=== PATIENT | female | born 1975 | race Caucasian/White ===

== ENCOUNTER → 2017-02-24 | Outpatient (CLI) | payer BC ==
[~2017-02-24] MED LIST: ACET-1311 PO; ALBU0.08 INH; CALC500C3 PO; CLR10 PO; FLUT0.0529 NAE; GADAVIST IV PRN; IBUP-1050 PO; LORA-741 PO; MULT-506 PO; SERT50TA PO; TAMO20TA9 PO
--- NOTE | 2017-02-24 17:14 | MAMMOGRAPHY REPORT ---
BREAST MRI OF BOTH BREASTS : 02/24/2017 CLINICAL HISTORY: History of breast cancer status post bilateral mastectomies with saline implant rec onstruction. COMPARISON: Comparison is made to exams dated: 02/20/2015 mammogram, 02/20/2015 MRI biopsy, 01/23/2015 ricardo mogram, 01/23/2015 MRI biopsy, and 12/28/2014 breast MRI - [facility]. Technique: The patient was placed prone in a dedicated breast imaging coil. Precontrast axial T1-gigi ghted, axial T2-weighted fat saturation, axial T1-weighted fat saturation, and sagittal and axial T2 STIR sequences were obtained. After the administration of 6 mL of Gadavist IV contrast, sequential T1 -weighted fat saturation images were obtained. Subtraction images were obtained of the dynamic contr ast enhanced sequences, and 3-D reformations were performed. The [employer] software was used for kinetic analysis. Findings: Again noted are postsurgical changes status post bilateral mastectomy with saline implant reconstruct ion. The bilateral saline implants are intact without evidence of rupture. There are no suspicious masses or areas of abnormal non-mass enhancement within either reconstructed breast. There is no evid ence of axillary adenopathy. The chest wall structures are negative. Visualized extramammary soft t issues are grossly unremarkable. IMPRESSION: ACR BI-RADS CATEGORY 2: BENIGN Status post bilateral mastectomy with saline implant reconstruction. No MRI evidence of malignancy i n either reconstructed breast. Vidya Lozano M.D. 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 letter sent: Normal 1/2 BI-RADS Code: ACR BI-RADS Category 2: Benign
== END | disposition home or self-care (01) ==
LOC: C.MRI 07:58
PROVIDERS: ATTEND Internal Medicine Hematology
DX: C50.412 Malignant neoplasm of upper-outer quadrant of left female breast (principal); Z90.13 Acquired absence of bilateral breasts and nipples

== ENCOUNTER → 2017-04-22 | Outpatient (CLI) | payer BC ==
[~2017-04-22] MED LIST changes: -GADAVIST IV PRN; +TAMO20TA47 PO; -TAMO20TA9 PO
[2017-04-22 14:18] VITALS: BP 94/56; PULSE 56; TEMP 36.7; O2SAT 98
--- NOTE | 2017-04-22 16:46 | Radiation Oncology Follow-Up ---
Radiation Oncology Follow-Up Date of Visit Apr 22, 2017. 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 Mendieta is a 41-year-old female without a family history of breast cancer. This patient was noted to have a palpable left breast lesion on a routine gynecologic visit. She therefore underwent her first ever bilateral mammogram performed on 11/30/2014. A palpable lesion was confirmed. The mammogram showed grouped indistinct calcifications present in the left breast at the 2 o' clock position. Targeted ultrasound demonstrated a corresponding irregular hypoechoic mass with internal vascularity and internal calcifications measuring 2.2 x 1.2 x 1.8 cm. An additional hypoechoic masses noted at the 3 o'clock position 2 cm from the nipple measuring 0.7 x 0.6 x 0.7 cm. A third palpable hypoechoic solid mass was noted at the 2 to 3 o'clock position 3 cm from the nipple measuring 1.0 x 0.6 x 1.1 cm. Targeted ultrasound of the left axilla demonstrates physiological-appearing lymph nodes. The left breast was extremely dense. The right breast was also extremely dense with scattered calcifications likely Velcade of calcium. These findings are likely benign with a recommended short interval follow-up in 6 months. Biopsy of these lesions were recommended. On 12/06/2014 core biopsies of Site A and Site B were performed. The first was at the 2 o'clock position revealing invasive carcinoma grade 2 with ductal carcinoma in situ, intermediate grade nuclei and solid type. Lymphovascular invasion was present. The biopsy of the second site was 4 cm from the nipple at the 3 o'clock position also revealed invasive carcinoma grade 2 with lymphovascular invasion. Accession #: [id number]. Site A was ER strongly positive and CT weakly positive with HER-2/alexy negative. Site B was ER strongly positive, CT weakly positive and HER-2/alexy negative. The patient ultimately went on to have an Oncotype DX with a recurrence score of 32 placing her in the high risk category. Patient underwent additional staging procedures including an MRI of the bilateral breast tissue. This was ordered by Dr. Leonides Hein. This revealed several masses and non-mass enhancement within the left breast consistent with the biopsy-proven left breast cancer and compatible with multicentric disease. There was suspicion for pectoralis muscle invasion by the mass in the far posterior 3:00 axis. However no left axillary or right axillary lymphadenopathy was identified. Scattered foci of enhancement was noted within the right breast probably benign. However given the extent of the contralateral disease they suggested consideration of sampling the most suspicious focus of enhancement measuring 3.9 mm in the posterior 7 to 8 o' clock position of the right breast. Therefore on 01/23/2015 the patient underwent an MRI biopsy of the right breast the enhancing focus in the medial right breast revealed benign breast tissue with fibrocystic change and adenosis Case: [id number] the biopsy from the enhancing focus of the right upper inner quadrant revealed fibrocystic change with scattered microcalcifications but no malignancy. Case: [id number]. Unilateral right digital diagnostic mammogram performed on 02/20/2015 identified a new biopsy marker clip in the right breast following the MRI guided biopsy. The patient met with Dr. Leonides Hein to discuss treatment options. She also met with Dr. Placido Cantu the plastic surgeon. The patient did undergo genetic testing and reportedly was negative for BRCA1 and 2. However after discussions with her surgeons the patient decided to proceed with bilateral mastectomies and immediate breast reconstruction with tissue expanders. This procedure was performed on 02/25/2015 consisting of a left mastectomy with sentinel lymph node biopsy and completion left axillary lymph node dissection, right mastectomy and right axillary sentinel lymph node biopsy followed by reconstruction. The right breast tissue revealed fibrocystic change with biopsy cavity identified but no intraductal or invasive carcinoma identified. The right axillary sentinel node biopsy revealed no metastatic carcinoma. 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 Grossly 2 separate tumor nodules were noted one measuring 3.0 cm and the second 1.5 cm. These were approximately 0.7 cm apart. A section taken from the tissue between the 2 nodules showed no similar appearing carcinoma. 2 nodules were somewhat similar in appearance both with micropapillary carcinoma features. The smaller nodule also had some mucinous features. The left sentinel node revealed metastatic carcinoma containing a 1.0 x 0.2 mm subcutaneous capsular metastasis. The additional axillary dissection identified an additional 12 axillary lymph nodes one of which contained a 0.2 mm sub-capsular deposit of micrometastatic carcinoma. No macro metastatic isolated tumor cells are identified and no extranodal extension is noted. Therefore a total of 2 out of 13 lymph nodes were positive. The margin status was carefully evaluated. The invasive carcinoma approached within 0.2 cm of the deep margin. DCIS approached within 0.1 cm of the deep margin. Away from the skin is a superficial soft tissue/ breast parenchymal margin and invasive carcinoma shows focal involvement of the superficial margin (at this margin is cauterized carcinoma). The final AJCC stage is pT2 pN1mi. Case: [id number]. Patient was suddenly seen by Dr. Denny Peterson for consideration of adjuvant systemic chemotherapy. His recommendation was based on the NCCN guidelines. He recommended 4 cycles of TC chemotherapy followed by tamoxifen. The patient was able to complete all 4 cycles without interruption, dose reduction or delays. She completed her systemic chemotherapy on May 30. The question of adjuvant radiation was discussed with the patient both by Dr. Hein and by Dr. Peterson. We are seeing the patient in referral for evaluation and discussion of the pros and cons of adjuvant radiation in this setting. She underwent radiation therapy to the left chest wall, supraclavicular area, and axilla. This was completed on 09/25/2015. She received 6120 cGy. Interim History She's been doing well over this past year. She denies any changes to the implanted breasts. She is noted no masses or tenderness no change of the axilla. She has a small area of dry skin in the axilla. She had recheck imaging with an MRI of the breasts 02/24/2017. This showed post bilateral mastectomies with saline implant reconstruction. No MRI evidence of malignancy in either reconstructed breast. On her last visit to Dr. Peterson she had mentioned a feeling of lightheadedness with standing quickly. She also has a tingling sensation on the right side of her head. Dr. Peterson ordered an MRI. This is going to be performed at this Wednesday. Allergies Coded Allergies: Cephalosporins (Verified Allergy, Unknown, KEFLEX, 02/25/15) Home Medications Scheduled Calcium Carbonate (Tums), 2 TAB PO DAILY Fluticasone Propionate (Nasal) (Flonase), 2 SPRAYS PATO DAILY Loratadine (Claritin), 10 MG PO QAM Multivitamin (Multivitamin), 1 TAB PO AM Sertraline (Zoloft), 75 MG PO DAILY Tamoxifen (Nolvadex), 20 MG PO DAILY Scheduled PRN Acetaminophen (Tylenol), 650 MG PO Q6 PRN for Pain or Fever Albuterol Soln (Proventil 0.083% 2.5MG/3ML), 2.5 MG INH Q6 PRN for SOB/Wheezing Ibuprofen (Advil), 200-600 MG PO Q4H PRN for Pain Review of Systems Gastrointestinal: Symptoms: WNL Oral: Symptoms: No Problems Respiratory: Symptoms: WNL Respiratory Comments: Dry cough from dry weather - got over cold 1-2 weeks ago Urinary: Symptoms: WNL Skin: Symptoms: No Problems Breast: Right Upper Arm Measurement: 26.0 Right Mid Arm Measurement: 23.5 Right Wrist Measurement: 15.5 Left Upper Arm Measurement: 26.0 Left Mid Arm Measurement: 22.5 Left Wrist Measurement: 14.8 Arm Dominence: Right Patient Cosmetic Evaluation: Excellent Staff Cosmetic Evalaluation: Excellent Physical Exam Vital Signs Date Time Temp Pulse Resp B/P (MAP) Pulse Ox O2 Delivery O2 Flow Rate FiO2 04/22/17 14:18 36.7 56 16 94/56 98 Pain: Side: Bilateral Pain Location: Breast Patient Pain Scale: 0 - 10 Initial Pain Intensity: 0.0 Pain Description: Dull, Aching, Soreness Additional Comments: Under left axilla - where lymph nodes were removed Fatigue: None General Appearance: no apparent distress Eyes: normal inspection, EOMI ENT: normal ENT inspection, hearing grossly normal Neck: no adenopathy, thyroid normal Respiratory/Chest: lungs clear, no respiratory distress, no accessory muscle use Breast: Breast examination reveals bilateral implants. There are no masses or tenderness no axillary adenopathy. There is some tightness of the pectoralis minor area on the left. There is also a small 1 cm patch of skin dryness in the axilla. There is no telangiectasia. Cardiovascular: regular rate, rhythm, no gallop, no murmur Abdomen: non tender Extremities: no pedal edema Neurologic/Psychiatric: no motor/sensory deficits, alert, normal mood/affect Skin: warm/dry Additional Studies Patient: DEE DEE MENDIETA [facility] Rec: [id number] Address1: [address] Address2: [facility] ID: [id number] Date: 1975 Sex: F Ref Phy: Denny Peterson M.D. Att Phy: Denny Peterson M.D. Darlene Phy: Cuba Borrero M.D. Inter Phy: Vidya Lozano MD [facility] Zip: [place] [address] SC: C.MRI Report #: [id number] Ground Host/Hostess: FAUZIA Diagnosis: HX OF BC, BILATERAL MASTECTOMIES, IMPLANTS Service Date: 02/24/17 MNE: [id number] Ordering Dr: Denny Peterson M.D. CC: Denny Peterson M.D. CONF: DICTATED BY: Vidya Lozano MD MAMMOGRAPHY REPORT BREAST MRI OF BOTH BREASTS : 02/24/2017 CLINICAL HISTORY: History of breast cancer status post bilateral mastectomies with saline implant reconstruction. COMPARISON: Comparison is made to exams dated: 02/20/2015 mammogram, 02/20/2015 MRI biopsy, 01/23/2015 mammogram, 01/23/2015 MRI biopsy, and 12/28/2014 breast MRI - [facility]. Technique: The patient was placed prone in a dedicated breast imaging coil. Precontrast axial T1-weighted, axial T2-weighted fat saturation, axial T1- weighted fat saturation, and sagittal and axial T2 STIR sequences were obtained. After the administration of 6 mL of Gadavist IV contrast, sequential T1-weighted fat saturation images were obtained. Subtraction images were obtained of the dynamic contrast enhanced sequences, and 3-D reformations were performed. The [employer] software was used for kinetic analysis. Findings: Again noted are postsurgical changes status post bilateral mastectomy with saline implant reconstruction. The bilateral saline implants are intact without evidence of rupture. There are no suspicious masses or areas of abnormal non-mass enhancement within either reconstructed breast. There is no evidence of axillary adenopathy. The chest wall structures are negative. Visualized extramammary soft tissues are grossly unremarkable. IMPRESSION: ACR BI-RADS CATEGORY 2: BENIGN Status post bilateral mastectomy with saline implant reconstruction. No MRI evidence of malignancy in either reconstructed breast. Vidya Lozano M.D. 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 Peterson. She'll undergo the MRI on Wednesday for the lightheadedness and "tingling" sensation of the right scalp. She continues on tamoxifen. We asked her to return to our office in 1 year. She may call if she has any questions or concerns in the interim. Total Time In Follow-Up I spent 20 minutes speaking to the patient performing examination. I spent 15 minutes reviewing information in completing this note. Copy To Cuba Borrero M.D.; Denny Peterson M.D. Problem Qualifiers (1) Breast cancer: Breast location: upper outer quadrant of breast Estrogen receptor status: positive Patient sex: female Laterality: left Qualified Codes: C50.412 - Malignant neoplasm of upper-outer quadrant of left female breast; Z17.0 - Estrogen receptor positive status [ER+]
== END | disposition home or self-care (01) ==
LOC: C.ONC 14:00
PROVIDERS: ATTEND Physician Assistant Medical
DX: Z08 Encounter for follow-up examination after completed treatment for malignant neoplasm (principal); Z92.3 Personal history of irradiation; Z85.3 Personal history of malignant neoplasm of breast

== ENCOUNTER → 2018-04-21 | Outpatient (CLI) | payer BC ==
[2017-04-22 14:18] VITALS: BP 94/56; PULSE 56
[~2018-04-21] MED LIST changes: +ALBINS/ INH; +CETI10TA84 PO; +FLUT0.15 NAE; -LORA-741 PO; -TAMO20TA47 PO; +TAMO20TA9 PO
[2018-04-21 13:52] VITALS: BP 94/58; PULSE 56; TEMP 36.8; O2SAT 98
--- NOTE | 2018-04-21 16:07 | Radiation Oncology Follow-Up ---
Radiation Oncology Follow-Up Date of Visit Apr 21, 2018. 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 Davis is without a family history of breast cancer. This patient was noted to have a palpable left breast lesion on a routine gynecologic visit. She therefore underwent her first ever bilateral mammogram performed on 11/30/2014. A palpable lesion was confirmed. The mammogram showed grouped indistinct calcifications present in the left breast at the 2 o'clock position. Targeted ultrasound demonstrated a corresponding irregular hypoechoic mass with internal vascularity and internal calcifications measuring 2.2 x 1.2 x 1.8 cm. An additional hypoechoic masses noted at the 3 o'clock position 2 cm from the nipple measuring 0.7 x 0.6 x 0.7 cm. A third palpable hypoechoic solid mass was noted at the 2 to 3 o'clock position 3 cm from the nipple measuring 1.0 x 0.6 x 1.1 cm. Targeted ultrasound of the left axilla demonstrates physiological -appearing lymph nodes. The left breast was extremely dense. The right breast was also extremely dense with scattered calcifications likely Velcade of calcium. These findings are likely benign with a recommended short interval follow-up in 6 months. Biopsy of these lesions were recommended. On 12/06/2014 core biopsies of Site A and Site B were performed. The first was at the 2 o'clock position revealing invasive carcinoma grade 2 with ductal carcinoma in situ, intermediate grade nuclei and solid type. Lymphovascular invasion was present. The biopsy of the second site was 4 cm from the nipple at the 3 o'clock position also revealed invasive carcinoma grade 2 with lymphovascular invasion. Accession #: [id number]. Site A was ER strongly positive and DC weakly positive with HER-2/alexy negative. Site B was ER strongly positive, DC weakly positive and HER-2/alexy negative. The patient ultimately went on to have an Oncotype DX with a recurrence score of 32 placing her in the high risk category. Patient underwent additional staging procedures including an MRI of the bilateral breast tissue. This was ordered by Dr. Leonides Hein. This revealed several masses and non-mass enhancement within the left breast consistent with the biopsy-proven left breast cancer and compatible with multicentric disease. There was suspicion for pectoralis muscle invasion by the mass in the far posterior 3:00 axis. However no left axillary or right axillary lymphadenopathy was identified. Scattered foci of enhancement was noted within the right breast probably benign. However given the extent of the contralateral disease they suggested consideration of sampling the most suspicious focus of enhancement measuring 3.9 mm in the posterior 7 to 8 o' clock position of the right breast. Therefore on 01/23/2015 the patient underwent an MRI biopsy of the right breast the enhancing focus in the medial right breast revealed benign breast tissue with fibrocystic change and adenosis Case: [id number] the biopsy from the enhancing focus of the right upper inner quadrant revealed fibrocystic change with scattered microcalcifications but no malignancy. Case: [id number]. Unilateral right digital diagnostic mammogram performed on 02/20/2015 identified a new biopsy marker clip in the right breast following the MRI guided biopsy. The patient met with Dr. Leonides Hein to discuss treatment options. She also met with Dr. Placido Cantu the plastic surgeon. The patient did undergo genetic testing and reportedly was negative for BRCA1 and 2. However after discussions with her surgeons the patient decided to proceed with bilateral mastectomies and immediate breast reconstruction with tissue expanders. This procedure was performed on 02/25/2015 consisting of a left mastectomy with sentinel lymph node biopsy and completion left axillary lymph node dissection, right mastectomy and right axillary sentinel lymph node biopsy followed by reconstruction. The right breast tissue revealed fibrocystic change with biopsy cavity identified but no intraductal or invasive carcinoma identified. The right axillary sentinel node biopsy revealed no metastatic carcinoma. 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 Grossly 2 separate tumor nodules were noted one measuring 3.0 cm and the second 1.5 cm. These were approximately 0.7 cm apart. A section taken from the tissue between the 2 nodules showed no similar appearing carcinoma. 2 nodules were somewhat similar in appearance both with micropapillary carcinoma features. The smaller nodule also had some mucinous features. The left sentinel node revealed metastatic carcinoma containing a 1.0 x 0.2 mm subcutaneous capsular metastasis. The additional axillary dissection identified an additional 12 axillary lymph nodes one of which contained a 0.2 mm sub-capsular deposit of micrometastatic carcinoma. No macro metastatic isolated tumor cells are identified and no extranodal extension is noted. Therefore a total of 2 out of 13 lymph nodes were positive. The margin status was carefully evaluated. The invasive carcinoma approached within 0.2 cm of the deep margin. DCIS approached within 0.1 cm of the deep margin. Away from the skin is a superficial soft tissue/ breast parenchymal margin and invasive carcinoma shows focal involvement of the superficial margin (at this margin is cauterized carcinoma). The final AJCC stage is pT2 pN1mi. Case: [id number]. Patient was suddenly seen by Dr. Denny Peterson for consideration of adjuvant systemic chemotherapy. His recommendation was based on the NCCN guidelines. He recommended 4 cycles of TC chemotherapy followed by tamoxifen. The patient was able to complete all 4 cycles without interruption, dose reduction or delays. She completed her systemic chemotherapy on May 30. The question of adjuvant radiation was discussed with the patient both by Dr. Hein and by Dr. Peterson. We are seeing the patient in referral for evaluation and discussion of the pros and cons of adjuvant radiation in this setting. She underwent radiation therapy to the left chest wall, supraclavicular area, and axilla. This was completed on 09/25/2015. She received 6120 cGy. Interim History She has been doing well over the past year. She is noticed no change to the chest wall or implant and breast area. There are no masses or tenderness and no axillary adenopathy. She has had no swelling of her arm. She is on tamoxifen and denies side effects. She is followed with MRIs of the breast. She had an MRI March 31, 2018. This showed postsurgical changes with bilateral mastectomies. The saline implants are intact. There is no evidence of rupture. There were no suspicious enhancing masses or areas of abnormal non- mass enhancement within either reconstructed breast. Visualized portion of the extramammary soft tissue are grossly unremarkable. This was given a BI-RADS Category 2. No MRI evidence of malignancy. Allergies Coded Allergies: Cephalosporins (Verified Allergy, Unknown, KEFLEX, 02/25/15) Home Medications Scheduled Calcium Carbonate (Tums), 2 TAB PO DAILY Cetirizine (Zyrtec), 10 MG PO DAILY Fluticasone Propionate (Nasal) (Flonase), 2 SPRAYS PATO DAILY Multivitamin (Multivitamin), 1 TAB PO AM Sertraline (Zoloft), 50 MG PO DAILY Tamoxifen (Nolvadex), 20 MG PO DAILY Scheduled PRN Acetaminophen (Tylenol), 650 MG PO Q6 PRN for Pain or Fever Albuterol Soln (Proventil 0.083% 2.5MG/3ML), 2.5 MG INH Q6 PRN for SOB/Wheezing Ibuprofen (Advil), 200-600 MG PO Q4H PRN for Pain Review of Systems Gastrointestinal: Symptoms: WNL Oral: Symptoms: No Problems Respiratory: Symptoms: WNL Respiratory Comments: Dry cough from dry weather - got over cold 1-2 weeks ago Urinary: Symptoms: WNL Skin: Symptoms: No Problems Breast: Right Upper Arm Measurement: 27.0 Right Mid Arm Measurement: 24.3 Right Wrist Measurement: 15.5 Left Upper Arm Measurement: 27.0 Left Mid Arm Measurement: 23.0 Left Wrist Measurement: 15.0 Arm Dominence: Right Patient Cosmetic Evaluation: Excellent Staff Cosmetic Evalaluation: Excellent Physical Exam Vital Signs Date Time Temp Pulse Resp B/P (MAP) Pulse Ox O2 Delivery O2 Flow Rate FiO2 04/21/18 13:52 36.8 56 20 94/58 98 Fatigue: None General Appearance: no apparent distress Eyes: normal inspection, EOMI ENT: normal ENT inspection, hearing grossly normal Neck: no adenopathy, thyroid normal Respiratory/Chest: lungs clear, no respiratory distress, no accessory muscle use Breast: Breast examination reveals bilateral breast implants. There are no masses or tenderness and no axillary adenopathy. There is tightness of the musculature in the pectoralis minor area. Using the Solway score cosmesis she has a good outcome. There are no areas of telangiectasia. Cardiovascular: regular rate, rhythm, no gallop, no murmur Extremities: no pedal edema Neurologic/Psychiatric: no motor/sensory deficits, alert, normal mood/affect Skin: warm/dry Pain Management Patient Reports Pain: No Side: Bilateral Patient Preferred Pain Scale: 0 - 10 Initial Pain Intensity: 0.0 Pain Management Plan She denies pain therefore requires no pain management. Laboratory Laboratory Results: not applicable Pathology Pathology Results: were reviewed, and pertinent findings noted in HPI Imaging Imaging Studies: were reviewed Imaging Comments Reviewed in the interim history. Assessment & Plan Plan: Continue regular follow-up with medical oncology. She is having yearly MRIs of the implanted breasts. Continue regular follow-up with her primary care provider. She continues on tamoxifen. We asked her to return to our office in 1 year. She may call if she has any questions or concerns in the interim. Total Time In Follow-Up I spent 20 minutes speaking to the patient in performing examination. I spent 15 minutes reviewing information and completing this note. Copy To Reji Pillai MD; [place] Borrero M.D. Problem Qualifiers (1) Breast cancer: Breast location: upper outer quadrant of breast Estrogen receptor status: positive Patient sex: female Laterality: left Qualified Codes: C50.412 - Malignant neoplasm of upper-outer quadrant of left female breast; Z17.0 - Estrogen receptor positive status [ER+]
== END | disposition home or self-care (01) ==
LOC: C.ONC 13:44
PROVIDERS: ATTEND Physician Assistant Medical
DX: Z08 Encounter for follow-up examination after completed treatment for malignant neoplasm (principal); Z92.3 Personal history of irradiation; Z85.3 Personal history of malignant neoplasm of breast

== ENCOUNTER 2018-04-26 21:19 | Emergency (ER) | payer BC ==
[~2018-04-26] VITALS: Ht 172.7 cm; Wt 64.1 kg
[~2018-04-26 21:19] MED LIST changes: -ALBINS/ INH; -CLR10 PO; -FLUT0.15 NAE
[2018-04-26 21:22] VITALS: TEMP 36.9; Ht 172.7 cm; Wt 64.1 kg
[2018-04-26] MEDS ORDERED: IBUPROFEN 600 MG TAB PO STA (21:29)
[2018-04-26] MEDS ORDERED: FLUT0.15 NAE (22:37)
[2018-04-26] MEDS ORDERED: ALBINS/ INH (22:37)
[2018-04-26 23:29] VITALS: BP 98/56; PULSE 61; O2SAT 98
--- NOTE | 2018-04-26 23:30 | DIAGNOSTIC IMAGING REPORT ---
RIGHT THUMB 3 VIEWS HISTORY: right thumb injury COMPARISON: None. FINDINGS: There is no fracture or dislocation. Soft tissues are unremarkable. No radiopaque foreign bodies. IMPRESSION: No fracture or dislocation within the right thumb. Electronically signed by: Jeremías William M.D. 04/26/2018 11:29 PM Dictated Date/Time: 04/26/2018 11:28 PM
--- NOTE | 2018-04-26 23:37 | EMERGENCY ROOM VISIT NOTE ---
ED Visit Note First contact with patient: 21:25 CHIEF COMPLAINT: Thumb injury HISTORY OF PRESENT ILLNESS: This 42 yo patient presents to the emergency department with after injuring the right thumb in a door just [employer]. The patient rates the pain as throbbing and 5/10. The range of motion of the thumb is limited secondary to pain. No numbness or tingling. No lacerations. No other injuries. The patient has not had previous injury to this thumb. The patient has taken nothing for the pain. REVIEW OF SYSTEMS: A 6 system review of systems was completed with positives and pertinent negatives in the HPI. ALLERGIES: Keflex MEDICATIONS: Tamoxifen, reviewed PMH: Breast CA, anxiety and depression, seasonal allergies SOCIAL HISTORY: No drug use PHYSICAL EXAM: Vital Signs: Reviewed Nurse's notes, vital signs stable. GENERAL : Pleasant female, in no acute distress, but appears to be in pain, well- developed, well-nourished. MUSCULOSKELETAL: There is no deformity of the right thumb. Range of motion of the thumb is limited secondary to pain. The PP joint is maximally tender to palpation. There is no ligamentous instability. There is no laceration. Capillary refill less than 2 seconds. No tenderness of the remaining fingers or hand. Full range of motion of the wrist. no snuffbox tenderness. Radial pulse 2+. NEURO: Alert and oriented to person, place, and time. Normal sensation to light and sharp touch. EMERGENCY DEPARTMENT COURSE: I examined the patient. An x-ray of the right thumb was reviewed by myself and radiology and showed no fracture. The thumb was immobiziled by thumb spica under my direction and the position was satisfactory. Neurovascular status rechecked and intact. Patient was informed to follow-up with orthopedics for possible tendon injury as she had some decreased strength with extension and flexion. No other injuries are noted. Patient was well-appearing. Patient was informed to return to the ER immediately for severe pain numbness, tingling, worsening signs or symptoms or as needed. Patient was discharged home in good condition. DIAGNOSIS: Right thumb injury DISCHARGE INSTRUCTIONS: Ibuprofen(Motrin, Advil) may be used for fever or pain. Use 600mg every six hours as needed. Take with food. Avoid using more than 2400mg in a 24 hour period. Do not use 2400mg per day for more than three consecutive days without physician direction. Prolonged inappropriate use can lead to stomach upset or ulcers. This medication can be taken if you need to drive, work, or perform activities which may be dangerous when taking narcotic pain medication. (AND/OR) Acetaminophen(Tylenol) may be used for fever or pain. Use 1000mg every six hours as needed. Avoid using more than 3000mg in a 24 hour period. This medication can be taken if you need to drive, work, or perform activities which may be dangerous when taking narcotic pain medication. Ice compresses for 20 minutes at a time four times daily for 2-3 days. Rest and elevate your injury. Wear thumb spica until pain resolves. Do not have it so tight that you cannot feel your finger. Continue current medications. Return to the ER immediately for any numbness, tingling, severe pain, extreme swelling in the extremity or as needed. Call Orthopedics in 3-5 days if symptoms persist to arrange follow up for your injury. 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 Two separate primaries 3.0 and 1.5 cm Pathologic stage [id number] stage IIB Oncotype DX score of 32 Status post systemic chemotherapy Taxotere and Cytoxan for 4 cycles Status post completion of radiation therapy 09/25/2015 received 6120 cGy Plan treatment with tamoxifen Status post genetic testing of BRCA1 and BRCA2 negative Status: Resolved Current/Historical Medications Scheduled Calcium Carbonate (Tums), 2 TAB PO DAILY Cetirizine (Zyrtec), 10 MG PO DAILY Fluticasone Propionate (Nasal) (Flonase Allergy Relief), 2 SPRAYS PATO DAILY Multivitamin (Multivitamin), 1 TAB PO AM Sertraline (Zoloft), 50 MG PO DAILY Tamoxifen (Nolvadex), 20 MG PO DAILY Scheduled PRN Albuterol Sulf (Proventil 0.083% 2.5MG/3ML), 2.5 MG INH Q6H PRN for SOB/Wheezing Allergies Coded Allergies: Cephalosporins (Verified Allergy, Unknown, KEFLEX, 04/26/18) Vital Signs Date Time Temp Pulse Resp B/P (MAP) Pulse Ox O2 Delivery O2 Flow Rate FiO2 04/26/18 23:29 61 18 98/56 98 04/26/18 21:22 36.9 79 18 110/73 96 Room Air Medications Administered Medications (Trade) Dose Ordered Sig/Milena Route Start Time Stop Time Status Last Admin Dose Admin Ibuprofen (Motrin Tab) 600 mg NOW STAT PO 04/26/18 21:29 04/26/18 21:33 DC 04/26/18 21:42 600 MG Departure Information Referrals Cuba Borrero M.D. (PCP) Patient Instructions [facility]
== END 2018-04-26 23:30 | disposition home or self-care (01) ==
LOC: C.EDB 21:20 → C.EDD 23:30
DX: S69.91XA Unspecified injury of right wrist, hand and finger(s), initial encounter (principal); W23.0XXA Caught, crushed, jammed, or pinched between moving objects, initial encounter; Z88.1 Allergy status to other antibiotic agents; Z79.899 Other long term (current) drug therapy; Z92.3 Personal history of irradiation; Z85.3 Personal history of malignant neoplasm of breast; Z90.13 Acquired absence of bilateral breasts and nipples; F41.9 Anxiety disorder, unspecified; F32.9 Major depressive disorder, single episode, unspecified

== ENCOUNTER 2021-12-26 13:14 | Inpatient (IN) ==
--- NOTE | 2021-12-26 14:07 | Emergency Department Note ---
Impression & Plan Suicidal ideations, Mood disorder ED Provider Note NAME: DEE DEE MENDIETA AGE: 46 SEX: F : 1975 ARRIVES VIA: Walk-In INFORMANT: Patient ED PROVIDER(S): Yeyo Mascorro DO CHIEF COMPLAINT: mood disorder HPI: Patient is a 46-year-old female who presents ER for suicidal ideations with a plan to kill herself by crashing the car. She notes these thoughts of killing herself have been present for about 2 to 3 weeks. She has been much more depressed over the past several weeks as well. She has been having trouble leaving her room and only went to work a total of 4 days in the past 2 weeks. She denies any auditory visual hallucinations. No chest pain or shortness of breath. No nausea vomiting or diarrhea. She spoke with national suicide hotline as well as crisis and they referred her in for admission and further evaluation. ROS: See above HPI for pertinent positives & negatives. A total of 10 systems reviewed and were otherwise negative. PAST MEDICAL HISTORY:See Below PAST SURGICAL HISTORY:See Below FAMILY HISTORY:See Below SOCIAL HISTORY:See Below HOME MEDICATIONS:See Below ALLERGIES:See Below VITALS:See Below PHYSICAL EXAMINATION: GENERAL: Sitting up in bed, alert, well appearing, well nourished, no distress, non-toxic EYE EXAM: normal conjunctiva. PERRL and EOM's grossly intact. OROPHARYNX: no exudate, no erythema, lips, buccal mucosa, and tongue normal and mucous membranes are moist NECK: supple, no nuchal rigidity, no adenopathy, non-tender LUNGS: Clear to auscultation. Normal chest wall mechanics HEART: no murmurs, S1 normal and S2 normal ABDOMEN: abdomen soft, non-tender, normo-active bowel sounds, no masses, no rebound or guarding. UPPER EXTREMITIES: upper extremities are grossly normal. LOWER EXTREMITIES: No pitting edema. NEURO EXAM: Normal sensorium, cranial nerves II-XII grossly intact, normal speech, no gross weakness of arms, no gross weakness of legs. PSYCH: Admits to suicidal ideations with a plan to kill her self MEDICAL DECISION MAKING: Patient is a 46-year-old female who presents ER with suicidal ideations with a clear plan to kill herself. Blood work was obtained and showed no significant leukocytosis or anemia. BMP along with LFTs bilirubin and TSH was unremarkable. UA was contaminated. Tox was negative. Alcohol was negative. Covid was negative. Patient rested under my care without complaints. Patient was signed out Dr. Perez at change of shift awaiting placement on 201 for suicidal ideations. Observation Status: Indication: Mood disorder Patient with no pertinent family history, was seen first at 1320 hrs and was necessary in order to determine medical stability and avoid unnecessary admission. Upon reevaluation, 3.5 hours of observation revealed that the patient should be admitted to a psychiatric facility. Disposition date and time patient was signed out Dr. Perez change shift on 12/26/2021 at 1700 Triage Nursing notes reviewed. Limited review of prior medical records performed Vital Signs: reviewed and remarkable for no significant abnormalities Differential diagnosis: Mood disorder, infection, hypoglycemia, electrolyte abnormalities, cardiac sources, intracerebral event, toxicologic, trauma, neurologic, as well as other pathologies. ER treatment provided: See below Diagnostics interpreted by me: ECG: none Laboratory studies: As stated above and show below. Imaging studies: See below Consultation(s): none Procedures: none Critical Care: None Past Med/Surg History Social History Smoking Status: Never smoker Preferred Language: Mongolian Beliefs That Will Affect Care: None Feels Safe at Home: Yes Allergies Allergies Allergy/AdvReac Type Severity Reaction Status Date / Time Cephalosporins Allergy Unknown KEFLEX Verified 04/26/19 14:31 Home Meds Home Medications Medication Instructions Recorded Confirmed Multivitamin 1 tab PO AM #0 02/28/09 12/26/21 Calcium Carbonate (Tums) 2 tab PO DAILY #0 04/23/16 12/26/21 Cetirizine (Zyrtec) 10 mg PO DAILY #0 tab 04/21/18 12/26/21 ALBUTEROL SULF (PROVENTIL 0.083% 2.5 mg INHALATION Q6H PRN #0 dose 04/26/18 12/26/21 2.5MG/3ML) Fluticasone Propionate (Nasal) 2 spry PATO DAILY #0 04/26/18 12/26/21 (Flonase Allergy Relief) montelukast 10 mg tablet 10 mg PO DAILY tab 04/26/19 12/26/21 (Singulair) Sertraline (Zoloft) 100 mg PO HS 30 Days tab 04/25/20 12/26/21 Results & Data (ED) Vital Signs Vital Signs - 24 hr 12/26/21 13:15 12/26/21 15:31 Temperature 36.7 C Temperature Source Temporal Artery Scan Pulse Rate 71 Pulse Rate [Right Finger] 61 Respiratory Rate 20 20 Respiratory Effort / Characteristics Non-Labored Spontaneous Non-Labored Spontaneous Respiratory Depth Normal Normal Respiratory Pattern Regular Regular Blood Pressure 101/71 Blood Pressure [Right Arm] 110/76 Blood Pressure Mean 81 Blood Pressure Mean [Right Arm] 87 Pulse Oximetry 98 97 Oxygen Delivery Method Room Air Room Air Sepsis Recent Fever Within 48 Hours No Sepsis New/Unexplained Change in Mental Status No Sepsis Action Taken by Nursing No Action Required Laboratory Data Result diagrams: 12/26/21 14:36 12/26/21 14:36 Lab Results 12/26/21 12/26/21 12/26/21 Range/Units 13:00 13:00 14:24 WBC (4.8-10.8) K/uL RBC (4.2-5.4) M/uL Hgb (12.0-16.0) g/dL Hct (37-47) % MCV (80-100) fL MCH (25-34) pg MCHC (32-36) g/dL RDW Std Deviation (36.4-46.3) fL RDW Coeff of Margo (11.5-14.5) % Plt Count (130-400) K/uL MPV (7.4-10.4) fL Immature Gran % (Auto) % Neut % (Auto) % Lymph % (Auto) % [place] % (Auto) % Eos % (Auto) % Baso % (Auto) % Neut # (Auto) (1.4-6.5) K/uL Lymph # (Auto) (1.2-3.4) K/uL [place] # (Auto) (0.11-0.59) K/uL Eos # (Auto) (0-0.5) K/uL Baso # (Auto) (0-0.2) K/uL Immature Gran # (Auto) (0.00-0.02) K/uL Sodium (136-145) mmol/L Potassium (3.5-5.1) mmol/L Chloride (98-107) mmol/L Carbon Dioxide (21-32) mmol/L Anion Gap (3-11) BUN (6-23) mg/dl Creatinine (0.6-1.2) mg/dl Est Cr Clr Drug Dosing ml/min Est GFR ( Amer) ml/min Est GFR (Non-Af Amer) ml/min BUN/Creatinine Ratio (10-20) Glucose (70-99(Fasting)) mg/dl Calcium (8.5-10.1) mg/dl Total Bilirubin (0.2-1.0) mg/dl AST (13-39) U/L ALT (7-52) U/L Alkaline Phosphatase (34-104) U/L Total Protein (6.0-8.3) gm/dl Albumin (3.4-5.0) gm/dl Globulin (2.5-4.0) gm/dl Albumin/Globulin Ratio (0.9-2) TSH (0.300-4.500) uIu/ml Urine Color Yellow Urine Appearance Clear (Clear) Urine pH 5.5 (4.5-7.5) Ur Specific [place] 1.004 (1.000-1.030) Urine Protein Negative (Negative) Urine Glucose (UA) Negative (Negative) Urine Ketones Negative (Negative) Urine Blood Negative (Negative) Urine Nitrite Negative (Negative) Urine Bilirubin Negative (Negative) Urine Urobilinogen Negative (Negative) Ur Leukocyte Esterase 2+ H (Negative) Urine WBC (Auto) 5-10 H (0-5) /hpf Urine RBC (Auto) 0-4 (0-4) /hpf U Hyaline Cast (Auto) 1-5 (0-5) /lpf U Epithel Cells (Auto) 10-20 H (0-5) /lpf Urine Bacteria (Auto) Negative (Negative) Urine Test (Negative) Salicylates (3.0-30) mg/dl Urine Opiates Screen Neg (Neg) Ur Methadone, Qual Neg (Neg) Acetaminophen (10-30) ug/ml Urine Barbiturates Neg (Neg) Ur Phencyclidine (PCP) Neg (Neg) U Amphetamin/Meth Scrn Neg (Neg) MDMA (Ecstasy) Screen Neg (Neg) U Benzodiazepines Scrn Neg (Neg) Ur Cocaine Metabolite Neg (Neg) U Marijuana (THC) Screen Neg (Neg) Ethyl Alcohol mg/dL (<10.0) mg/dl SARS-CoV-2, RNA, NAAT NEGATIVE (NEGATIVE) 12/26/21 12/26/21 12/26/21 Range/Units 14:36 14:36 14:36 WBC 6.29 (4.8-10.8) K/uL RBC 5.00 (4.2-5.4) M/uL Hgb 14.2 (12.0-16.0) g/dL Hct 41.6 (37-47) % MCV 83.2 (80-100) fL MCH 28.4 (25-34) pg MCHC 34.1 (32-36) g/dL RDW Std Deviation 41.8 (36.4-46.3) fL RDW Coeff of Margo 13.8 (11.5-14.5) % Plt Count 200 (130-400) K/uL MPV 9.7 (7.4-10.4) fL Immature Gran % (Auto) 0.2 % Neut % (Auto) 63.7 % Lymph % (Auto) 27.7 % [place] % (Auto) 7.6 % Eos % (Auto) 0.5 % Baso % (Auto) 0.3 % Neut # (Auto) 4.01 (1.4-6.5) K/uL Lymph # (Auto) 1.74 (1.2-3.4) K/uL [place] # (Auto) 0.48 (0.11-0.59) K/uL Eos # (Auto) 0.03 (0-0.5) K/uL Baso # (Auto) 0.02 (0-0.2) K/uL Immature Gran # (Auto) 0.01 (0.00-0.02) K/uL Sodium 137 (136-145) mmol/L Potassium 3.9 (3.5-5.1) mmol/L Chloride 101 (98-107) mmol/L Carbon Dioxide 29 (21-32) mmol/L Anion Gap 7 (3-11) BUN 16 (6-23) mg/dl Creatinine 0.89 (0.6-1.2) mg/dl Est Cr Clr Drug Dosing 71.4 ml/min Est GFR ( Amer) 89.5 ml/min Est GFR (Non-Af Amer) 77.2 ml/min BUN/Creatinine Ratio 18.0 (10-20) Glucose 78 (70-99(Fasting)) mg/dl Calcium 9.3 (8.5-10.1) mg/dl Total Bilirubin 0.8 (0.2-1.0) mg/dl AST 17 (13-39) U/L ALT 16 (7-52) U/L Alkaline Phosphatase 74 (34-104) U/L Total Protein 7.0 (6.0-8.3) gm/dl Albumin 4.2 (3.4-5.0) gm/dl Globulin 2.8 (2.5-4.0) gm/dl Albumin/Globulin Ratio 1.5 (0.9-2) TSH 3.655 (0.300-4.500) uIu/ml Urine Color Urine Appearance (Clear) Urine pH (4.5-7.5) Ur Specific [place] (1.000-1.030) Urine Protein (Negative) Urine Glucose (UA) (Negative) Urine Ketones (Negative) Urine Blood (Negative) Urine Nitrite (Negative) Urine Bilirubin (Negative) Urine Urobilinogen (Negative) Ur Leukocyte Esterase (Negative) Urine WBC (Auto) (0-5) /hpf Urine RBC (Auto) (0-4) /hpf U Hyaline Cast (Auto) (0-5) /lpf U Epithel Cells (Auto) (0-5) /lpf Urine Bacteria (Auto) (Negative) Urine Test (Negative) Salicylates (3.0-30) mg/dl Urine Opiates Screen (Neg) Ur Methadone, Qual (Neg) Acetaminophen (10-30) ug/ml Urine Barbiturates (Neg) Ur Phencyclidine (PCP) (Neg) U Amphetamin/Meth Scrn (Neg) MDMA (Ecstasy) Screen (Neg) U Benzodiazepines Scrn (Neg) Ur Cocaine Metabolite (Neg) U Marijuana (THC) Screen (Neg) Ethyl Alcohol mg/dL (<10.0) mg/dl SARS-CoV-2, RNA, NAAT (NEGATIVE) 12/26/21 12/26/21 12/26/21 Range/Units 14:36 14:36 14:44 WBC (4.8-10.8) K/uL RBC (4.2-5.4) M/uL Hgb (12.0-16.0) g/dL Hct (37-47) % MCV (80-100) fL MCH (25-34) pg MCHC (32-36) g/dL RDW Std Deviation (36.4-46.3) fL RDW Coeff of Margo (11.5-14.5) % Plt Count (130-400) K/uL MPV (7.4-10.4) fL Immature Gran % (Auto) % Neut % (Auto) % Lymph % (Auto) % [place] % (Auto) % Eos % (Auto) % Baso % (Auto) % Neut # (Auto) (1.4-6.5) K/uL Lymph # (Auto) (1.2-3.4) K/uL [place] # (Auto) (0.11-0.59) K/uL Eos # (Auto) (0-0.5) K/uL Baso # (Auto) (0-0.2) K/uL Immature Gran # (Auto) (0.00-0.02) K/uL Sodium (136-145) mmol/L Potassium (3.5-5.1) mmol/L Chloride (98-107) mmol/L Carbon Dioxide (21-32) mmol/L Anion Gap (3-11) BUN (6-23) mg/dl Creatinine (0.6-1.2) mg/dl Est Cr Clr Drug Dosing ml/min Est GFR ( Amer) ml/min Est GFR (Non-Af Amer) ml/min BUN/Creatinine Ratio (10-20) Glucose (70-99(Fasting)) mg/dl Calcium (8.5-10.1) mg/dl Total Bilirubin (0.2-1.0) mg/dl AST (13-39) U/L ALT (7-52) U/L Alkaline Phosphatase (34-104) U/L Total Protein (6.0-8.3) gm/dl Albumin (3.4-5.0) gm/dl Globulin (2.5-4.0) gm/dl Albumin/Globulin Ratio (0.9-2) TSH (0.300-4.500) uIu/ml Urine Color Urine Appearance (Clear) Urine pH (4.5-7.5) Ur Specific [place] (1.000-1.030) Urine Protein (Negative) Urine Glucose (UA) (Negative) Urine Ketones (Negative) Urine Blood (Negative) Urine Nitrite (Negative) Urine Bilirubin (Negative) Urine Urobilinogen (Negative) Ur Leukocyte Esterase (Negative) Urine WBC (Auto) (0-5) /hpf Urine RBC (Auto) (0-4) /hpf U Hyaline Cast (Auto) (0-5) /lpf U Epithel Cells (Auto) (0-5) /lpf Urine Bacteria (Auto) (Negative) Urine Test Negative (Negative) Salicylates < 3.0 L (3.0-30) mg/dl Urine Opiates Screen (Neg) Ur Methadone, Qual (Neg) Acetaminophen < 3 L (10-30) ug/ml Urine Barbiturates (Neg) Ur Phencyclidine (PCP) (Neg) U Amphetamin/Meth Scrn (Neg) MDMA (Ecstasy) Screen (Neg) U Benzodiazepines Scrn (Neg) Ur Cocaine Metabolite (Neg) U Marijuana (THC) Screen (Neg) Ethyl Alcohol mg/dL < 10.0 (<10.0) mg/dl SARS-CoV-2, RNA, NAAT (NEGATIVE) Discharge Plan Visit Data Chief Complaint: Mental Health Evaluation Stated Complaint: MENTAL HEALTH, SUICIDAL THOUGHTS ED Provider: Homero Perez Discharge Problem: Suicidal ideations, Mood disorder Forms Stand Alone Forms: [facility], Suicide Prevention Resources Prescriptions Prescriptions: No Action montelukast [Singulair] 10 mg tablet 10 mg PO DAILY RF: 0 Multivitamin tablet 1 tab PO AM Qty: 0 RF: 0 Calcium Carbonate (Tums) 500 MG CHEWABLE TAB 2 tab PO DAILY Qty: 0 RF: 0 Cetirizine (Zyrtec) 10 MG tablet 10 mg PO DAILY Qty: 0 RF: 0 ALBUTEROL SULF (PROVENTIL 0.083% 2.5MG/3ML) 2.5 MG/3 ML NEBULIZR-SOLN 2.5 mg Inhalation Q6H PRN (Reason: SOB/Wheezing) Qty: 0 RF: 0 Fluticasone Propionate (Nasal) (Flonase Allergy Relief) 50 MCG/ACT SPR 2 spry PATO DAILY Qty: 0 RF: 0 Sertraline (Zoloft) 50 MG tablet 100 mg PO HS 30 Days RF: 1 Referrals Referrals: Andriy Johnson DO [Primary Care Provider] -
[2021-12-26 14:41] LABS: Appearance Urine Clear (Clear); Bacteria Urine Automated Negative (Negative); Bilirubin Urine Negative (Negative); Blood Urine Negative (Negative); Color Urine Yellow; Glucose Urine UA Negative (Negative); Ketones Urine Negative (Negative); Leukocyte Esterase Urine 2+ (Negative); Nitrite Urine Negative (Negative); Protein Urine Negative (Negative); RBC Urine Automated 0-4 /hpf (0-4); Specific Gravity Urine 1.004 (1.000-1.030); Urobilinogen Urine Negative (Negative); pH Urine 5.5 (4.5-7.5)
[2021-12-26 14:51] LABS: Basophils # (auto) 0.02 K/uL (0-0.2); Basophils % (auto) 0.3 %; Eosinophils # (auto) 0.03 K/uL (0-0.5); Eosinophils % (auto) 0.5 %; Hematocrit (blood only) 41.6 % (37-47); Hemoglobin 14.2 g/dL (12.0-16.0); Immature Granulocytes # (auto) 0.01 K/uL (0.00-0.02); Immature Granulocytes % (auto) 0.2 %; Lymphocytes # (auto) 1.74 K/uL (1.2-3.4); Lymphocytes % (auto) 27.7 %; Mean Corpuscular Hemoglobin 28.4 pg (25-34); Mean Corpuscular Hgb Conc 34.1 g/dL (32-36); Mean Corpuscular Volume 83.2 fL (80-100); Mean Platelet Volume 9.7 fL (7.4-10.4); Monocytes # (auto) 0.48 K/uL (0.11-0.59); Monocytes % (auto) 7.6 %; Neutrophils # (auto) 4.01 K/uL (1.4-6.5); Neutrophils % (auto) 63.7 %; Platelet Count 200 K/uL (130-400); RDW Coefficient of Variation 13.8 % (11.5-14.5); RDW Standard Deviation 41.8 fL (36.4-46.3); White Blood Count 6.29 K/uL (4.8-10.8)
[2021-12-26 15:12] LABS: Pregnancy Test, Urine Negative (Negative)
[2021-12-26 15:16] LABS: Albumin Globulin Ratio 1.5 (0.9-2); Albumin Level 4.2 gm/dl (3.4-5.0); Bilirubin,Total 0.8 mg/dl (0.2-1.0); Calcium 9.3 mg/dl (8.5-10.1); Creatinine Clr Calc Pharmacy 71.4 ml/min; Est GFR (African American) 89.5 ml/min; Est GFR (Non-African American) 77.2 ml/min; Globulin 2.8 gm/dl (2.5-4.0); Potassium 3.9 mmol/L (3.5-5.1)
[2021-12-26 15:18] LABS: Amphetamines+Metham, Urine Neg (Neg); Barbiturates, Urine Neg (Neg); Benzodiazepine, Urine Neg (Neg); Cocaine, Urine Neg (Neg); MDMA (Ecstacy), Urine Neg (Neg); Methadone, Urine Neg (Neg); Opiate, Urine Neg (Neg); Phencyclidine, Urine Neg (Neg)
[2021-12-26 15:20] LABS: Acetaminophen < 3 ug/ml (10-30); Salicylate < 3.0 mg/dl (3.0-30)
--- NOTE | 2021-12-26 16:49 | Emergency Department Note ---
ED Visit Note I assumed care at the change of shift. The patient was awaiting a psychiatric voluntary bed. She had presented with suicidal ideation with a plan to run her car off the road. Patient was seen by psychiatry case management, the patient will be admitted to our hospital's psychiatric floor, 3 S. She is being admitted voluntarily. She has been cooperative during her stay here in the ED. .
[2021-12-26] MEDS ORDERED: BISMUTH SUBSALICYLATE LIQD 236 ML PO PRN (19:40)
[2021-12-26] MEDS ORDERED: ALUMINUM/MAGNESIUM SUSP 30 ML UDC PO PRN (19:40)
[2021-12-26] MEDS ORDERED: SODIUM CHLORIDE 0.65% NA SOLN 45 ML (OCEAN) PRN (19:40)
[2021-12-26] MEDS ORDERED: hydrOXYzine HCl 25 MG TAB PO PRN (19:40)
[2021-12-26] MEDS ORDERED: MAGNESIUM HYDROXIDE SUSP 30 ML UDC PO PRN (19:40)
[2021-12-26] MEDS ORDERED: SERTRALINE HCL 100 MG TABLET PO SCH ×2 (21:00→22:00)
[2021-12-26 21:38] VITALS: O2SAT 96
[2021-12-27] MEDS: hydrOXYzine HCl 25 MG TAB PO PRN ×2 (00:19→02:04)
[2021-12-27] MEDS ORDERED: FLUTICASONE PROPIONATE NA SPR 16 GM BTL SCH (10:15)
[2021-12-27] MEDS: MONTELUKAST SODIUM 10 MG TABLET PO SCH (10:29)
[2021-12-27] MEDS: FLUTICASONE PROPIONATE NA SPR 16 GM BTL NAE SCH (10:30)
[2021-12-27] MEDS: MULTIVITAMIN TAB PO SCH (10:30)
[2021-12-27] MEDS: SERTRALINE HCL 100 MG TABLET PO SCH ×2 (10:30→22:03)
[2021-12-27] MEDS: CETIRIZINE HCL 10 MG TABLET PO SCH (10:38)
--- NOTE | 2021-12-27 10:53 | History & Physical ---
Date of Service December 27, 2021 Impression / Recommendations Wilbur Murphy is a 46-year-old female admit with worsening depression and suicidal thoughts. She has struggled with recurrent anxiety/depression following treatment for breast CA ([id number]) with acute worsening due to stress of work, family demands, and caring for affairs of aging parents. (1) Major depressive disorder with current active episode: The patient was admitted to the [facility] ([facility] inpatient mental health unit) on q15 min checks (behavioral with suicide precautions) for safety. The patient will participate in group, recreational, and milieu therapies and will be offered additional individual and family sessions as clinically appropriate. Risks/benefits/alternatives reviewed re: antidepressants and sleep medication. She agreed to increase Zoloft to 200 mg daily to complete the trial and will try Vistaril again tonight. Repeat UA with C&S as appropriate. Inventory Assets Strengths: intelligent, family focussed Needs: plan for work, increase in outpatient services. Risk Factors Assessment : Yes Mental Health Diagnoses: Yes Previous Attempt: No Family History of Suicide: No Protective Factors Assessment : Yes Responsible for Young Children: Yes (teens) Employed: Yes ([employer]) Stable Relationships: Yes (close friend) Psychiatric History Identifying Data DEE DEE MENDIETA is a 46-year-old F who currently lives in [facility] with family, has no prior inpatient hospitalizations or suicide attempts, and was admitted on 12/26/21 18:41 on a 201 voluntary commitment for SI with thoughts of crashing ca r. Chief Complaint "There's just so much going on lately so I've had a hard time managing, like I can barely get to work". History of Present Illness Reports a history of anxiety and non-specific brief periods of depression since her 20's, managed intermittently by PCP, presents with several months worsening of mood. Vegetative symptoms have worsened in past 2 weeks and accompanied at times with fleeting thoughts about wrecking her car. She "finally" shared the thoughts with her yesterday and he notified crisis. She came to the ED after an in home crisis assessment. She typically has seasonal affective symptoms but this year much worse as also dealing with parents' declining health. Parents live in the [facility] and she is an only child so had to manage alot when they were in an out of the hospital. She was struck with how quickly they declined and is particularly upset that mother seems confused and asks inappropriate questions, like if the kids and still live with her, etc. Although they are in assisted living at this time there is still "alot to do" like communicating with their doctors, managing POA for different rice, and she's researching facilities to move them closer to here as worries the current situation (location, finances) are not sustainable. She reports that the stress has had a negative impact on her marriage and relationship with her 2 children (boys aged 15 and 16) are involved in a lot of activities and were previously homeschooled (until this year) by their father who is a stay at home dad. As the primary breadwinner, she worries about "losing it" and not being able to work/support the family. She has used alot of her PTO for parents appointments and now in past 2 weeks only able to attend work 2 days a week. She has a feeling of dread in the am, is not sleeping well, concentration is poor, has an upset feeling in her stomach and can't eat as well. She reports that her Zoloft was increase to 150 mg about 6 weeks ago with little interim benefit but in general reports SSRIs have been helpful and well tolerated. She states she is postmenopausal but still notes some cyclical changes in that her mood tends to worsen once a month. She did look up side effects of Singular but has taken it for many years whereas change in mood is more recent and highly correlated with psychosocial stressors. Past Psychiatric History Current Psychiatric Diagnosis: MDD Outpatient Services: 2 sessions of telehealth therapy with [facility] Previous Psych Admissions: none History of Previous Suicide Attempt: No Past Medication Trials: Paxil in 's which only stopped as wanted to get , lorazepam prn sleep, Zoloft started a few years ago after completed breast CA treatment (which was sucessful but "I just fell apart') Allergies Allergy/AdvReac Type Severity Reaction Status Date / Time Cephalosporins Allergy Unknown KEFLEX Verified 04/26/19 14:31 Home Medications Medication Instructions Recorded Confirmed Type Multivitamin 1 tab PO AM #0 02/28/09 12/26/21 History montelukast 10 mg tablet 10 mg PO DAILY tab 04/26/19 12/26/21 History (Singulair) cetirizine 10 mg tablet (Zyrtec) 10 mg PO DAILY 12/27/21 12/27/21 History fluticasone propionate 50 2 spray INTRANASAL DAILY 12/27/21 12/27/21 History mcg/actuation nasal spray,suspension sertraline 100 mg tablet 100 mg PO HS 12/27/21 12/27/21 History sertraline 50 mg tablet 50 mg PO DAILY 12/27/21 12/27/21 History Family History Family History of: None Alcohol History Hx of Alcohol Use Over the Past 12 Months: No AUDIT Total Score: 0 Smoking Use Have You Smoked or Used Tobacco Products in the Last 30 Days: No Smoking Status: Never smoker Substance History Hx of Prescription Med Misuse Over the Past 12 Months: No Hx of Over the Counter Med Misuse Over the Past 12 Months: No Hx of Inhalent Misuse Over the Past 12 Months: No Hx of Organic Substance Use Over the Past 12 Months: No Hx of Illegal Substances/Street Drug Use Over Past 12 Months: No Problems as a Result of Past Substance Use: None Identified Personal History Living Arrangements: Home Highest Grade Completed: College 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[employer]) Marital Status: Number Of Children: 2 Beliefs That Will Affect Care: Jew Current Legal Problems: No Hx Legal Problems: No Hx Traumatic Life Events: No Patient History Medical History (Updated 12/27/21 @ 11:03 by Triny Corea MD) Breast cancer (12/06/14) "Left breast mass detected on physical examination Status post mammography and ultrasound followed by biopsy Biopsy 12/06/2014 2:00 biopsy invasive carcinoma grade 2 3:00 biopsy invasive carcinoma grade 2 Status post bilateral mastectomies with left sentinel lymph node biopsy and axillary dissection right sentinel lymph node biopsy 02/25/2015 Right breast benign 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 Two separate primaries 3.0 and 1.5 cm Pathologic stage [id number] stage IIB Oncotype DX score of 32 Status post systemic chemotherapy Taxotere and Cytoxan for 4 cycles Status post completion of radiation therapy 09/25/2015 received 6120 cGy Plan treatment with tamoxifen Status post genetic testing of BRCA1 and BRCA2 negative" On 10/24/15 16:20 Diana Flores wrote "Left breast mass detected on physical examination Status post mammography and ultrasound followed by biopsy Biopsy 12/06/2014 2:00 biopsy invasive carcinoma grade 2 3:00 biopsy invasive carcinoma grade 2 Status post bilateral mastectomies with left sentinel lymph node biopsy and axillary dissection right sentinel lymph node biopsy 02/25/2015 Right breast benign 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 Two separate primaries 3.0 and 1.5 cm Pathologic stage [id number] stage IIB Oncotype DX score of 32 Status post systemic chemotherapy Taxotere and Cytoxan for 4 cycles Status post completion of radiation therapy 09/25/2015 received 6120 cGy Plan treatment with tamoxifen Status post genetic testing of BRCA1 and BRCA2 negative" On 09/30/15 18:37 Diana Flores wrote "Left breast mass detected on physical examination Status post mammography and ultrasound followed by biopsy Biopsy 12/06/2014 2:00 biopsy invasive carcinoma grade 2 3:00 biopsy invasive carcinoma grade 2 Status post bilateral mastectomies with left sentinel lymph node biopsy and axillary dissection right sentinel lymph node biopsy 02/25/2015 Right breast benign 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 Two separate primaries 3.0 and 1.5 cm Pathologic stage [id number] stage IIB Oncotype DX score of 32 Status post systemic chemotherapy Taxotere and Cytoxan for 4 cycles Status post completion of radiation therapy 09/25/2015 received 6120 cGy Plan treatment with tamoxifen" On 09/30/15 16:44 Diana Flores wrote "Left breast mass detected on physical examination Status post mammography and ultrasound followed by biopsy Biopsy 12/06/2014 2:00 biopsy invasive carcinoma grade 2 3:00 biopsy invasive carcinoma grade 2 Status post bilateral mastectomies with left sentinel lymph node biopsy and axillary dissection right sentinel lymph node biopsy 02/25/2015 Right breast benign 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 Pathologic stage [id number] stage IIB Oncotype DX score of 32 Status post systemic chemotherapy Taxotere and Cytoxan for 4 cycles Status post completion of radiation therapy 09/25/2015 received 6120 cGy Plan treatment with tamoxifen" On 09/30/15 16:44 Diana Flores wrote "Left breast mass detected on physical examination Status post mammography and ultrasound followed by biopsy Biopsy 12/06/2014 2:00 biopsy invasive carcinoma grade 2 3:00 biopsy invasive carcinoma grade 2 Status post bilateral mastectomies with left sentinel lymph node biopsy and axillary dissection right sentinel lymph node biopsy 02/25/2015 Right breast benign 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 Pathologic stage [id number] stage IIB Oncotype DX score of 32 Status post systemic chemotherapy Taxotere and Cytoxan for 4 cycles Status post completion of radiation therapy 09/25/2015 received 6120 cGy Plan treatment with tamoxifen" On 09/30/15 16:19 Diana Flores wrote "Left breast mass detected on physical examination Status post mammography and ultrasound followed by biopsy Biopsy 12/06/2014 2:00 biopsy invasive carcinoma grade 2 3:00 biopsy invasive carcinoma grade 2 Status post bilateral mastectomies with left sentinel lymph node biopsy and axillary dissection right sentinel lymph node biopsy 02/25/2015 Right breast benign 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 Pathologic stage [id number] stage IIB Oncotype DX score of 32 Status post systemic chemotherapy Taxotere and Cytoxan for 4 cycles Status post completion of radiation therapy 09/25/2015 received 6120 cGy Plan treatment with tamoxifen" On 09/30/15 16:19 Diana Flores wrote "Left breast mass detected on physical examination Status post mammography and ultrasound followed by biopsy Biopsy 12/06/2014 2:00 biopsy invasive carcinoma grade 2 3:00 biopsy invasive carcinoma grade 2 Status post bilateral mastectomies with left sentinel lymph node biopsy and axillary dissection right sentinel lymph node biopsy 02/25/2015 Right breast benign 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 Pathologic stage [id number] stage IIB Oncotype DX score of 32 Status post systemic chemotherapy Taxotere and Cytoxan for 4 cycles Status post completion of radiation therapy 09/25/2015 received 6120 cGy Plan treatment with tamoxifen" On 07/16/15 16:02 Diana Flores wrote "Left breast mass detected on physical examination Status post mammography and ultrasound followed by biopsy Biopsy 12/06/2014 2:00 biopsy invasive carcinoma grade 2 3:00 biopsy invasive carcinoma grade 2 Status post bilateral mastectomies with left sentinel lymph node biopsy and axillary dissection right sentinel lymph node biopsy 02/25/2015 Right breast benign 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 Physical Exam Psychiatric: Orientation: alert and oriented x 3 Apperance: appropriately dressed and appropriately groomed Eye Contact: good eye contact Motor Behavior: no abnormal motor movements Speech: normal rate/rhythm/volume of speech Affect: + depressed affect Mood: + depressed mood Thought Process: goal directed thought process Thought Content: reality based without delusions Suicidal Thoughts: denies suicidal thoughts (in hospital, but very overwhelmed, unable to safety plan.) Homicidal Thoughts: denies homicidal thoughts Hallucinations: no auditory hallucinations and no visual hallucinations Cognition: attention grossly intact and language grossly intact Estimated Intelligence: consistent with education level Insight: + limited insight Judgement: + limited judgement Vital Signs (Past 24 Hours): Last Vital Signs Temp 36.8 C 12/27/21 06:43 Pulse 87 12/27/21 06:43 Resp 16 12/27/21 06:43 BP 117/80 12/27/21 06:43 Pulse Ox 96 12/26/21 21:07 Exam Statement: A physical exam was performed in the ED by Dr. Mascorro for the purposes of medical clearance. I accept that physical as correct and adequate for the purposes of the inpatient physical exam. Results & Data ([facility]) Laboratory Results Laboratory Results - last 24 hr 12/26/21 12/26/21 12/26/21 13:00 13:00 14:24 WBC RBC Hgb Hct MCV MCH MCHC RDW Std Deviation RDW Coeff of Margo Plt Count MPV Immature Gran % (Auto) Neut % (Auto) Lymph % (Auto) Jackson % (Auto) Eos % (Auto) Baso % (Auto) Neut # (Auto) Lymph # (Auto) Jackson # (Auto) Eos # (Auto) Baso # (Auto) Immature Gran # (Auto) Sodium Potassium Chloride Carbon Dioxide Anion Gap BUN Creatinine Est Cr Clr Drug Dosing Est GFR ( Amer) Est GFR (Non-Af Amer) BUN/Creatinine Ratio Glucose Calcium Total Bilirubin AST ALT Alkaline Phosphatase Total Protein Albumin Globulin Albumin/Globulin Ratio TSH Urine Color Yellow Urine Appearance Clear Urine pH 5.5 Ur Specific [place] 1.004 Urine Protein Negative Urine Glucose (UA) Negative Urine Ketones Negative Urine Blood Negative Urine Nitrite Negative Urine Bilirubin Negative Urine Urobilinogen Negative Ur Leukocyte Esterase 2+ H Urine WBC (Auto) 5-10 H Urine RBC (Auto) 0-4 U Hyaline Cast (Auto) 1-5 U Epithel Cells (Auto) 10-20 H Urine Bacteria (Auto) Negative Urine Test Salicylates Urine Opiates Screen Neg Ur Methadone, Qual Neg Acetaminophen Urine Barbiturates Neg Ur Phencyclidine (PCP) Neg U Amphetamin/Meth Scrn Neg MDMA (Ecstasy) Screen Neg U Benzodiazepines Scrn Neg Ur Cocaine Metabolite Neg U Marijuana (THC) Screen Neg Ethyl Alcohol mg/dL SARS-CoV-2, RNA, NAAT NEGATIVE 12/26/21 12/26/21 12/26/21 14:36 14:36 14:36 WBC 6.29 RBC 5.00 Hgb 14.2 Hct 41.6 MCV 83.2 MCH 28.4 MCHC 34.1 RDW Std Deviation 41.8 RDW Coeff of Margo 13.8 Plt Count 200 MPV 9.7 Immature Gran % (Auto) 0.2 Neut % (Auto) 63.7 Lymph % (Auto) 27.7 Jackson % (Auto) 7.6 Eos % (Auto) 0.5 Baso % (Auto) 0.3 Neut # (Auto) 4.01 Lymph # (Auto) 1.74 Jackson # (Auto) 0.48 Eos # (Auto) 0.03 Baso # (Auto) 0.02 Immature Gran # (Auto) 0.01 Sodium 137 Potassium 3.9 Chloride 101 Carbon Dioxide 29 Anion Gap 7 BUN 16 Creatinine 0.89 Est Cr Clr Drug Dosing 71.4 Est GFR ( Amer) 89.5 Est GFR (Non-Af Amer) 77.2 BUN/Creatinine Ratio 18.0 Glucose 78 Calcium 9.3 Total Bilirubin 0.8 AST 17 ALT 16 Alkaline Phosphatase 74 Total Protein 7.0 Albumin 4.2 Globulin 2.8 Albumin/Globulin Ratio 1.5 TSH 3.655 Urine Color Urine Appearance Urine pH Ur Specific [place] Urine Protein Urine Glucose (UA) Urine Ketones Urine Blood Urine Nitrite Urine Bilirubin Urine Urobilinogen Ur Leukocyte Esterase Urine WBC (Auto) Urine RBC (Auto) U Hyaline Cast (Auto) U Epithel Cells (Auto) Urine Bacteria (Auto) Urine Test Salicylates Urine Opiates Screen Ur Methadone, Qual Acetaminophen Urine Barbiturates Ur Phencyclidine (PCP) U Amphetamin/Meth Scrn MDMA (Ecstasy) Screen U Benzodiazepines Scrn Ur Cocaine Metabolite U Marijuana (THC) Screen Ethyl Alcohol mg/dL SARS-CoV-2, RNA, NAAT 12/26/21 12/26/21 12/26/21 14:36 14:36 14:44 WBC RBC Hgb Hct MCV MCH MCHC RDW Std Deviation RDW Coeff of Margo Plt Count MPV Immature Gran % (Auto) Neut % (Auto) Lymph % (Auto) Jackson % (Auto) Eos % (Auto) Baso % (Auto) Neut # (Auto) Lymph # (Auto) Jackson # (Auto) Eos # (Auto) Baso # (Auto) Immature Gran # (Auto) Sodium Potassium Chloride Carbon Dioxide Anion Gap BUN Creatinine Est Cr Clr Drug Dosing Est GFR ( Amer) Est GFR (Non-Af Amer) BUN/Creatinine Ratio Glucose Calcium Total Bilirubin AST ALT Alkaline Phosphatase Total Protein Albumin Globulin Albumin/Globulin Ratio TSH Urine Color Urine Appearance Urine pH Ur Specific [place] Urine Protein Urine Glucose (UA) Urine Ketones Urine Blood Urine Nitrite Urine Bilirubin Urine Urobilinogen Ur Leukocyte Esterase Urine WBC (Auto) Urine RBC (Auto) U Hyaline Cast (Auto) U Epithel Cells (Auto) Urine Bacteria (Auto) Urine Test Negative Salicylates < 3.0 L Urine Opiates Screen Ur Methadone, Qual Acetaminophen < 3 L Urine Barbiturates Ur Phencyclidine (PCP) U Amphetamin/Meth Scrn MDMA (Ecstasy) Screen U Benzodiazepines Scrn Ur Cocaine Metabolite U Marijuana (THC) Screen Ethyl Alcohol mg/dL < 10.0 SARS-CoV-2, RNA, NAAT Current Inpatient Medications Current Inpatient Medications: Current Inpatient Medications Acetaminophen (Acetaminophen 325 Mg Tab) 650 mg PO Q4H PRN PRN Reason: Headache or Minor Fever Stop: 01/25/22 19:39 Al Hydrox/Mg Hydrox/Simethicone (Aluminum/Magnesium Susp 30 Ml Udc) 30 ml PO Q4H PRN PRN Reason: GI Upset Stop: 01/25/22 19:39 Bismuth Subsalicylate (Bismuth Subsalicylate Liqd 236 Ml) 15 ml PO PRN PRN PRN Reason: Loose Stool Stop: 01/25/22 19:39 Cetirizine HCl (Cetirizine Hcl 10 Mg Tablet) 10 mg PO QAM [facility] Stop: 01/26/22 10:14 Last Admin: 12/27/21 10:38 Dose: 10 mg Documented by: Fluticasone Propionate (Fluticasone Propionate Na Spr 16 Gm Btl) 2 sprays PATO DAILY [facility] Stop: 01/26/22 10:29 Last Admin: 12/27/21 10:30 Dose: 2 sprays Documented by: Hydroxyzine HCl (Hydroxyzine Hcl 25 Mg Tab) 50 mg PO HSZ PRN PRN Reason: Insomnia Stop: 01/25/22 19:39 Last Admin: 12/27/21 02:04 Dose: 50 mg Documented by: Hydroxyzine HCl (Hydroxyzine Hcl 25 Mg Tab) 25 mg PO Q4H PRN PRN Reason: Anxiety Stop: 01/25/22 19:39 Hydroxyzine HCl (Hydroxyzine Hcl 25 Mg Tab) 50 mg PO HS [facility] Stop: 01/26/22 21:59 Magnesium Hydroxide (Magnesium Hydroxide Susp 30 Ml Udc) 30 ml PO DAILY PRN PRN Reason: Constipation Stop: 01/25/22 19:39 Montelukast Sodium (Montelukast Sodium 10 Mg Tablet) 10 mg PO DAILY [facility] Stop: 01/26/22 10:14 Last Admin: 12/27/21 10:29 Dose: 10 mg Documented by: Multivitamins (Multivitamin Tab) 1 tab PO QAM [facility] Stop: 01/26/22 10:14 Last Admin: 12/27/21 10:30 Dose: 1 tab Documented by: Sertraline HCl (Sertraline Hcl 100 Mg Tablet) 100 mg PO BID [facility] Stop: 01/26/22 10:14 Last Admin: 12/27/21 10:30 Dose: 100 mg Documented by: Sodium Chloride (Sodium Chloride 0.65% Na Soln 45 Ml ([place])) 1 - 2 sprays NA PRN PRN PRN Reason: Nasal Dryness/Congestion Stop: 01/25/22 19:39
[2021-12-27 16:23] LABS: Appearance Urine Clear (Clear); Bacteria Urine Automated Negative (Negative); Bilirubin Urine Negative (Negative); Blood Urine Trace (Negative); Color Urine Yellow; Epithelial Cell Urine Auto 20-30 /lpf (0-5); Glucose Urine UA Negative (Negative); Ketones Urine Trace (Negative); Leukocyte Esterase Urine 3+ (Negative); Nitrite Urine Negative (Negative); Protein Urine Negative (Negative); RBC Urine Automated 0-4 /hpf (0-4); Specific Gravity Urine 1.021 (1.000-1.030); Urobilinogen Urine Negative (Negative); WBC Urine Automated >30 /hpf (0-5)
[2021-12-27] MEDS ORDERED: hydrOXYzine HCl 25 MG TAB PO SCH (22:00)
[2021-12-28] MEDS: CETIRIZINE HCL 10 MG TABLET PO SCH (08:35)
[2021-12-28] MEDS: MULTIVITAMIN TAB PO SCH (08:35)
[2021-12-28] MEDS: MONTELUKAST SODIUM 10 MG TABLET PO SCH (08:35)
[2021-12-28] MEDS: SERTRALINE HCL 100 MG TABLET PO SCH ×2 (08:35→22:16)
[2021-12-28] MEDS: FLUTICASONE PROPIONATE NA SPR 16 GM BTL NAE SCH (08:36)
--- NOTE | 2021-12-28 13:26 | Psychiatric Progress Note ---
Date of Service December 28, 2021 Impression / Recommendations Wilbur Murphy is a 46-year-old female admit with worsening depression and suicidal thoughts. She has struggled with recurrent anxiety/depression following treatment for breast CA ([id number]) with acute worsening due to stress of work, family demands, and caring for affairs of aging parents. 12/28/21--unable to safety plan outside of hospital, very anxious and sleep remains disrupted. Continued inpatient hospitalization is medically necessary for ongoing monitoring and safety. (1) Major depressive disorder with current active episode: 12/28/21: d/c Vistaril hs in favor of a trial of trazodone 50-100 mg po qhs. Risks/benefits/alternatives reviewed. Family session today. 12/27/21: The patient was admitted to the [facility] ([facility] mental health unit) on q15 min checks (behavioral with suicide precautions) for safety. The patient will participate in group, recreational, and milieu therapies and will be offered additional individual and family sessions as clinically appropriate. Risks/benefits/alternatives reviewed re: antidepressants and sleep medication. She agreed to increase Zoloft to 200 mg daily to complete the trial and will try Vistaril again tonight. Repeat UA with C&S as appropriate. Inventory Assets Strengths: intelligent, family focussed Needs: plan for work, increase in outpatient services. Risk Factors Assessment : Yes Do You Have Access To A Gun?: No Mental Health Diagnoses: Yes Previous Attempt: No Family History of Suicide: No Protective Factors Assessment : Yes Responsible for Young Children: Yes (teens) Employed: Yes ([employer]) Stable Relationships: Yes (close friend) Interval History Identifying Information DEE DEE MENDIETA is a 46-year-old F who currently lives in [facility] with family, has no prior inpatient hospitalizations or suicide attempts, and was admitted on 12/26/21 18:41 on a 201 voluntary commitment for SI with thoughts of crashing car. Chief Complaint "I feel better here but really don't understand how I'd manage with all of my usual stressors" Review of Systems Sleep Information Total Hours of Sleep: 5 Meal Information Percent Meal Consumed - Breakfast: 100 Percent Meal Consumed - Lunch: 100 Percent Meal Consumed - Dinner: 90 Subjective Subjective Patient was seen & assessed and interval progress reviewed with nursing and social work. ONgoing DFA last pm but also expected Vistaril to "knock me out" right away. has meeting with and friend today and is working on plan for work/longer term short term disability and/or FMLA if needed. Physical Exam Psychiatric Orientation: alert and oriented x 3 Apperance: appropriately dressed and appropriately groomed Eye Contact: good eye contact Motor Behavior: no abnormal motor movements Speech: normal rate/rhythm/volume of speech Affect: + anxious affect Mood: + depressed mood and + anxious mood Thought Process: goal directed thought process Thought Content: reality based without delusions Suicidal Thoughts: denies suicidal thoughts Homicidal Thoughts: denies homicidal thoughts Hallucinations: no auditory hallucinations and no visual hallucinations Cognition: attention grossly intact and language grossly intact Estimated Intelligence: consistent with education level Insight: + limited insight Judgement: + limited judgement Vital Signs (Past 24 Hours) Last Vital Signs Temp 36.9 C 12/28/21 06:41 Pulse 76 12/28/21 06:41 Resp 16 12/28/21 06:41 BP 123/80 12/28/21 06:41 Pulse Ox 96 12/26/21 21:07 Results & Data ([facility]) Laboratory Results Laboratory Results - last 24 hr 12/27/21 16:00 Urine Color Yellow Urine Appearance Clear Urine pH 5.0 Ur Specific [place] 1.021 Urine Protein Negative Urine Glucose (UA) Negative Urine Ketones Trace H Urine Blood Trace H Urine Nitrite Negative Urine Bilirubin Negative Urine Urobilinogen Negative Ur Leukocyte Esterase 3+ H Urine WBC (Auto) >30 H Urine RBC (Auto) 0-4 U Hyaline Cast (Auto) 1-5 U Epithel Cells (Auto) 20-30 H Urine Bacteria (Auto) Negative Current Inpatient Medications Current Inpatient Medications: Current Inpatient Medications Acetaminophen (Acetaminophen 325 Mg Tab) 650 mg PO Q4H PRN PRN Reason: Headache or Minor Fever Stop: 01/25/22 19:39 Al Hydrox/Mg Hydrox/Simethicone (Aluminum/Magnesium Susp 30 Ml Udc) 30 ml PO Q4H PRN PRN Reason: GI Upset Stop: 01/25/22 19:39 Bismuth Subsalicylate (Bismuth Subsalicylate Liqd 236 Ml) 15 ml PO PRN PRN PRN Reason: Loose Stool Stop: 01/25/22 19:39 Cetirizine HCl (Cetirizine Hcl 10 Mg Tablet) 10 mg PO QAM AVELINO Stop: 01/26/22 10:14 Last Admin: 12/28/21 08:35 Dose: 10 mg Documented by: Fluticasone Propionate (Fluticasone Propionate Na Spr 16 Gm Btl) 2 sprays PATO DAILY AVELINO Stop: 01/26/22 10:29 Last Admin: 12/28/21 08:36 Dose: 2 sprays Documented by: Hydroxyzine HCl (Hydroxyzine Hcl 25 Mg Tab) 50 mg PO HSZ PRN PRN Reason: Insomnia Stop: 01/25/22 19:39 Last Admin: 12/27/21 02:04 Dose: 50 mg Documented by: Hydroxyzine HCl (Hydroxyzine Hcl 25 Mg Tab) 25 mg PO Q4H PRN PRN Reason: Anxiety Stop: 01/25/22 19:39 Hydroxyzine HCl (Hydroxyzine Hcl 25 Mg Tab) 50 mg PO HS AVELINO Stop: 01/26/22 21:59 Last Admin: 12/27/21 22:03 Dose: 50 mg Documented by: Magnesium Hydroxide (Magnesium Hydroxide Susp 30 Ml Udc) 30 ml PO DAILY PRN PRN Reason: Constipation Stop: 01/25/22 19:39 Montelukast Sodium (Montelukast Sodium 10 Mg Tablet) 10 mg PO DAILY AVELINO Stop: 01/26/22 10:14 Last Admin: 12/28/21 08:35 Dose: 10 mg Documented by: Multivitamins (Multivitamin Tab) 1 tab PO QAM AVELINO Stop: 01/26/22 10:14 Last Admin: 12/28/21 08:35 Dose: 1 tab Documented by: Sertraline HCl (Sertraline Hcl 100 Mg Tablet) 100 mg PO BID AVELINO Stop: 01/26/22 10:14 Last Admin: 12/28/21 08:35 Dose: 100 mg Documented by: Sodium Chloride (Sodium Chloride 0.65% Na Soln 45 Ml ([place])) 1 - 2 sprays NA PRN PRN PRN Reason: Nasal Dryness/Congestion Stop: 01/25/22 19:39 Mental Health & Subst Abuse Tx Therapist Name of Therapist: priya
[2021-12-28] MEDS ORDERED: traZODone HCL 50 MG TAB PO PRN (13:28)
[2021-12-28] MEDS: ACETAMINOPHEN 325 MG TAB PO PRN (18:44)
[2021-12-28] MEDS ORDERED: traZODone HCL 50 MG TAB PO SCH (22:00)
[2021-12-29] MEDS: SERTRALINE HCL 100 MG TABLET PO SCH ×2 (08:35→17:21)
[2021-12-29] MEDS: MULTIVITAMIN TAB PO SCH (08:35)
[2021-12-29] MEDS: MONTELUKAST SODIUM 10 MG TABLET PO SCH (08:35)
[2021-12-29] MEDS: CETIRIZINE HCL 10 MG TABLET PO SCH (08:35)
[2021-12-29] MEDS: FLUTICASONE PROPIONATE NA SPR 16 GM BTL NAE SCH (08:36)
--- NOTE | 2021-12-29 12:57 | Psychiatric Progress Note ---
Date of Service December 29, 2021 Impression / Recommendations Wilbur Murphy is a 46-year-old female admit with worsening depression and suicidal thoughts. She has struggled with recurrent anxiety/depression following treatment for breast CA ([id number]) with acute worsening due to stress of work, family demands, and caring for affairs of aging parents. 12/29/21--improving, some sleep issues (1) Major depressive disorder with current active episode: 12/29/21: trazodone 100 mg this hs and shift pm Zoloft to evening meal. Safety planning. Transition plan for work. 12/28/21: d/c Vistaril hs in favor of a trial of trazodone 50-100 mg po qhs. Risks/benefits/alternatives reviewed. Family session today. 12/27/21: The patient was admitted to the [facility] ([facility] mental health unit) on q15 min checks (behavioral with suicide precautions) for safety. The patient will participate in group, recreational, and milieu therapies and will be offered additional individual and family sessions as clinically appropriate. Risks/benefits/alternatives reviewed re: antidepressants and sleep medication. She agreed to increase Zoloft to 200 mg daily to complete the trial and will try Vistaril again tonight. Repeat UA with C&S as appropriate. Inventory Assets Strengths: intelligent, family focussed Needs: plan for work, increase in outpatient services. Risk Factors Assessment : Yes Do You Have Access To A Gun?: No Mental Health Diagnoses: Yes Previous Attempt: No Family History of Suicide: No Protective Factors Assessment : Yes Responsible for Young Children: Yes (teens) Employed: Yes ([employer]) Stable Relationships: Yes (close friend) Interval History Identifying Information DEE DEE MENDIETA is a 46-year-old F who currently lives in [facility] with family, has no prior inpatient hospitalizations or suicide attempts, and was admitted on 12/26/21 18:41 on a 201 voluntary commitment for SI with thoughts of crashing car. Chief Complaint "i haven't decided about work yet." Review of Systems Sleep Information Total Hours of Sleep: 6 Sleep Comments: Patient came to nursing station at 2311 for Trazodone. Paitent was able to sleep after. Meal Information Percent Meal Consumed - Breakfast: 75 Percent Meal Consumed - Lunch: 100 Percent Meal Consumed - Dinner: 100 Subjective Subjective Patient was seen & assessed and interval progress reviewed with treatment team. Patient motivated to use Calm luna at home. Had family meeting with friend and , he is not particularly supportive per SW but is helping with essentials and willing to even sleep in another room if helps her settle in at night. She states still some difficulty falling asleep here in that legs felt a bit restless last night, states at home usually takes Zoloft with evening meal. Physical Exam Psychiatric Orientation: alert and oriented x 3 Apperance: appropriately dressed and appropriately groomed Eye Contact: good eye contact Motor Behavior: no abnormal motor movements Speech: normal rate/rhythm/volume of speech Affect: + anxious affect Mood: + anxious mood Thought Process: goal directed thought process Thought Content: reality based without delusions Suicidal Thoughts: denies suicidal thoughts Homicidal Thoughts: denies homicidal thoughts Hallucinations: no auditory hallucinations and no visual hallucinations Cognition: attention grossly intact and language grossly intact Estimated Intelligence: consistent with education level Vital Signs (Past 24 Hours) Last Vital Signs Temp 36.5 C 12/29/21 06:47 Pulse 65 12/29/21 06:48 Resp 18 12/29/21 06:47 BP 117/80 12/29/21 06:48 Pulse Ox 96 12/26/21 21:07 Results & Data ([facility]) Current Inpatient Medications Current Inpatient Medications: Current Inpatient Medications Acetaminophen (Acetaminophen 325 Mg Tab) 650 mg PO Q4H PRN PRN Reason: Headache or Minor Fever Stop: 01/25/22 19:39 Last Admin: 12/28/21 18:44 Dose: 650 mg Documented by: Al Hydrox/Mg Hydrox/Simethicone (Aluminum/Magnesium Susp 30 Ml Udc) 30 ml PO Q4H PRN PRN Reason: GI Upset Stop: 01/25/22 19:39 Bismuth Subsalicylate (Bismuth Subsalicylate Liqd 236 Ml) 15 ml PO PRN PRN PRN Reason: Loose Stool Stop: 01/25/22 19:39 Cetirizine HCl (Cetirizine Hcl 10 Mg Tablet) 10 mg PO QAM AVELINO Stop: 01/26/22 10:14 Last Admin: 12/29/21 08:35 Dose: 10 mg Documented by: Fluticasone Propionate (Fluticasone Propionate Na Spr 16 Gm Btl) 2 sprays PATO DAILY AVELINO Stop: 01/26/22 10:29 Last Admin: 12/29/21 08:36 Dose: 2 sprays Documented by: Hydroxyzine HCl (Hydroxyzine Hcl 25 Mg Tab) 25 mg PO Q4H PRN PRN Reason: Anxiety Stop: 01/25/22 19:39 Magnesium Hydroxide (Magnesium Hydroxide Susp 30 Ml Udc) 30 ml PO DAILY PRN PRN Reason: Constipation Stop: 01/25/22 19:39 Montelukast Sodium (Montelukast Sodium 10 Mg Tablet) 10 mg PO DAILY AVELINO Stop: 01/26/22 10:14 Last Admin: 12/29/21 08:35 Dose: 10 mg Documented by: Multivitamins (Multivitamin Tab) 1 tab PO QAM AVELINO Stop: 01/26/22 10:14 Last Admin: 12/29/21 08:35 Dose: 1 tab Documented by: Sertraline HCl (Sertraline Hcl 100 Mg Tablet) 100 mg PO BID AVELINO Stop: 01/26/22 10:14 Last Admin: 12/29/21 08:35 Dose: 100 mg Documented by: Sodium Chloride (Sodium Chloride 0.65% Na Soln 45 Ml ([place])) 1 - 2 sprays NA PRN PRN PRN Reason: Nasal Dryness/Congestion Stop: 01/25/22 19:39 Trazodone HCl (Trazodone Hcl 50 Mg Tab) 50 mg PO HS AVELINO Stop: 01/27/22 21:59 Last Admin: 12/28/21 22:16 Dose: 50 mg Documented by: Trazodone HCl (Trazodone Hcl 50 Mg Tab) 50 mg PO HS PRN PRN Reason: Insomnia Stop: 01/27/22 21:59 Last Admin: 12/28/21 23:11 Dose: 50 mg Documented by: Mental Health & Subst Abuse Tx Psychiatrist Name of Psychiatrist: Areli Saul Psychiatrist's Date of Appointment with Psychiatrist: 01/26/22 Time of Appointment with Psychiatrist: 8:30 AM Psychiatric Appointment Comment: [address] [facility] [id number] Therapist Name of Therapist: Angeli Psychiatry Therapist's Date of Therapist Appointment: 12/31/21 Time of Therapist Appointment: 5:20 PM Therapy Appointment Comment: Teletherapy Post Discharge Appointments Primary Care Physician Name Of Family Doctor: Angeli Johnson Provider Appointment Comment: Follow up as needed.
[2021-12-29] MEDS ORDERED: traZODone HCL 100 MG TAB PO SCH (22:00)
[2021-12-30] MEDS: ACETAMINOPHEN 325 MG TAB PO PRN (06:17)
[2021-12-30 06:39] VITALS: BP 112/77; TEMP 98.1
[2021-12-30] MEDS: MULTIVITAMIN TAB PO SCH (08:21)
[2021-12-30] MEDS: CETIRIZINE HCL 10 MG TABLET PO SCH (08:21)
[2021-12-30] MEDS: MONTELUKAST SODIUM 10 MG TABLET PO SCH (08:21)
[2021-12-30] MEDS: SERTRALINE HCL 100 MG TABLET PO SCH ×2 (08:21→17:30)
[2021-12-30] MEDS: FLUTICASONE PROPIONATE NA SPR 16 GM BTL NAE SCH (08:49)
--- NOTE | 2021-12-30 11:10 | Discharge Summary ---
Date of Service December 30, 2021 History of Present Illness Reports a history of anxiety and non-specific brief periods of depression since her 20's, managed intermittently by PCP, presents with several months worsening of mood. Vegetative symptoms have worsened in past 2 weeks and accompanied at times with fleeting thoughts about wrecking her car. She "finally" shared the thoughts with her yesterday and he notified crisis. She came to the ED after an in home crisis assessment. She typically has seasonal affective symptoms but this year much worse as also dealing with parents' declining health. Parents live in the [facility] and she is an only child so had to manage alot when they were in an out of the hospital. She was struck with how quickly they declined and is particularly upset that mother seems confused and asks inappropriate questions, like if the kids and still live with her, etc. Although they are in assisted living at this time there is still "alot to do" like communicating with their doctors, managing POA for different rice, and she's researching facilities to move them closer to here as worries the current situation (location, finances) are not sustainable. She reports that the stress has had a negative impact on her marriage and relationship with her 2 children (boys aged 15 and 16) are involved in a lot of activities and were previously homeschooled (until this year) by their father who is a stay at home dad. As the primary breadwinner, she worries about "losing it" and not being able to work/support the family. She has used alot of her PTO for parents appointments and now in past 2 weeks only able to attend work 2 days a week. She has a feeling of dread in the am, is not sleeping well, concentration is poor, has an upset feeling in her stomach and can't eat as well. She reports that her Zoloft was increase to 150 mg about 6 weeks ago with little interim benefit but in general reports SSRIs have been helpful and well tolerated. She states she is postmenopausal but still notes some cyclical changes in that her mood tends to worsen once a month. She did look up side effects of Singular but has taken it for many years whereas change in mood is more recent and highly correlated with psychosocial stressors. Physical Exam Psychiatric See admission H&P and DOD assessment. Vital Signs (Past 24 Hours) Last Vital Signs Temp 36.7 C 12/30/21 06:37 Pulse 68 12/30/21 06:38 Resp 16 12/30/21 06:37 BP 112/77 12/30/21 06:38 Pulse Ox 96 12/26/21 21:07 Principal Diagnosis major depressive disorder Psychiatric Data See daily stay summary. In short, safety was maintained and the patient was cooperative with care. Medication changes included an increase in Zoloft and they tolerated this well. Trazodone worked better than Vistaril for sleep and the dose was titrated. A family session was held and safety plan was completed prior to discharge. She was an engaged participant in groups and worked through all appropriate therapeutic materials in her workbook, often taking notes. She has family time planned an anticipates returning to work on 01/12/22 on reduced hours for a brief transition. Day of Discharge Assessment Today the patient voices readiness for discharge. They note improvement in mood and deny thoughts to harm self or others. Thoughts remain organized and they are improved from admission. There is no evidence of psychosis. They agree to take mediations as prescribed and keep follow-up appointments. They are stable for discharge to outpatient level of care. Transition of Care Transition Of Care Record: was reviewed with the patient Advance Directives Advance Directives Information Provided: Yes Advance Directives: No Mental Health Advance Directive: No Advance Directives on File: No Living Will: No Power of Colorist Formulator: No Advance Directives Reason:: Declines as Mental Health Visit. Risk Factors Assessment : Yes Do You Have Access To A Gun?: No Mental Health Diagnoses: Yes Previous Attempt: No Family History of Suicide: No Protective Factors Assessment : Yes Responsible for Young Children: Yes (teens) Employed: Yes ([employer]) Stable Relationships: Yes (close friend) Tobacco Cessation at Discharge Tobacco Cessation Medication Prescribed at Discharge: Not Applicable/Non-Smoker Total Time Total Time Spent: Greater Than 30 Minutes Total Time Includes: Examination of the patient, Discharge Planning and Medication Reconciliation Discharge Data Lab Results 12/26/21 12/26/21 12/26/21 13:00 13:00 14:24 WBC RBC Hgb Hct MCV MCH MCHC RDW Std Deviation RDW Coeff of Margo Plt Count MPV Immature Gran % (Auto) Neut % (Auto) Lymph % (Auto) [place] % (Auto) Eos % (Auto) Baso % (Auto) Neut # (Auto) Lymph # (Auto) [place] # (Auto) Eos # (Auto) Baso # (Auto) Immature Gran # (Auto) Sodium Potassium Chloride Carbon Dioxide Anion Gap BUN Creatinine Est Cr Clr Drug Dosing Est GFR ( Amer) Est GFR (Non-Af Amer) BUN/Creatinine Ratio Glucose Calcium Total Bilirubin AST ALT Alkaline Phosphatase Total Protein Albumin Globulin Albumin/Globulin Ratio TSH Urine Color Yellow Urine Appearance Clear Urine pH 5.5 Ur Specific [place] 1.004 Urine Protein Negative Urine Glucose (UA) Negative Urine Ketones Negative Urine Blood Negative Urine Nitrite Negative Urine Bilirubin Negative Urine Urobilinogen Negative Ur Leukocyte Esterase 2+ H Urine WBC (Auto) 5-10 H Urine RBC (Auto) 0-4 U Hyaline Cast (Auto) 1-5 U Epithel Cells (Auto) 10-20 H Urine Bacteria (Auto) Negative Urine Test Salicylates Urine Opiates Screen Neg Ur Methadone, Qual Neg Acetaminophen Urine Barbiturates Neg Ur Phencyclidine (PCP) Neg U Amphetamin/Meth Scrn Neg MDMA (Ecstasy) Screen Neg U Benzodiazepines Scrn Neg Ur Cocaine Metabolite Neg U Marijuana (THC) Screen Neg Ethyl Alcohol mg/dL SARS-CoV-2, RNA, NAAT NEGATIVE 12/26/21 12/26/21 12/26/21 14:36 14:36 14:36 WBC 6.29 RBC 5.00 Hgb 14.2 Hct 41.6 MCV 83.2 MCH 28.4 MCHC 34.1 RDW Std Deviation 41.8 RDW Coeff of Margo 13.8 Plt Count 200 MPV 9.7 Immature Gran % (Auto) 0.2 Neut % (Auto) 63.7 Lymph % (Auto) 27.7 [place] % (Auto) 7.6 Eos % (Auto) 0.5 Baso % (Auto) 0.3 Neut # (Auto) 4.01 Lymph # (Auto) 1.74 [place] # (Auto) 0.48 Eos # (Auto) 0.03 Baso # (Auto) 0.02 Immature Gran # (Auto) 0.01 Sodium 137 Potassium 3.9 Chloride 101 Carbon Dioxide 29 Anion Gap 7 BUN 16 Creatinine 0.89 Est Cr Clr Drug Dosing 71.4 Est GFR ( Amer) 89.5 Est GFR (Non-Af Amer) 77.2 BUN/Creatinine Ratio 18.0 Glucose 78 Calcium 9.3 Total Bilirubin 0.8 AST 17 ALT 16 Alkaline Phosphatase 74 Total Protein 7.0 Albumin 4.2 Globulin 2.8 Albumin/Globulin Ratio 1.5 TSH 3.655 Urine Color Urine Appearance Urine pH Ur Specific [place] Urine Protein Urine Glucose (UA) Urine Ketones Urine Blood Urine Nitrite Urine Bilirubin Urine Urobilinogen Ur Leukocyte Esterase Urine WBC (Auto) Urine RBC (Auto) U Hyaline Cast (Auto) U Epithel Cells (Auto) Urine Bacteria (Auto) Urine Test Salicylates Urine Opiates Screen Ur Methadone, Qual Acetaminophen Urine Barbiturates Ur Phencyclidine (PCP) U Amphetamin/Meth Scrn MDMA (Ecstasy) Screen U Benzodiazepines Scrn Ur Cocaine Metabolite U Marijuana (THC) Screen Ethyl Alcohol mg/dL SARS-CoV-2, RNA, NAAT 12/26/21 12/26/21 12/26/21 14:36 14:36 14:44 WBC RBC Hgb Hct MCV MCH MCHC RDW Std Deviation RDW Coeff of Margo Plt Count MPV Immature Gran % (Auto) Neut % (Auto) Lymph % (Auto) [place] % (Auto) Eos % (Auto) Baso % (Auto) Neut # (Auto) Lymph # (Auto) [place] # (Auto) Eos # (Auto) Baso # (Auto) Immature Gran # (Auto) Sodium Potassium Chloride Carbon Dioxide Anion Gap BUN Creatinine Est Cr Clr Drug Dosing Est GFR ( Amer) Est GFR (Non-Af Amer) BUN/Creatinine Ratio Glucose Calcium Total Bilirubin AST ALT Alkaline Phosphatase Total Protein Albumin Globulin Albumin/Globulin Ratio TSH Urine Color Urine Appearance Urine pH Ur Specific [place] Urine Protein Urine Glucose (UA) Urine Ketones Urine Blood Urine Nitrite Urine Bilirubin Urine Urobilinogen Ur Leukocyte Esterase Urine WBC (Auto) Urine RBC (Auto) U Hyaline Cast (Auto) U Epithel Cells (Auto) Urine Bacteria (Auto) Urine Test Negative Salicylates < 3.0 L Urine Opiates Screen Ur Methadone, Qual Acetaminophen < 3 L Urine Barbiturates Ur Phencyclidine (PCP) U Amphetamin/Meth Scrn MDMA (Ecstasy) Screen U Benzodiazepines Scrn Ur Cocaine Metabolite U Marijuana (THC) Screen Ethyl Alcohol mg/dL < 10.0 SARS-CoV-2, RNA, NAAT 12/27/21 16:00 WBC RBC Hgb Hct MCV MCH MCHC RDW Std Deviation RDW Coeff of Margo Plt Count MPV Immature Gran % (Auto) Neut % (Auto) Lymph % (Auto) [place] % (Auto) Eos % (Auto) Baso % (Auto) Neut # (Auto) Lymph # (Auto) [place] # (Auto) Eos # (Auto) Baso # (Auto) Immature Gran # (Auto) Sodium Potassium Chloride Carbon Dioxide Anion Gap BUN Creatinine Est Cr Clr Drug Dosing Est GFR ( Amer) Est GFR (Non-Af Amer) BUN/Creatinine Ratio Glucose Calcium Total Bilirubin AST ALT Alkaline Phosphatase Total Protein Albumin Globulin Albumin/Globulin Ratio TSH Urine Color Yellow Urine Appearance Clear Urine pH 5.0 Ur Specific [place] 1.021 Urine Protein Negative Urine Glucose (UA) Negative Urine Ketones Trace H Urine Blood Trace H Urine Nitrite Negative Urine Bilirubin Negative Urine Urobilinogen Negative Ur Leukocyte Esterase 3+ H Urine WBC (Auto) >30 H Urine RBC (Auto) 0-4 U Hyaline Cast (Auto) 1-5 U Epithel Cells (Auto) 20-30 H Urine Bacteria (Auto) Negative Urine Test Salicylates Urine Opiates Screen Ur Methadone, Qual Acetaminophen Urine Barbiturates Ur Phencyclidine (PCP) U Amphetamin/Meth Scrn MDMA (Ecstasy) Screen U Benzodiazepines Scrn Ur Cocaine Metabolite U Marijuana (THC) Screen Ethyl Alcohol mg/dL SARS-CoV-2, RNA, NAAT Hospital Course (1) Major depressive disorder with current active episode: 12/29/21: trazodone 100 mg this hs and shift pm Zoloft to evening meal. Safety planning. Transition plan for work. 12/28/21: d/c Vistaril hs in favor of a trial of trazodone 50-100 mg po qhs. Risks/benefits/alternatives reviewed. Family session today. 12/27/21: The patient was admitted to the [facility] ([facility] mental health unit) on q15 min checks (behavioral with suicide precautions) for safety. The patient will participate in group, recreational, and milieu therapies and will be offered additional individual and family sessions as clinically appropriate. Risks/benefits/alternatives reviewed re: antidepressants and sleep medication. She agreed to increase Zoloft to 200 mg daily to complete the trial and will try Vistaril again tonight. Repeat UA with C&S as appropriate. Mental Health & Subst Abuse Tx Psychiatrist Name of Psychiatrist: Areli Saul Psychiatrist's Date of Appointment with Psychiatrist: 01/26/22 Time of Appointment with Psychiatrist: 8:30 AM Psychiatric Appointment Comment: [address] [facility] [id number] Therapist Name of Therapist: Angeli Psychiatry Therapist's Date of Therapist Appointment: 12/31/21 Time of Therapist Appointment: 5:20 PM Therapy Appointment Comment: Teletherapy Post Discharge Appointments Primary Care Physician Name Of Family Doctor: Angeli Savage [facility] - Dr. Johnson Primary Care Provider Appointment Comment: Follow up as needed. Smoking Cessation Counseling Tobacco Cessation Medication Prescribed at Discharge: Not Applicable/Non-Smoker Other #1: Name of Aftercare Appointment: [facility] Phone Number of Aftercare Appointment: [phone] Aftercare Appointment Comment: On waitlist - call for updates. Contact Information Discharge Discharge Address: [address] [place] [address] Discharge Plan Discharge Items Patient Disposition: Home - Self-Care Reason For Visit: MDD Discharge Diagnosis: major depressive disorder Activity: Resume your previous activity Non-emergency contact: Primary Care Provider, Psychiatrist and Therapist Call non-emergency contact if: you have any medication questions and your symptoms worsen Follow-up/Referrals: Andriy Johnson DO [Primary Care Provider] - Diet: Regular Addtl Attending Provider Instructions: SPECIAL CARE INSTRUCTIONS: 1. Follow through with your scheduled aftercare appointments. If unable to keep an appointment, please call to reschedule. 2. Take your medication only as prescribed. Medication should not be changed or stopped without the approval of your doctor. In the event of worsening symptoms or concerns about side effects, contact your doctor immediately. 3. Utilize new healthy coping skills, anger management skills, and stress management skills learned during your hospitalization. Journal feelings and process them with a support person. Identify stressors or situations that may result in relapse, deterioration or inappropriate behaviors and develop a plan to deal with those issues. 4. If your coping skills are ineffective and you are in crisis, contact your outpatient providers for direction. If unable to reach your providers, please call the [facility] CRISIS LINE AT , go to the [facility] walk-in center at [address], [address], [place], or go to the closest Emergency Room. 5. Avoid alcohol and un-prescribed drugs. 6. You have been provided with the Mental Health Advance Directives Pamphlet for your review. 7. Your condition is stable for discharge to outpatient level of care, but recovery is an ongoing process. Ifthoughts to harm yourself or others return, follow the safety plan developed during your stay. Planning for a safe return home includes securing weapons. Our treatment team recommends weaponsbe removed from the home until your outpatient provider reassesses your progress. In rare cases where the items themselvescannot be removed, guns and ammunitionshould be secured separatelyand keys stored by a reliable personoutside of the home. If you were admitted on an involuntary commitment, the police or other legal authorities may be involved in this process. AFTERCARE APPOINTMENTS: * Please call your insurance company prior to your scheduled appointment to confirm your aftercare providers are covered. Take your insurance information to your appointments. WHO TO CALL AND WHEN: Medical Emergencies: For questions or emergencies related to your hospital stay, please contact the Inpatient Behavioral Health Unit at [phone]. A electric car operator is on-call 12/04 for the Behavioral Health Unit for emergencies At any time you feel your situation is an emergency, you may also call 911 immediately. Pending Studies at Discharge: No Stand-Alone Forms: My [facility], Smoking Cessation Medications and DC Order Prescriptions: New trazodone 50 mg Tablet 50 mg PO HS PRN (Reason: insomnia) 15 Days Qty: 15 RF: 0 sertraline 100 mg Tablet 100 mg PO BIDM 30 Days Qty: 60 RF: 0 trazodone 100 mg Tablet 100 mg PO HS 30 Days Qty: 30 RF: 0 Continued montelukast [Singulair] 10 mg tablet 10 mg PO DAILY RF: 0 Multivitamin tablet 1 tab PO AM Qty: 0 RF: 0 fluticasone propionate 50 mcg/actuation [place],Suspension 2 spray INTRANASAL DAILY RF: 0 cetirizine [Zyrtec] 10 mg Tablet 10 mg PO DAILY RF: 0 Discontinued sertraline 100 mg Tablet 100 mg PO HS RF: 0 sertraline 50 mg Tablet 50 mg PO DAILY RF: 0 Discharge Orders: Discharge Order (Routine); Ordered 12/30/21 Ordered By: Triny Corea Admission Data Admit Date/Time: 12/26/21 18:41 Attending Provider: Triny Corea Admit Provider: Triny Corea Primary Care Provider: Andriy Johnson Other Interventions: Discharge Summary Assessment (RN) Last Done: 12/30/21 11:59 PSY Interdisciplinary Discharge Planning Last Done: 12/30/21 11:59 Coding Level of Care Code 54194 D/C day mgmt > 30 min Diagnoses Major depressive disorder with current active episode F32.9
[2021-12-30 12:05] VITALS: PULSE 79
== END 2021-12-30 19:35 | disposition home or self-care (01) | DRG 881 ==
LOC: ED 13:14 → 3S 18:41

== ENCOUNTER 2022-12-31 13:35 | Inpatient (IN) ==
--- NOTE | 2022-12-31 14:23 | Emergency Department Note ---
Impression & Plan Major depressive disorder with current active episode, Mood disorder ED Provider Note NAME: DEE DEE MENDIETA AGE: 47 SEX: F : 1975 ARRIVES VIA: Walk-In INFORMANT: Patient ED PROVIDER(S): Yeyo Mascorro DO CHIEF COMPLAINT: Depression HPI: Patient is a 47-year-old female with a past medical history of depression who presents to the ER who notes that this has gotten significantly worse over the past week. She notes she is unable to get out of bed. She has not getting up to eat or drink. She believes her recent admission of her son to the [facility] has sparked this. She admits to over the past 2 days passive suicidal thoughts. She does not want to live anymore. No clear plan to kill herself. She denies any headache or change in vision. No chest pain or shortness of breath. No nausea, vomiting, or diarrhea. No dysuria, urgency, or frequency. No other exa cerbating or remitting factors. PAST MEDICAL HISTORY:See Below PAST SURGICAL HISTORY:See Below FAMILY HISTORY:See Below SOCIAL HISTORY:See Below HOME MEDICATIONS:See Below ALLERGIES:See Below VITALS:See Below PHYSICAL EXAMINATION: GENERAL: Sitting up in bed, alert, well appearing, well nourished, no distress, non-toxic EYE EXAM: normal conjunctiva. OROPHARYNX: mucous membranes are moist LUNGS: Clear to auscultation. Normal chest wall mechanics HEART: no murmurs, S1 normal and S2 normal ABDOMEN: abdomen soft, non-tender, normo-active bowel sounds, no masses, no rebound or guarding. UPPER EXTREMITIES: upper extremities are grossly normal. LOWER EXTREMITIES: No pitting edema. NEURO EXAM: Normal sensorium, cranial nerves II-XII grossly intact, normal speech, no gross weakness of arms, no gross weakness of legs. MEDICAL DECISION MAKING: Patient is a 47-year-old female who presents the ER for depression. Blood work was obtained and shows no significant leukocytosis or anemia. BMP along with LFTs bilirubin and TSH was unremarkable. UA was clean. Tox was negative with the exception of benzodiazepine. COVID was negative. Patient was accepted to [facility] on a 201 on. Patient rested comfortably under care. Was evaluated by her psychiatric ocular care aide who I discussed this case with. They discussed case with [facility] the patient was independently evaluated by [facility]. ED OBSERVATION: The patient was placed in observation status at 1340. Medical stability and psychiatric placement. During the time in observation, the patient was frequently reassessed and received blood work and evaluation by her psychiatric ocular care aide. On Final reassessment the patient labs were stable as well as vitals. Patient was accepted to [facility] and the patient will be admitted at this time. A total observation time of 6 hours and was admitted to the hospital at 1945. Triage Nursing notes reviewed. Limited review of prior medical records performed Vital Signs: reviewed and remarkable for hypotension Differential diagnosis: Mood disorder, infection, hypoglycemia, electrolyte abnormalities, cardiac sources, intracerebral event, toxicologic, trauma, neurologic, as well as other pathologies. ER treatment provided: See below Diagnostics interpreted by me include EKG and cardiac monitoring as listed below: -Laboratory studies:Interpreted by me as stated above in MDM and shown below. 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 Two separate primaries 3.0 and 1.5 cm Pathologic stage [id number] stage IIB Oncotype DX score of 32 Status post systemic chemotherapy Taxotere and Cytoxan for 4 cycles Status post completion of radiation therapy 09/25/2015 received 6120 cGy Plan treatment with tamoxifen Status post genetic testing of BRCA1 and BRCA2 negative" On 10/24/15 16:20 Diana Flores wrote "Left breast mass detected on physical examination Status post mammography and ultrasound followed by biopsy Biopsy 12/06/2014 2:00 biopsy invasive carcinoma grade 2 3:00 biopsy invasive carcinoma grade 2 Status post bilateral mastectomies with left sentinel lymph node biopsy and axillary dissection right sentinel lymph node biopsy 02/25/2015 Right breast benign 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 Two separate primaries 3.0 and 1.5 cm Pathologic stage [id number] stage IIB Oncotype DX score of 32 Status post systemic chemotherapy Taxotere and Cytoxan for 4 cycles Status post completion of radiation therapy 09/25/2015 received 6120 cGy Plan treatment with tamoxifen Status post genetic testing of BRCA1 and BRCA2 negative" On 09/30/15 18:37 Diana Flores wrote "Left breast mass detected on physical examination Status post mammography and ultrasound followed by biopsy Biopsy 12/06/2014 2:00 biopsy invasive carcinoma grade 2 3:00 biopsy invasive carcinoma grade 2 Status post bilateral mastectomies with left sentinel lymph node biopsy and axillary dissection right sentinel lymph node biopsy 02/25/2015 Right breast benign 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 Two separate primaries 3.0 and 1.5 cm Pathologic stage [id number] stage IIB Oncotype DX score of 32 Status post systemic chemotherapy Taxotere and Cytoxan for 4 cycles Status post completion of radiation therapy 09/25/2015 received 6120 cGy Plan treatment with tamoxifen" On 09/30/15 16:44 Diana Flores wrote "Left breast mass detected on physical examination Status post mammography and ultrasound followed by biopsy Biopsy 12/06/2014 2:00 biopsy invasive carcinoma grade 2 3:00 biopsy invasive carcinoma grade 2 Status post bilateral mastectomies with left sentinel lymph node biopsy and axillary dissection right sentinel lymph node biopsy 02/25/2015 Right breast benign 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 Pathologic stage [id number] stage IIB Oncotype DX score of 32 Status post systemic chemotherapy Taxotere and Cytoxan for 4 cycles Status post completion of radiation therapy 09/25/2015 received 6120 cGy Plan treatment with tamoxifen" On 09/30/15 16:44 Diana Flores wrote "Left breast mass detected on physical examination Status post mammography and ultrasound followed by biopsy Biopsy 12/06/2014 2:00 biopsy invasive carcinoma grade 2 3:00 biopsy invasive carcinoma grade 2 Status post bilateral mastectomies with left sentinel lymph node biopsy and axillary dissection right sentinel lymph node biopsy 02/25/2015 Right breast benign 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 Pathologic stage [id number] stage IIB Oncotype DX score of 32 Status post systemic chemotherapy Taxotere and Cytoxan for 4 cycles Status post completion of radiation therapy 09/25/2015 received 6120 cGy Plan treatment with tamoxifen" On 09/30/15 16:19 Diana Flores wrote "Left breast mass detected on physical examination Status post mammography and ultrasound followed by biopsy Biopsy 12/06/2014 2:00 biopsy invasive carcinoma grade 2 3:00 biopsy invasive carcinoma grade 2 Status post bilateral mastectomies with left sentinel lymph node biopsy and axillary dissection right sentinel lymph node biopsy 02/25/2015 Right breast benign 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 Pathologic stage [id number] stage IIB Oncotype DX score of 32 Status post systemic chemotherapy Taxotere and Cytoxan for 4 cycles Status post completion of radiation therapy 09/25/2015 received 6120 cGy Plan treatment with tamoxifen" On 09/30/15 16:19 Diana Flores wrote "Left breast mass detected on physical examination Status post mammography and ultrasound followed by biopsy Biopsy 12/06/2014 2:00 biopsy invasive carcinoma grade 2 3:00 biopsy invasive carcinoma grade 2 Status post bilateral mastectomies with left sentinel lymph node biopsy and axillary dissection right sentinel lymph node biopsy 02/25/2015 Right breast benign 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 Pathologic stage [id number] stage IIB Oncotype DX score of 32 Status post systemic chemotherapy Taxotere and Cytoxan for 4 cycles Status post completion of radiation therapy 09/25/2015 received 6120 cGy Plan treatment with tamoxifen" On 07/16/15 16:02 Diana Flores wrote "Left breast mass detected on physical examination Status post mammography and ultrasound followed by biopsy Biopsy 12/06/2014 2:00 biopsy invasive carcinoma grade 2 3:00 biopsy invasive carcinoma grade 2 Status post bilateral mastectomies with left sentinel lymph node biopsy and axillary dissection right sentinel lymph node biopsy 02/25/2015 Right breast benign 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 Pathologic stage [id number] stage IIB Oncotype DX score of 32 Status post systemic chemotherapy Taxotere and Cytoxan for 4 cycles Tamoxifen therapy" Suicidal ideations Surgical History H/O breast biopsy Social History Smoking Status: Never smoker Preferred Language: Montenegrin Communication Ability: Effective Miniature Model Maker Required: No Beliefs That Will Affect Care: Gnosticist Gnosticist Beliefs: mormonism Feels Safe at Home: Yes Gender Identity: Female Assistive Devices: Glasses Allergies Allergies Allergy/AdvReac Type Severity Reaction Status Date / Time Cephalosporins Allergy Intermediate KEFLEX--CRIS Verified 01/12/22 00:01 SEA/VOMITIN G cephalexin [From Keflex] AdvReac Intermediate NAUSEA/VOMI Verified 01/12/22 00:01 TING Home Meds Home Medications Medication Instructions Recorded Confirmed montelukast 10 mg tablet 10 mg PO DAILY 04/26/19 12/31/22 (Singulair) cetirizine 10 mg tablet (Zyrtec) 10 mg PO DAILY 12/27/21 12/31/22 fluticasone propionate 50 2 spray intranasal DAILY 12/27/21 12/31/22 mcg/actuation nasal spray,suspension multivitamin 1 tab PO DAILY 01/12/22 12/31/22 levothyroxine 25 mcg tablet 25 mcg PO DAILYBB 12/31/22 12/31/22 rosuvastatin 10 mg tablet 10 mg PO DAILY 12/31/22 12/31/22 sertraline 100 mg tablet 100 mg PO BID 12/31/22 12/31/22 trazodone 50 mg tablet 50 mg PO HS 12/31/22 12/31/22 vortioxetine 10 mg tablet 10 mg PO DAILY 12/31/22 12/31/22 (Trintellix) Results & Data (ED) Vital Signs Vital Signs - 24 hr 12/31/22 13:51 Temperature 36.3 C L Temperature Source Temporal Artery Scan Pulse Rate 86 Respiratory Rate 18 Respiratory Effort / Characteristics Non-Labored Respiratory Depth Normal Blood Pressure 99/69 L Blood Pressure Mean 79 Pulse Oximetry 98 Oxygen Delivery Method Room Air Sepsis Recent Fever Within 48 Hours No Sepsis New/Unexplained Change in Mental Status No Sepsis Action Taken by Nursing No Action Required Laboratory Data 12/31/22 14:19 12/31/22 14:19 Lab Results 12/31/22 12/31/22 12/31/22 Range/Units 14:10 14:19 14:19 WBC 6.58 (4.8-10.8) K/ul RBC 5.17 (4.20-5.40) M/uL Hgb 14.4 (12.0-16.0) g/dl Hct 43.1 (37.0-47.0) % MCV 83.4 (80.0-100.0) fL MCH 27.9 (25.0-34.0) pg MCHC 33.4 (32.0-36.0) g/dL RDW Std Deviation 40.1 (36.4-46.3) fL RDW Coeff of Margo 13.2 (11.5-14.5) % Plt Count 213 (130-400) K/uL MPV 9.9 (9.4-12.4) fL Immature Gran % (Auto) 0.2 % Neut % (Auto) 73.0 % Lymph % (Auto) 20.8 % [place] % (Auto) 5.0 % Eos % (Auto) 0.2 % Baso % (Auto) 0.8 % Neut # (Auto) 4.81 (1.40-6.50) K/uL Lymph # (Auto) 1.37 (1.2-3.4) K/uL [place] # (Auto) 0.33 (0.11-0.59) K/uL Eos # (Auto) 0.01 (0-0.50) K/uL Baso # (Auto) 0.05 (0-0.2) K/uL Immature Gran # (Auto) 0.01 (0.01-0.20) K/uL Sodium 140 (136-145) mmol/L Potassium 3.6 (3.5-5.1) mmol/L Chloride 101 (98-107) mmol/L Carbon Dioxide 29 (21-32) mmol/L Anion Gap 10 (3-11) BUN 19 (6-23) mg/dl Creatinine 0.99 (0.6-1.2) mg/dl Est Cr Clr Drug Dosing 61.7 ml/min Est GFR ( Amer) 78.1 ml/min Est GFR (Non-Af Amer) 67.4 ml/min BUN/Creatinine Ratio 19.2 (10-20) Glucose 99 (70-99(Fasting)) mg/dl Calcium 9.3 (8.6-10.3) mg/dl Total Bilirubin 0.9 (0.2-1.0) mg/dl AST 23 (13-39) U/L ALT 18 (7-52) U/L Alkaline Phosphatase 77 (34-104) U/L Total Protein 7.3 (6.0-8.3) gm/dl Albumin 4.4 (3.4-5.0) gm/dl Globulin 2.9 (2.5-4.0) gm/dl Albumin/Globulin Ratio 1.5 (0.9-2) TSH (0.300-4.500) uIu/ml Urine Color Yellow Urine Appearance Clear (Clear) Urine pH 5.5 (4.5-7.5) Ur Specific [place] 1.025 (1.000-1.030) Urine Protein Negative (Negative) Urine Glucose (UA) Negative (Negative) Urine Ketones Negative (Negative) Urine Blood Negative (Negative) Urine Nitrite Negative (Negative) Urine Bilirubin Negative (Negative) Urine Urobilinogen Negative (Negative) Ur Leukocyte Esterase Negative (Negative) POC Ur Test (NEG) Salicylates (3.0-30) mg/dl Urine Opiates Screen (Neg) Ur Methadone, Qual (Neg) Acetaminophen (10-30) ug/ml Urine Barbiturates (Neg) Ur Phencyclidine (PCP) (Neg) U Amphetamin/Meth Scrn (Neg) MDMA (Ecstasy) Screen (Neg) U Benzodiazepines Scrn (Neg) Ur Cocaine Metabolite (Neg) U Marijuana (THC) Screen (Neg) Ethyl Alcohol mg/dL (<10.0) mg/dl SARS-CoV-2, RNA, NAAT (NEGATIVE) 12/31/22 12/31/22 12/31/22 Range/Units 14:19 14:19 14:19 WBC (4.8-10.8) K/ul RBC (4.20-5.40) M/uL Hgb (12.0-16.0) g/dl Hct (37.0-47.0) % MCV (80.0-100.0) fL MCH (25.0-34.0) pg MCHC (32.0-36.0) g/dL RDW Std Deviation (36.4-46.3) fL RDW Coeff of Margo (11.5-14.5) % Plt Count (130-400) K/uL MPV (9.4-12.4) fL Immature Gran % (Auto) % Neut % (Auto) % Lymph % (Auto) % [place] % (Auto) % Eos % (Auto) % Baso % (Auto) % Neut # (Auto) (1.40-6.50) K/uL Lymph # (Auto) (1.2-3.4) K/uL [place] # (Auto) (0.11-0.59) K/uL Eos # (Auto) (0-0.50) K/uL Baso # (Auto) (0-0.2) K/uL Immature Gran # (Auto) (0.01-0.20) K/uL Sodium (136-145) mmol/L Potassium (3.5-5.1) mmol/L Chloride (98-107) mmol/L Carbon Dioxide (21-32) mmol/L Anion Gap (3-11) BUN (6-23) mg/dl Creatinine (0.6-1.2) mg/dl Est Cr Clr Drug Dosing ml/min Est GFR ( Amer) ml/min Est GFR (Non-Af Amer) ml/min BUN/Creatinine Ratio (10-20) Glucose (70-99(Fasting)) mg/dl Calcium (8.6-10.3) mg/dl Total Bilirubin (0.2-1.0) mg/dl AST (13-39) U/L ALT (7-52) U/L Alkaline Phosphatase (34-104) U/L Total Protein (6.0-8.3) gm/dl Albumin (3.4-5.0) gm/dl Globulin (2.5-4.0) gm/dl Albumin/Globulin Ratio (0.9-2) TSH 2.480 (0.300-4.500) uIu/ml Urine Color Urine Appearance (Clear) Urine pH (4.5-7.5) Ur Specific [place] (1.000-1.030) Urine Protein (Negative) Urine Glucose (UA) (Negative) Urine Ketones (Negative) Urine Blood (Negative) Urine Nitrite (Negative) Urine Bilirubin (Negative) Urine Urobilinogen (Negative) Ur Leukocyte Esterase (Negative) POC Ur Test (NEG) Salicylates < 3.0 L (3.0-30) mg/dl Urine Opiates Screen (Neg) Ur Methadone, Qual (Neg) Acetaminophen < 3 L (10-30) ug/ml Urine Barbiturates (Neg) Ur Phencyclidine (PCP) (Neg) U Amphetamin/Meth Scrn (Neg) MDMA (Ecstasy) Screen (Neg) U Benzodiazepines Scrn (Neg) Ur Cocaine Metabolite (Neg) U Marijuana (THC) Screen (Neg) Ethyl Alcohol mg/dL < 10.0 (<10.0) mg/dl SARS-CoV-2, RNA, NAAT (NEGATIVE) 12/31/22 12/31/22 12/31/22 Range/Units 14:19 14:19 14:33 WBC (4.8-10.8) K/ul RBC (4.20-5.40) M/uL Hgb (12.0-16.0) g/dl Hct (37.0-47.0) % MCV (80.0-100.0) fL MCH (25.0-34.0) pg MCHC (32.0-36.0) g/dL RDW Std Deviation (36.4-46.3) fL RDW Coeff of Margo (11.5-14.5) % Plt Count (130-400) K/uL MPV (9.4-12.4) fL Immature Gran % (Auto) % Neut % (Auto) % Lymph % (Auto) % [place] % (Auto) % Eos % (Auto) % Baso % (Auto) % Neut # (Auto) (1.40-6.50) K/uL Lymph # (Auto) (1.2-3.4) K/uL [place] # (Auto) (0.11-0.59) K/uL Eos # (Auto) (0-0.50) K/uL Baso # (Auto) (0-0.2) K/uL Immature Gran # (Auto) (0.01-0.20) K/uL Sodium (136-145) mmol/L Potassium (3.5-5.1) mmol/L Chloride (98-107) mmol/L Carbon Dioxide (21-32) mmol/L Anion Gap (3-11) BUN (6-23) mg/dl Creatinine (0.6-1.2) mg/dl Est Cr Clr Drug Dosing ml/min Est GFR ( Amer) ml/min Est GFR (Non-Af Amer) ml/min BUN/Creatinine Ratio (10-20) Glucose (70-99(Fasting)) mg/dl Calcium (8.6-10.3) mg/dl Total Bilirubin (0.2-1.0) mg/dl AST (13-39) U/L ALT (7-52) U/L Alkaline Phosphatase (34-104) U/L Total Protein (6.0-8.3) gm/dl Albumin (3.4-5.0) gm/dl Globulin (2.5-4.0) gm/dl Albumin/Globulin Ratio (0.9-2) TSH (0.300-4.500) uIu/ml Urine Color Urine Appearance (Clear) Urine pH (4.5-7.5) Ur Specific [place] (1.000-1.030) Urine Protein (Negative) Urine Glucose (UA) (Negative) Urine Ketones (Negative) Urine Blood (Negative) Urine Nitrite (Negative) Urine Bilirubin (Negative) Urine Urobilinogen (Negative) Ur Leukocyte Esterase (Negative) POC Ur Test NEG (NEG) Salicylates (3.0-30) mg/dl Urine Opiates Screen Neg (Neg) Ur Methadone, Qual Neg (Neg) Acetaminophen (10-30) ug/ml Urine Barbiturates Neg (Neg) Ur Phencyclidine (PCP) Neg (Neg) U Amphetamin/Meth Scrn Neg (Neg) MDMA (Ecstasy) Screen Neg (Neg) U Benzodiazepines Scrn Pos H (Neg) Ur Cocaine Metabolite Neg (Neg) U Marijuana (THC) Screen Neg (Neg) Ethyl Alcohol mg/dL (<10.0) mg/dl SARS-CoV-2, RNA, NAAT NEGATIVE (NEGATIVE) Discharge Plan Visit Data Chief Complaint: Mental Health Evaluation Stated Complaint: MENTAL HEALTH CRISIS ED Provider: Yeyo Mascorro Discharge Problem: Major depressive disorder with current active episode, Mood disorder Discharge Instructions Interventions: ED Discharge Assessment Last Done: 12/31/22 19:38 Forms Stand Alone Forms: My [facility], Suicide Prevention Resources Prescriptions Prescriptions: No Action montelukast [Singulair] 10 mg tablet 10 mg PO DAILY fluticasone propionate 50 mcg/actuation [place],Suspension 2 spray INTRANASAL DAILY cetirizine [Zyrtec] 10 mg Tablet 10 mg PO DAILY multivitamin Tablet 1 tab PO DAILY trazodone 50 mg tablet 50 mg PO HS levothyroxine 25 mcg tablet 25 mcg PO DAILYBB sertraline 100 mg tablet 100 mg PO BID Trintellix 10 mg tablet 10 mg PO DAILY rosuvastatin 10 mg tablet 10 mg PO DAILY Referrals Referrals: Andriy Johnson DO [Primary Care Provider] -
[2022-12-31 14:53] LABS: Basophils # (auto) 0.05 K/uL (0-0.2); Basophils % (auto) 0.8 %; Eosinophils # (auto) 0.01 K/uL (0-0.50); Eosinophils % (auto) 0.2 %; Hematocrit (blood only) 43.1 % (37.0-47.0); Hemoglobin 14.4 g/dl (12.0-16.0); Immature Granulocytes # (auto) 0.01 K/uL (0.01-0.20); Immature Granulocytes % (auto) 0.2 %; Lymphocytes # (auto) 1.37 K/uL (1.2-3.4); Lymphocytes % (auto) 20.8 %; Mean Corpuscular Hemoglobin 27.9 pg (25.0-34.0); Mean Corpuscular Hgb Conc 33.4 g/dL (32.0-36.0); Mean Corpuscular Volume 83.4 fL (80.0-100.0); Mean Platelet Volume 9.9 fL (9.4-12.4); Monocytes # (auto) 0.33 K/uL (0.11-0.59); Neutrophils # (auto) 4.81 K/uL (1.40-6.50); Platelet Count 213 K/uL (130-400); RDW Coefficient of Variation 13.2 % (11.5-14.5); RDW Standard Deviation 40.1 fL (36.4-46.3); Red Blood Count 5.17 M/uL (4.20-5.40); White Blood Count 6.58 K/ul (4.8-10.8)
[2022-12-31 14:58] LABS: Albumin Level 4.4 gm/dl (3.4-5.0); Bilirubin,Total 0.9 mg/dl (0.2-1.0); Calcium 9.3 mg/dl (8.6-10.3); Potassium 3.6 mmol/L (3.5-5.1)
[2022-12-31 15:02] LABS: Acetaminophen < 3 ug/ml (10-30); Salicylate < 3.0 mg/dl (3.0-30)
[2022-12-31 15:04] LABS: Albumin Globulin Ratio 1.5 (0.9-2); BUN Creatinine Ratio 19.2 (10-20); Creatinine Clr Calc Pharmacy 61.7 ml/min; Est GFR (African American) 78.1 ml/min; Est GFR (Non-African American) 67.4 ml/min; Globulin 2.9 gm/dl (2.5-4.0); Total Protein 7.3 gm/dl (6.0-8.3)
[2022-12-31 16:10] LABS: Appearance Urine Clear (Clear); Bilirubin Urine Negative (Negative); Blood Urine Negative (Negative); Color Urine Yellow; Glucose Urine UA Negative (Negative); Ketones Urine Negative (Negative); Leukocyte Esterase Urine Negative (Negative); Nitrite Urine Negative (Negative); Protein Urine Negative (Negative); Specific Gravity Urine 1.025 (1.000-1.030); Urobilinogen Urine Negative (Negative); pH Urine 5.5 (4.5-7.5)
[2022-12-31 16:18] LABS: Amphetamines+Metham, Urine Neg (Neg); Barbiturates, Urine Neg (Neg); Benzodiazepine, Urine Pos (Neg); Cocaine, Urine Neg (Neg); MDMA (Ecstacy), Urine Neg (Neg); Methadone, Urine Neg (Neg); Opiate, Urine Neg (Neg); Phencyclidine, Urine Neg (Neg)
[2022-12-31] MEDS ORDERED: BISMUTH SUBSALICYLATE LIQD 236 ML PO PRN (21:05)
[2022-12-31] MEDS ORDERED: ALUMINUM/MAGNESIUM SUSP 30 ML UDC PO PRN (21:05)
[2022-12-31] MEDS ORDERED: ACETAMINOPHEN 325 MG TAB PO PRN (21:05)
[2022-12-31] MEDS ORDERED: hydrOXYzine HCl 25 MG TAB PO PRN ×2 (21:05)
[2022-12-31] MEDS ORDERED: MAGNESIUM HYDROXIDE SUSP 30 ML UDC PO PRN (21:05)
[2022-12-31] MEDS ORDERED: SODIUM CHLORIDE 0.65% NA SOLN 45 ML (OCEAN) PRN (21:05)
[2022-12-31] MEDS: SERTRALINE HCL 100 MG TABLET PO SCH (22:08)
[2022-12-31] MEDS: traZODone HCL 50 MG TAB PO SCH (22:08)
--- NOTE | 2023-01-01 07:45 | History & Physical ---
Date of Service January 01, 2023 Impression / Recommendations Impression 47 y/o F with recurrent major depression who thinks of her symptoms as treatment-resistant but who really doesn't appear to have used more than 2 antidepressants (both SSRI's) and 2 augmentation strategies (fairly low-dose aripiprazole and now vortioxetine). She currently feels overwhelmed and suicidal. (1) Major depressive disorder, recurrent severe without psychotic features: Plan 01/01/2023: The patient was admitted to the [facility] ([facility]) on q15 min checks (behavioral with suicide precautions) for safety. The patient will participate in group, recreational, and milieu therapies and will be offered additional individual and family sessions as clinically appropriate. Discussed a range of strategies including increasing sertraline above 200 mg/day, using a different augmentation agent (such as bupropion) instead of vortioxetine, increasing the vortioxetine. She elected to pursue increasing the vortioxetine. Pt will need to have family member bring in her vortioxetine from home since it's non-formulary here, and that will be necessary just for her to continue it. Inventory Assets Strengths: supportive relationships, has local supports,voluntary, intelligent, employed Needs: safety and stabilization, medication adjustment, additional coping skills Suicide Risk Level Suicide Risk Level: Moderate (q15 min suicide checks) Suicide Risk Level Comments: readily contracts for safety while here Risk Factors Assessment Male: No : Yes Do You Have Access To A Gun?: No Health Problems: No Mental Health Diagnoses: Yes Substance Use Disorders: No Previous Attempt: Yes Family History of Suicide: No Previous Psychiatric Hospitalization: Yes Protective Factors Assessment Employed: Yes ([employer]) Stable Relationships: Yes Supportive Family: Yes Psychiatric History Identifying Data NEEMA MENDIETA is a 47-year-old F who currently lives with and son, has a history of depression, and was admitted on 12/31/22 19:17 on a 201 voluntary commitment for suicidal thoughts. Chief Complaint "I had a really bad relapse on Wednesday". History of Present Illness As part of my review of the medical record, I read the following psychiatric patient case coordinator note: "She states that she is really struggling this week and hasn't been able to get out of bed since Wednesday. She admits to having suicidal thoughts with no plan. She is not eating or drinking well. She is not sure what has triggered this, but does state that her son was here recently for a mental health evaluation and was admitted to the [facility]. She believes this may have "exacerbated the issue". She currently takes Sertraline, Trintellix, and Trazodone. Denies past history of suicide attempt, but was admitted to [address] [place] [id number] this time last year. Denies A/V hallucinations and HI." "Nemea stated she is experiencing thoughts of suicide that have been getting worse over the past few days. Neema stated she has a history of Major Depression and was inpatient on approx. 1 year ago. Neema denies past suicide attempts but did stated that she had thoughts to drive her car recklessly and crash in the past. Neema stated she feels her depression has gotten worse since her son is experiencing "an episode with his mental health and has been at the [facility] since Wednesday." Neema stated her brought her to the ED for evaluation because "I have not been able to get out of bed and not functioning." She stated "I haven't been able to do anything." Neema stated she has been in bed for several days. She stated she has not been showering, not eating, and not going to work. She stated she has lost a few pounds of weight. Neema stated she sleep is okay because of Trazodone. Neema sees Didi Saul at [facility] for medication management. She sees America Matute at [facility] for therapy. She denies HI or aggression. She denies SIB. She denies hallucinations, paranoia, or delusional thinking. She denies any medical issues. She denies legal issues. She denies alcohol or substance use. She denies history of trauma or abuse. Neema is seeking inpatient treatment at this time." and the following psychiatric liaison RN note: "Patient admits to suicidal ideation without a plan. Pt is depressed and was unable to get out of bed for several days. Depression is mostly due to a situational crisis of son who is currently in the [facility]. ROIs were filled out for Didi Saul at [place], America Matute at [email or web address] counseling, PCP Dr. Johnson, and [facility] Mendieta. Pt is alert and oriented with no fall precautions, although can seem unsteady on her feet at times. Current medications are updated in chart. Pt had a previous stay at [facility] the [facility] 1 year ago in December. Pt does not have a family history of mental illness, but she and her son both suffer from depression. Pt's goal is to get past her severe depression and suicidal ideation. Pt is on a regular diet and ate well for her last two meals. Pt is underweight and states she lost 3 lbs recently. Pt denies any alcohol, substance abuse or cigarette smoking. Pt denies A/V hallucinations, HI, or self harm." Pt reports "a long struggle with depression" at maximal doses of 200 mg/day of sertraline. She says she's never taken anything to augment the response except vortioxetine which she started last summer. She thinks "it's helped, but I still get these relapses." She's done fairly well on trazodone but often 100 mg has seemed excessive and 50 mg inadequate - she's never taken 75 mg. At one point attempted augmentation with aripiprazole but doesn't recall any benefit; thinks the maximal dose has been 5 mg and isn't certain why it wasn't increased or why it was stopped. She's pretty certain she's never taken bupropion or any "mood stabilizer" other than aripiprazole (which was still on her list of current medications despite her saying she stopped it a month ago). Past Psychiatric History Current Psychiatric Diagnosis: MDD Outpatient Services: Didi Saul at [facility], America Matute at [facility] Previous Psych Admissions: here in December 2021 Do You Have Access To A Gun?: No History of Previous Suicide Attempt: No Past Medication Trials: Paroxetine in which only stopped as wanted to get , lorazepam prn sleep, sertraline started a few years ago after completed breast CA treatment (which was sucessful but "I just fell apart') Allergies Allergy/AdvReac Type Severity Reaction Status Date / Time Cephalosporins Allergy Intermediate KEFLEX--CRIS Verified 01/12/22 00:01 SEA/VOMITIN G cephalexin [From Keflex] AdvReac Intermediate NAUSEA/VOMI Verified 01/12/22 00:01 TING Home Medications Medication Instructions Recorded Confirmed Type montelukast 10 mg tablet 10 mg PO DAILY 04/26/19 12/31/22 History (Singulair) cetirizine 10 mg tablet (Zyrtec) 10 mg PO DAILY 12/27/21 12/31/22 History fluticasone propionate 50 2 spray intranasal DAILY 12/27/21 12/31/22 History mcg/actuation nasal spray,suspension multivitamin 1 tab PO DAILY 01/12/22 12/31/22 History levothyroxine 25 mcg tablet 25 mcg PO DAILYBB 12/31/22 12/31/22 History rosuvastatin 10 mg tablet 10 mg PO DAILY 12/31/22 12/31/22 History sertraline 100 mg tablet 100 mg PO BID 12/31/22 12/31/22 History trazodone 50 mg tablet 50 mg PO HS PRN Insomnia 12/31/22 12/31/22 History vortioxetine 10 mg tablet 10 mg PO DAILY 12/31/22 12/31/22 History (Trintellix) aripiprazole 5 mg tablet 5 mg PO HS 01/01/23 01/01/23 History Family History Family History of: Depression Family Mental Health History Comment: son Alcohol History Hx of Alcohol Use Over the Past 12 Months: No AUDIT Total Score: 0 Smoking Use Have You Smoked or Used Tobacco Products in the Last 30 Days: No Smoking Status: Never smoker Substance History Hx of Prescription Med Misuse Over the Past 12 Months: No Hx of Over the Counter Med Misuse Over the Past 12 Months: No Hx of Inhalent Misuse Over the Past 12 Months: No Hx of Organic Substance Use Over the Past 12 Months: No Hx of Illegal Substances/Street Drug Use Over Past 12 Months: No Problems as a Result of Past Substance Use: None Identified Personal History Living Arrangements: Home Beliefs That Will Affect Care: Rastafarian Hx Legal Problems: No Hx Traumatic Life Events: No Patient History Medical History (Updated 01/01/23 @ 17:06 by Leonides Hill MD) Breast cancer (12/06/14) "Left breast mass detected on physical examination Status post mammography and ultrasound followed by biopsy Biopsy 12/06/2014 2:00 biopsy invasive carcinoma grade 2 3:00 biopsy invasive carcinoma grade 2 Status post bilateral mastectomies with left sentinel lymph node biopsy and axillary dissection right sentinel lymph node biopsy 02/25/2015 Right breast benign 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 Two separate primaries 3.0 and 1.5 cm Pathologic stage [id number] stage IIB Oncotype DX score of 32 Status post systemic chemotherapy Taxotere and Cytoxan for 4 cycles Status post completion of radiation therapy 09/25/2015 received 6120 cGy Plan treatment with tamoxifen Status post genetic testing of BRCA1 and BRCA2 negative" On 10/24/15 16:20 Diana Flores wrote "Left breast mass detected on physical examination Status post mammography and ultrasound followed by biopsy Biopsy 12/06/2014 2:00 biopsy invasive carcinoma grade 2 3:00 biopsy invasive carcinoma grade 2 Status post bilateral mastectomies with left sentinel lymph node biopsy and axillary dissection right sentinel lymph node biopsy 02/25/2015 Right breast benign 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 Two separate primaries 3.0 and 1.5 cm Pathologic stage [id number] stage IIB Oncotype DX score of 32 Status post systemic chemotherapy Taxotere and Cytoxan for 4 cycles Status post completion of radiation therapy 09/25/2015 received 6120 cGy Plan treatment with tamoxifen Status post genetic testing of BRCA1 and BRCA2 negative" On 09/30/15 18:37 Diana Flores wrote "Left breast mass detected on physical examination Status post mammography and ultrasound followed by biopsy Biopsy 12/06/2014 2:00 biopsy invasive carcinoma grade 2 3:00 biopsy invasive carcinoma grade 2 Status post bilateral mastectomies with left sentinel lymph node biopsy and axillary dissection right sentinel lymph node biopsy 02/25/2015 Right breast benign 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 Two separate primaries 3.0 and 1.5 cm Pathologic stage [id number] stage IIB Oncotype DX score of 32 Status post systemic chemotherapy Taxotere and Cytoxan for 4 cycles Status post completion of radiation therapy 09/25/2015 received 6120 cGy Plan treatment with tamoxifen" On 09/30/15 16:44 Diana Flores wrote "Left breast mass detected on physical examination Status post mammography and ultrasound followed by biopsy Biopsy 12/06/2014 2:00 biopsy invasive carcinoma grade 2 3:00 biopsy invasive carcinoma grade 2 Status post bilateral mastectomies with left sentinel lymph node biopsy and axillary dissection right sentinel lymph node biopsy 02/25/2015 Right breast benign 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 Pathologic stage [id number] stage IIB Oncotype DX score of 32 Status post systemic chemotherapy Taxotere and Cytoxan for 4 cycles Status post completion of radiation therapy 09/25/2015 received 6120 cGy Plan treatment with tamoxifen" On 09/30/15 16:44 Diana Flores wrote "Left breast mass detected on physical examination Status post mammography and ultrasound followed by biopsy Biopsy 12/06/2014 2:00 biopsy invasive carcinoma grade 2 3:00 biopsy invasive carcinoma grade 2 Status post bilateral mastectomies with left sentinel lymph node biopsy and axillary dissection right sentinel lymph node biopsy 02/25/2015 Right breast benign 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 Pathologic stage [id number] stage IIB Oncotype DX score of 32 Status post systemic chemotherapy Taxotere and Cytoxan for 4 cycles Status post completion of radiation therapy 09/25/2015 received 6120 cGy Plan treatment with tamoxifen" On 09/30/15 16:19 Diana Flores wrote "Left breast mass detected on physical examination Status post mammography and ultrasound followed by biopsy Biopsy 12/06/2014 2:00 biopsy invasive carcinoma grade 2 3:00 biopsy invasive carcinoma grade 2 Status post bilateral mastectomies with left sentinel lymph node biopsy and axillary dissection right sentinel lymph node biopsy 02/25/2015 Right breast benign 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 Pathologic stage [id number] stage IIB Oncotype DX score of 32 Status post systemic chemotherapy Taxotere and Cytoxan for 4 cycles Status post completion of radiation therapy 09/25/2015 received 6120 cGy Plan treatment with tamoxifen" On 09/30/15 16:19 Diana Flores wrote "Left breast mass detected on physical examination Status post mammography and ultrasound followed by biopsy Biopsy 12/06/2014 2:00 biopsy invasive carcinoma grade 2 3:00 biopsy invasive carcinoma grade 2 Status post bilateral mastectomies with left sentinel lymph node biopsy and axillary dissection right sentinel lymph node biopsy 02/25/2015 Right breast benign 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 Pathologic stage [id number] stage IIB Oncotype DX score of 32 Status post systemic chemotherapy Taxotere and Cytoxan for 4 cycles Status post completion of radiation therapy 09/25/2015 received 6120 cGy Plan treatment with tamoxifen" On 07/16/15 16:02 Diana Flores wrote "Left breast mass detected on physical examination Status post mammography and ultrasound followed by biopsy Biopsy 12/06/2014 2:00 biopsy invasive carcinoma grade 2 3:00 biopsy invasive carcinoma grade 2 Status post bilateral mastectomies with left sentinel lymph node biopsy and axillary dissection right sentinel lymph node biopsy 02/25/2015 Right breast benign 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 Pathologic stage [id number] stage IIB Oncotype DX score of 32 Status post systemic chemotherapy Taxotere and Cytoxan for 4 cycles Tamoxifen therapy" Major depressive disorder with current active episode Suicidal ideations Surgical History H/O breast biopsy Social History Smoking Status: Never smoker Preferred Language: Citizen Of [place] Communication Ability: Effective 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: No Beliefs That Will Affect Care: Rastafarian Rastafarian Beliefs: dylan Feels Safe at Home: Yes Gender Identity: Female Assistive Devices: Glasses Review of Systems Psychiatric: + depression, + anhedonia, + abnormal sleep pattern, + change in appetite, + suicidal ideation and + difficulty concentrating; no homicidal ideation, no hallucinations and no substance abuse Physical Exam Psychiatric: Orientation: alert, oriented to person, oriented to place, oriented to time and + guarded Apperance: appropriately dressed and + disheveled Eye Contact: + fair eye contact Motor Behavior: + psychomotor retardation slow, quiet, brief with increased latency of response Affect: + blunted affect Mood: + depressed mood Thought Process: + concrete thought process Thought Content: + cognitive distortions, reality based without delusions and + self deprecation Suicidal Thoughts: denies suicidal plan and denies suicidal intent; + reports suicidal thoughts Homicidal Thoughts: denies homicidal thoughts Hallucinations: no auditory hallucinations and no visual hallucinations Cognition: recent memory grossly intact, remote memory grossly intact, attention grossly intact and language grossly intact Estimated Intelligence: average estimated intelligence Insight: + fair insight Judgment: + fair judgement Vital Signs (Past 24 Hours): Last Vital Signs Temp 36.7 C 01/01/23 06:00 Pulse 69 01/01/23 06:50 Resp 14 01/01/23 06:00 BP 99/65 L 01/01/23 06:50 Pulse Ox 98 12/31/22 20:24 O2 Del Method Room Air 12/31/22 20:24 Exam Statement: A physical exam was performed in the ED for the purposes of medical clearance. I accept that physical as correct and adequate for the purposes of the inpatient physical exam. Results & Data ([facility]) Laboratory Results Laboratory Results - last 24 hr 12/31/22 12/31/22 12/31/22 14:10 14:19 14:19 WBC 6.58 RBC 5.17 Hgb 14.4 Hct 43.1 MCV 83.4 MCH 27.9 MCHC 33.4 RDW Std Deviation 40.1 RDW Coeff of Margo 13.2 Plt Count 213 MPV 9.9 Immature Gran % (Auto) 0.2 Neut % (Auto) 73.0 Lymph % (Auto) 20.8 [place] % (Auto) 5.0 Eos % (Auto) 0.2 Baso % (Auto) 0.8 Neut # (Auto) 4.81 Lymph # (Auto) 1.37 [place] # (Auto) 0.33 Eos # (Auto) 0.01 Baso # (Auto) 0.05 Immature Gran # (Auto) 0.01 Sodium 140 Potassium 3.6 Chloride 101 Carbon Dioxide 29 Anion Gap 10 BUN 19 Creatinine 0.99 Est Cr Clr Drug Dosing 61.7 Est GFR ( Amer) 78.1 Est GFR (Non-Af Amer) 67.4 BUN/Creatinine Ratio 19.2 Glucose 99 Calcium 9.3 Total Bilirubin 0.9 AST 23 ALT 18 Alkaline Phosphatase 77 Total Protein 7.3 Albumin 4.4 Globulin 2.9 Albumin/Globulin Ratio 1.5 TSH Urine Color Yellow Urine Appearance Clear Urine pH 5.5 Ur Specific [place] 1.025 Urine Protein Negative Urine Glucose (UA) Negative Urine Ketones Negative Urine Blood Negative Urine Nitrite Negative Urine Bilirubin Negative Urine Urobilinogen Negative Ur Leukocyte Esterase Negative POC Ur Test Salicylates Urine Opiates Screen Ur Methadone, Qual Acetaminophen Urine Barbiturates Ur Phencyclidine (PCP) U Amphetamin/Meth Scrn MDMA (Ecstasy) Screen U OH-Alprazolam Confrm U Benzodiazepines Scrn 7-Amino Clonazepam Ur Nordiazepam Confirm U OH-ethylflurazepam U Lorazepam Cnf GC/MS U Oxazepam Confm GC/MS Ur Temazepam Confirm U OH-Triazolam Confirm U OH-Midazolam Confirm Ur Cocaine Metabolite U Marijuana (THC) Screen Drug Screen Comment Ethyl Alcohol mg/dL SARS-CoV-2, RNA, NAAT 12/31/22 12/31/22 12/31/22 14:19 14:19 14:19 WBC RBC Hgb Hct MCV MCH MCHC RDW Std Deviation RDW Coeff of Margo Plt Count MPV Immature Gran % (Auto) Neut % (Auto) Lymph % (Auto) [place] % (Auto) Eos % (Auto) Baso % (Auto) Neut # (Auto) Lymph # (Auto) [place] # (Auto) Eos # (Auto) Baso # (Auto) Immature Gran # (Auto) Sodium Potassium Chloride Carbon Dioxide Anion Gap BUN Creatinine Est Cr Clr Drug Dosing Est GFR ( Amer) Est GFR (Non-Af Amer) BUN/Creatinine Ratio Glucose Calcium Total Bilirubin AST ALT Alkaline Phosphatase Total Protein Albumin Globulin Albumin/Globulin Ratio TSH 2.480 Urine Color Urine Appearance Urine pH Ur Specific [place] Urine Protein Urine Glucose (UA) Urine Ketones Urine Blood Urine Nitrite Urine Bilirubin Urine Urobilinogen Ur Leukocyte Esterase POC Ur Test Salicylates < 3.0 L Urine Opiates Screen Ur Methadone, Qual Acetaminophen < 3 L Urine Barbiturates Ur Phencyclidine (PCP) U Amphetamin/Meth Scrn MDMA (Ecstasy) Screen U OH-Alprazolam Confrm U Benzodiazepines Scrn 7-Amino Clonazepam Ur Nordiazepam Confirm U OH-ethylflurazepam U Lorazepam Cnf GC/MS U Oxazepam Confm GC/MS Ur Temazepam Confirm U OH-Triazolam Confirm U OH-Midazolam Confirm Ur Cocaine Metabolite U Marijuana (THC) Screen Drug Screen Comment Ethyl Alcohol mg/dL < 10.0 SARS-CoV-2, RNA, NAAT 12/31/22 12/31/22 12/31/22 14:19 14:19 14:19 WBC RBC Hgb Hct MCV MCH MCHC RDW Std Deviation RDW Coeff of Margo Plt Count MPV Immature Gran % (Auto) Neut % (Auto) Lymph % (Auto) [place] % (Auto) Eos % (Auto) Baso % (Auto) Neut # (Auto) Lymph # (Auto) [place] # (Auto) Eos # (Auto) Baso # (Auto) Immature Gran # (Auto) Sodium Potassium Chloride Carbon Dioxide Anion Gap BUN Creatinine Est Cr Clr Drug Dosing Est GFR ( Amer) Est GFR (Non-Af Amer) BUN/Creatinine Ratio Glucose Calcium Total Bilirubin AST ALT Alkaline Phosphatase Total Protein Albumin Globulin Albumin/Globulin Ratio TSH Urine Color Urine Appearance Urine pH Ur Specific [place] Urine Protein Urine Glucose (UA) Urine Ketones Urine Blood Urine Nitrite Urine Bilirubin Urine Urobilinogen Ur Leukocyte Esterase POC Ur Test Salicylates Urine Opiates Screen Neg Ur Methadone, Qual Neg Acetaminophen Urine Barbiturates Neg Ur Phencyclidine (PCP) Neg U Amphetamin/Meth Scrn Neg MDMA (Ecstasy) Screen Neg U OH-Alprazolam Confrm Pending U Benzodiazepines Scrn Pos H 7-Amino Clonazepam Pending Ur Nordiazepam Confirm Pending U OH-ethylflurazepam Pending U Lorazepam Cnf GC/MS Pending U Oxazepam Confm GC/MS Pending Ur Temazepam Confirm Pending U OH-Triazolam Confirm Pending U OH-Midazolam Confirm Pending Ur Cocaine Metabolite Neg U Marijuana (THC) Screen Neg Drug Screen Comment Pending Ethyl Alcohol mg/dL SARS-CoV-2, RNA, NAAT NEGATIVE 12/31/22 14:33 WBC RBC Hgb Hct MCV MCH MCHC RDW Std Deviation RDW Coeff of Margo Plt Count MPV Immature Gran % (Auto) Neut % (Auto) Lymph % (Auto) [place] % (Auto) Eos % (Auto) Baso % (Auto) Neut # (Auto) Lymph # (Auto) [place] # (Auto) Eos # (Auto) Baso # (Auto) Immature Gran # (Auto) Sodium Potassium Chloride Carbon Dioxide Anion Gap BUN Creatinine Est Cr Clr Drug Dosing Est GFR ( Amer) Est GFR (Non-Af Amer) BUN/Creatinine Ratio Glucose Calcium Total Bilirubin AST ALT Alkaline Phosphatase Total Protein Albumin Globulin Albumin/Globulin Ratio TSH Urine Color Urine Appearance Urine pH Ur Specific [place] Urine Protein Urine Glucose (UA) Urine Ketones Urine Blood Urine Nitrite Urine Bilirubin Urine Urobilinogen Ur Leukocyte Esterase POC Ur Test NEG Salicylates Urine Opiates Screen Ur Methadone, Qual Acetaminophen Urine Barbiturates Ur Phencyclidine (PCP) U Amphetamin/Meth Scrn MDMA (Ecstasy) Screen U OH-Alprazolam Confrm U Benzodiazepines Scrn 7-Amino Clonazepam Ur Nordiazepam Confirm U OH-ethylflurazepam U Lorazepam Cnf GC/MS U Oxazepam Confm GC/MS Ur Temazepam Confirm U OH-Triazolam Confirm U OH-Midazolam Confirm Ur Cocaine Metabolite U Marijuana (THC) Screen Drug Screen Comment Ethyl Alcohol mg/dL SARS-CoV-2, RNA, NAAT Current Inpatient Medications Current Inpatient Medications: Current Inpatient Medications Acetaminophen (Acetaminophen 325 Mg Tab) 650 mg PO Q4H PRN PRN Reason: Headache or Minor Fever Stop: 01/30/23 21:04 Al Hydrox/Mg Hydrox/Simethicone (Aluminum/Magnesium Susp 30 Ml Udc) 30 ml PO Q4H PRN PRN Reason: GI Upset Stop: 01/30/23 21:04 Bismuth Subsalicylate (Bismuth Subsalicylate Liqd 236 Ml) 15 ml PO PRN PRN PRN Reason: Loose Stool Stop: 01/30/23 21:04 Hydroxyzine HCl (Hydroxyzine Hcl 25 Mg Tab) 50 mg PO HSZ PRN PRN Reason: Insomnia Stop: 01/30/23 21:04 Hydroxyzine HCl (Hydroxyzine Hcl 25 Mg Tab) 25 mg PO Q4H PRN PRN Reason: Anxiety Stop: 01/30/23 21:04 Magnesium Hydroxide (Magnesium Hydroxide Susp 30 Ml Udc) 30 ml PO DAILY PRN PRN Reason: Constipation Stop: 01/30/23 21:04 Sertraline HCl (Sertraline Hcl 100 Mg Tablet) 100 mg PO BID AVELINO Stop: 01/30/23 21:27 Last Admin: 12/31/22 22:08 Dose: 100 mg Sodium Chloride (Sodium Chloride 0.65% Na Soln 45 Ml ([place])) 1 - 2 sprays NA PRN PRN PRN Reason: Nasal Dryness/Congestion Stop: 01/30/23 21:04 Trazodone HCl (Trazodone Hcl 50 Mg Tab) 50 mg PO HS AVELINO Stop: 01/30/23 21:59 Last Admin: 12/31/22 22:08 Dose: 50 mg
[2023-01-01] MEDS ORDERED: SERTRALINE HCL 100 MG TABLET PO SCH (09:00)
[2023-01-01] MEDS: SERTRALINE HCL 100 MG TABLET PO SCH ×2 (10:07→21:06)
[2023-01-01] MEDS: CETIRIZINE HCL 10 MG TABLET PO SCH (15:25)
[2023-01-01] MEDS ORDERED: [UNRECOGNIZED DRUG - OTHER] SCH (16:00)
[2023-01-01 18:25] LABS: Vitamin D, 25 Hydrox 42.5 ng/ml (30-100)
[2023-01-01] MEDS ORDERED: ARIPiprazole 5 MG TAB PO SCH (22:00)
[2023-01-01] MEDS: traZODone HCL 50 MG TAB PO SCH (22:27)
[2023-01-02] MEDS: LEVOTHYROXINE SODIUM 25 MCG TABLET PO SCH (07:54)
[2023-01-02] MEDS ORDERED: VORTIOXETINE HYDROBROMIDE PO SCH (09:00)
[2023-01-02] MEDS: SERTRALINE HCL 100 MG TABLET PO SCH ×2 (09:04→22:33)
[2023-01-02] MEDS: MONTELUKAST SODIUM 10 MG TABLET PO SCH (09:04)
[2023-01-02] MEDS: MULTIVITAMIN TAB PO SCH (09:04)
[2023-01-02] MEDS: CETIRIZINE HCL 10 MG TABLET PO SCH (09:04)
[2023-01-02] MEDS: ROSUVASTATIN CALCIUM 10 MG TAB PO SCH (09:04)
[2023-01-02] MEDS: FLUTICASONE PROPIONATE NA SPR 16 GM BTL SCH (09:06)
--- NOTE | 2023-01-02 15:38 | Psychiatric Progress Note ---
Date of Service January 02, 2023 Impression / Recommendations Impression 47 y/o F with recurrent major depression who thinks of her symptoms as treatment-resistant but who really doesn't appear to have used more than 2 antidepressants (both SSRI's) and 2 augmentation strategies (fairly low-dose aripiprazole and now vortioxetine). She currently feels overwhelmed and suicidal. 01/02/2023: Ongoing severe depression with SI. Consents to increasing Trintellix dose for ongoing depression augmentation. Reviewed side effects including but not limited to GI symptoms, BADILLO, muscle stiffness, sexual side effects. (1) Major depressive disorder, recurrent severe without psychotic features: Plan 01/02/2023: Increase Trintellix to 15mg daily, continue sertraline 200mg daily. 01/01/2023: The patient was admitted to the [facility] ([facility] health unit) on q15 min checks (behavioral with suicide precautions) for safety. The patient will participate in group, recreational, and milieu therapies and will be offered additional individual and family sessions as clinically appropriate. Discussed a range of strategies including increasing sertraline above 200 mg/day, using a different augmentation agent (such as bupropion) instead of vortioxetine, increasing the vortioxetine. She elected to pursue increasing the vortioxetine. Pt will need to have family member bring in her vortioxetine from home since it's non-formulary here, and that will be necessary just for her to continue it. Inventory Assets Strengths: supportive relationships, has local supports,voluntary, intelligent, employed Needs: safety and stabilization, medication adjustment, additional coping skills Suicide Risk Level Suicide Risk Level: High-Moderate (q15 min suicide checks) (severe depression with SI but feels safe in the hospital and agrees to let nurses know if she feels unsafe or requires additional support) Risk Factors Assessment Male: No : Yes Do You Have Access To A Gun?: No Health Problems: No Mental Health Diagnoses: Yes Substance Use Disorders: No Previous Attempt: Yes Family History of Suicide: No Previous Psychiatric Hospitalization: Yes Protective Factors Assessment Employed: Yes ([employer]) Stable Relationships: Yes Supportive Family: Yes Interval History Identifying Information DEE DEE MENDIETA is a 47-year-old F who currently lives with and son, has a history of depression, and was admitted on 12/31/22 19:17 on a 201 voluntary commitment for suicidal thoughts. Chief Complaint "I just don't know why the depression has been so bad". Review of Systems Sleep Information Total Hours of Sleep: 6.25 Meal Information Percent Meal Consumed - Breakfast: 90 Percent Meal Consumed - Lunch: 80 Percent Meal Consumed - Dinner: 100 Subjective Subjective Patient was seen & assessed and interval progress reviewed with treatment team nursing and social work. Reports ongoing depression and SI though slightly less intense today as thoughts felt more "fleeting". Interested in increasing the dose of her Trintellix for augmentation of depression, reviewed no FDA approval for augmentation but at least one small review study noting benefits from augmentation to SSRI at doses of 5-20mg per day. Agrees to do CAMS to better understand driving factors behind her suicidal ideation. Has difficulty describing why her depression has been worse noting the last few months she's had really difficult starts to the month and has been struggling to get out of bed, shower, or attend to self-care needs. Physical Exam Psychiatric Orientation: alert and oriented x 3 Apperance: appropriately dressed and + disheveled Eye Contact: + fair eye contact Motor Behavior: + psychomotor retardation slow, quiet, brief with increased latency of response Affect: + blunted affect Mood: + depressed mood Thought Process: + concrete thought process Thought Content: + cognitive distortions, reality based without delusions and + self deprecation Suicidal Thoughts: denies suicidal plan and denies suicidal intent; + reports suicidal thoughts Homicidal Thoughts: denies homicidal thoughts Hallucinations: no auditory hallucinations and no visual hallucinations Cognition: recent memory grossly intact, remote memory grossly intact, attention grossly intact and language grossly intact Estimated Intelligence: average estimated intelligence Insight: + limited insight Judgment: + fair judgement Vital Signs (Past 24 Hours) Last Vital Signs Temp 36.6 C 01/02/23 06:00 Pulse 66 01/02/23 07:04 Resp 16 01/02/23 06:00 BP 107/71 01/02/23 07:04 Pulse Ox 98 12/31/22 20:24 O2 Del Method Room Air 12/31/22 20:24 Results & Data ([facility]) Laboratory Results Laboratory Results - last 24 hr 01/01/23 14:19 Vitamin B12 725 25-OH Vitamin D Total 42.5 Folate 15.78 Current Inpatient Medications Current Inpatient Medications: Current Inpatient Medications Acetaminophen (Acetaminophen 325 Mg Tab) 650 mg PO Q4H PRN PRN Reason: Headache or Minor Fever Stop: 01/30/23 21:04 Al Hydrox/Mg Hydrox/Simethicone (Aluminum/Magnesium Susp 30 Ml Udc) 30 ml PO Q4H PRN PRN Reason: GI Upset Stop: 01/30/23 21:04 Bismuth Subsalicylate (Bismuth Subsalicylate Liqd 236 Ml) 15 ml PO PRN PRN PRN Reason: Loose Stool Stop: 01/30/23 21:04 Cetirizine HCl (Cetirizine Hcl 10 Mg Tablet) 10 mg PO DAILY AVELINO Stop: 01/31/23 14:59 Last Admin: 01/02/23 09:04 Dose: 10 mg Fluticasone Propionate (Fluticasone Propionate Na Spr 16 Gm Btl) 2 sprays NA DAILY AVELINO Stop: 02/01/23 08:59 Last Admin: 01/02/23 09:06 Dose: 2 sprays Hydroxyzine HCl (Hydroxyzine Hcl 25 Mg Tab) 50 mg PO HSZ PRN PRN Reason: Insomnia Stop: 01/30/23 21:04 Hydroxyzine HCl (Hydroxyzine Hcl 25 Mg Tab) 25 mg PO Q4H PRN PRN Reason: Anxiety Stop: 01/30/23 21:04 Levothyroxine Sodium (Levothyroxine Sodium 25 Mcg Tablet) 25 mcg PO DAILYBB AVELINO Stop: 02/01/23 07:59 Last Admin: 01/02/23 07:54 Dose: 25 mcg Magnesium Hydroxide (Magnesium Hydroxide Susp 30 Ml Udc) 30 ml PO DAILY PRN PRN Reason: Constipation Stop: 01/30/23 21:04 Montelukast Sodium (Montelukast Sodium 10 Mg Tablet) 10 mg PO DAILY AVELINO Stop: 02/01/23 08:59 Last Admin: 01/02/23 09:04 Dose: 10 mg Multivitamins (Multivitamin Tab) 1 tab PO QAM AVELINO Stop: 02/01/23 08:59 Last Admin: 01/02/23 09:04 Dose: 1 tab Rosuvastatin Calcium (Rosuvastatin Calcium 10 Mg Tab) 10 mg PO DAILY AVELINO Stop: 02/01/23 08:59 Last Admin: 01/02/23 09:04 Dose: 10 mg Sertraline HCl (Sertraline Hcl 100 Mg Tablet) 100 mg PO BID AVELINO Stop: 01/30/23 21:27 Last Admin: 01/02/23 09:04 Dose: 100 mg Sodium Chloride (Sodium Chloride 0.65% Na Soln 45 Ml ([place])) 1 - 2 sprays NA PRN PRN PRN Reason: Nasal Dryness/Congestion Stop: 01/30/23 21:04 Trazodone HCl (Trazodone Hcl 50 Mg Tab) 50 mg PO HS AVELINO Stop: 01/30/23 21:59 Last Admin: 01/01/23 22:27 Dose: 50 mg Mental Health & Subst Abuse Tx Therapist Name of Therapist: America garcia [facility]
[2023-01-02] MEDS: traZODone HCL 50 MG TAB PO SCH (22:33)
[2023-01-03 06:48] VITALS: O2SAT 99
[2023-01-03] MEDS: LEVOTHYROXINE SODIUM 25 MCG TABLET PO SCH (08:23)
--- NOTE | 2023-01-03 08:58 | Psychiatric Progress Note ---
Date of Service January 03, 2023 Impression / Recommendations Impression 47 y/o F with recurrent major depression who thinks of her symptoms as treatment-resistant but who really doesn't appear to have used more than 2 antidepressants (both SSRI's) and 2 augmentation strategies (fairly low-dose aripiprazole and now vortioxetine). She currently feels overwhelmed and suicidal. 01/03/2023: Ongoing severe depression with SI along with hopelessness. Continuing to explore ways her core beliefs of feeling unlovable and unworthy seem to impact depression as well as how depression makes it harder for her do things which re-enforces her negative core beliefs. Also explored some ACT strategies for coping with her depression. Tolerating higher dose of Trintellix but no benefits seen yet. Remains in need of inpatient level of care due to intensity and severity of her symptoms. (1) Major depressive disorder, recurrent severe without psychotic features: Plan 01/03/2023: Continue current medications and tx plan. 01/02/2023: Increase Trintellix to 15mg daily, continue sertraline 200mg daily. 01/01/2023: The patient was admitted to the [facility] ([facility] unit) on q15 min checks (behavioral with suicide precautions) for safety. The patient will participate in group, recreational, and milieu therapies and will be offered additional individual and family sessions as clinically appropriate. Discussed a range of strategies including increasing sertraline above 200 mg/day, using a different augmentation agent (such as bupropion) instead of vortioxetine, increasing the vortioxetine. She elected to pursue increasing the vortioxetine. Pt will need to have family member bring in her vortioxetine from home since it's non-formulary here, and that will be necessary just for her to continue it. Inventory Assets Strengths: supportive relationships, has local supports,voluntary, intelligent, employed Needs: safety and stabilization, medication adjustment, additional coping skills Suicide Risk Level Suicide Risk Level: High-Moderate (q15 min suicide checks) (severe depression with SI but feels safe in the hospital and agrees to let nurses know if she feels unsafe or requires additional support) Risk Factors Assessment Male: No : Yes Do You Have Access To A Gun?: No Health Problems: No Mental Health Diagnoses: Yes Substance Use Disorders: No Previous Attempt: Yes Family History of Suicide: No Previous Psychiatric Hospitalization: Yes Protective Factors Assessment Employed: Yes ([employer]) Stable Relationships: Yes Supportive Family: Yes Interval History Identifying Information DEE DEE MENDIETA is a 47-year-old F who currently lives with and son, has a history of depression, and was admitted on 12/31/22 19:17 on a 201 voluntary commitment for suicidal thoughts. Chief Complaint "I'm hanging in there but feel really blah". Review of Systems Sleep Information Total Hours of Sleep: 7 Meal Information Percent Meal Consumed - Breakfast: 90 Percent Meal Consumed - Lunch: 80 Percent Meal Consumed - Dinner: 80 Subjective Subjective Patient was seen & assessed and interval progress reviewed with treatment team nursing and social work. Attending groups and last night was feeling a little more hopeful but at other times very tearful. Was proud of herself for taking a shower. Completed CAMS which was notable for severe hopelessness, frustration with herself for not being able to keep up with her chores/work, and high self- hate due to not being able to "do all the things I should be doing". She also reported reasons for dying as her depression, feeling overwhelmed, feeling unable to cope and feeling unloved. Discussed ways to approach some of these negative core beliefs including sense of being unloveable or worthless, especially when she can't do everything she wants to do and worries about letting people down, and challenge cognitive distortions as well as discussing ways to increase hopefulness and ongoing effort to target depression with medication adjustments and coping skills/therapeutic groups which she is finding helpful. Reviewed some ACT strategies as well. Encouraging exercise and she starting walking around the unit today. No side effects from higher Trintellix dose this morning but remains very depressed. Physical Exam Psychiatric Orientation: alert and oriented x 3 Apperance: appropriately dressed and appropriately groomed Eye Contact: + fair eye contact Motor Behavior: + psychomotor retardation Affect: + blunted affect Mood: + depressed mood Thought Process: + concrete thought process Thought Content: + cognitive distortions, reality based without delusions, + hopelessness, + worthlessness, + loneliness and + self deprecation Suicidal Thoughts: denies suicidal plan and denies suicidal intent; + reports suicidal thoughts Homicidal Thoughts: denies homicidal thoughts Hallucinations: no auditory hallucinations and no visual hallucinations Cognition: recent memory grossly intact, remote memory grossly intact, attention grossly intact and language grossly intact Estimated Intelligence: average estimated intelligence Insight: + limited insight Judgment: + fair judgement Vital Signs (Past 24 Hours) Last Vital Signs Temp 36.6 C 01/03/23 06:00 Pulse 56 L 01/03/23 06:00 Resp 18 01/03/23 06:00 BP 100/63 01/03/23 06:48 Pulse Ox 99 01/03/23 06:00 O2 Del Method Room Air 01/03/23 06:00 Results & Data ([facility]) Current Inpatient Medications Current Inpatient Medications: Current Inpatient Medications Acetaminophen (Acetaminophen 325 Mg Tab) 650 mg PO Q4H PRN PRN Reason: Headache or Minor Fever Stop: 01/30/23 21:04 Al Hydrox/Mg Hydrox/Simethicone (Aluminum/Magnesium Susp 30 Ml Udc) 30 ml PO Q4H PRN PRN Reason: GI Upset Stop: 01/30/23 21:04 Bismuth Subsalicylate (Bismuth Subsalicylate Liqd 236 Ml) 15 ml PO PRN PRN PRN Reason: Loose Stool Stop: 01/30/23 21:04 Cetirizine HCl (Cetirizine Hcl 10 Mg Tablet) 10 mg PO DAILY AVELINO Stop: 01/31/23 14:59 Last Admin: 01/02/23 09:04 Dose: 10 mg Fluticasone Propionate (Fluticasone Propionate Na Spr 16 Gm Btl) 2 sprays NA DAILY AVELINO Stop: 02/01/23 08:59 Last Admin: 01/02/23 09:06 Dose: 2 sprays Hydroxyzine HCl (Hydroxyzine Hcl 25 Mg Tab) 50 mg PO HSZ PRN PRN Reason: Insomnia Stop: 01/30/23 21:04 Hydroxyzine HCl (Hydroxyzine Hcl 25 Mg Tab) 25 mg PO Q4H PRN PRN Reason: Anxiety Stop: 01/30/23 21:04 Levothyroxine Sodium (Levothyroxine Sodium 25 Mcg Tablet) 25 mcg PO DAILYBB AVELINO Stop: 02/01/23 07:59 Last Admin: 01/03/23 08:23 Dose: 25 mcg Magnesium Hydroxide (Magnesium Hydroxide Susp 30 Ml Udc) 30 ml PO DAILY PRN PRN Reason: Constipation Stop: 01/30/23 21:04 Montelukast Sodium (Montelukast Sodium 10 Mg Tablet) 10 mg PO DAILY AVELINO Stop: 02/01/23 08:59 Last Admin: 01/02/23 09:04 Dose: 10 mg Multivitamins (Multivitamin Tab) 1 tab PO QAM AVELINO Stop: 02/01/23 08:59 Last Admin: 01/02/23 09:04 Dose: 1 tab Rosuvastatin Calcium (Rosuvastatin Calcium 10 Mg Tab) 10 mg PO DAILY AVELINO Stop: 02/01/23 08:59 Last Admin: 01/02/23 09:04 Dose: 10 mg Sertraline HCl (Sertraline Hcl 100 Mg Tablet) 100 mg PO BID AVELINO Stop: 01/30/23 21:27 Last Admin: 01/02/23 22:33 Dose: 100 mg Sodium Chloride (Sodium Chloride 0.65% Na Soln 45 Ml ([employer])) 1 - 2 sprays NA PRN PRN PRN Reason: Nasal Dryness/Congestion Stop: 01/30/23 21:04 Trazodone HCl (Trazodone Hcl 50 Mg Tab) 50 mg PO HS AVELINO Stop: 01/30/23 21:59 Last Admin: 01/02/23 22:33 Dose: 50 mg Vortioxetine (Vortioxetine Hydrobromide) 1.5 each PO DAILY AVELINO Stop: 02/02/23 08:59 Mental Health & Subst Abuse Tx Therapist Name of Therapist: America garcia [facility]
[2023-01-03] MEDS: CETIRIZINE HCL 10 MG TABLET PO SCH (09:10)
[2023-01-03] MEDS: FLUTICASONE PROPIONATE NA SPR 16 GM BTL SCH (09:10)
[2023-01-03] MEDS: MONTELUKAST SODIUM 10 MG TABLET PO SCH (09:10)
[2023-01-03] MEDS: SERTRALINE HCL 100 MG TABLET PO SCH ×2 (09:11→22:35)
[2023-01-03] MEDS: MULTIVITAMIN TAB PO SCH (09:11)
[2023-01-03] MEDS: ROSUVASTATIN CALCIUM 10 MG TAB PO SCH (09:11)
[2023-01-03] MEDS: VORTIOXETINE HYDROBROMIDE PO SCH (09:11)
[2023-01-03 12:12] LABS: 7-Aminoclonaz, Confirm NEGATIVE ng/mL (<25); Hydro-Alp Ur, GC/MS NEGATIVE ng/mL (<25); Hydroxyethylflurazepam, Conf NEGATIVE ng/mL (<50); Hydroxymidazolam Ur, GC/MS NEGATIVE ng/mL (<50); Hydroxytriazolam NEGATIVE ng/mL (<50); Lorazepam, Ur GC/MS NEGATIVE ng/mL (<50); Nordiazepam, Confirm NEGATIVE ng/mL (<50); Oxazepam Ur, GC/MS NEGATIVE ng/mL (<50); Temazepam, Confirm NEGATIVE ng/mL (<50)
[2023-01-03] MEDS: traZODone HCL 50 MG TAB PO SCH (22:36)
[2023-01-04] MEDS: LEVOTHYROXINE SODIUM 25 MCG TABLET PO SCH (08:21)
[2023-01-04] MEDS: CETIRIZINE HCL 10 MG TABLET PO SCH (08:54)
[2023-01-04] MEDS: FLUTICASONE PROPIONATE NA SPR 16 GM BTL SCH (08:54)
[2023-01-04] MEDS: MONTELUKAST SODIUM 10 MG TABLET PO SCH (08:54)
[2023-01-04] MEDS: ROSUVASTATIN CALCIUM 10 MG TAB PO SCH (08:55)
[2023-01-04] MEDS: MULTIVITAMIN TAB PO SCH (08:55)
[2023-01-04] MEDS: VORTIOXETINE HYDROBROMIDE PO SCH (08:55)
[2023-01-04] MEDS: SERTRALINE HCL 100 MG TABLET PO SCH ×2 (08:55→22:30)
--- NOTE | 2023-01-04 14:29 | Psychiatric Progress Note ---
Date of Service January 04, 2023 Impression / Recommendations Impression 47 y/o F with recurrent major depression who thinks of her symptoms as treatment-resistant but who really doesn't appear to have used more than 2 antidepressants (both SSRI's) and 2 augmentation strategies (fairly low-dose aripiprazole and now vortioxetine). She currently feels overwhelmed and suicidal. 01/04/2023: Ongoing severe depression with SI and hopelessness. SI lessening a bit. Seems to find the social connection and groups very beneficial, discussed importance of continuing to work on coping skills since it will take the medication changes so time to take effect. Increase Trintellix to 20mg daily for maximize augmentation effects. (1) Major depressive disorder, recurrent severe without psychotic features: Plan 01/04/2023: Increase Trintellix to 20mg daily. Continue sertraline 200mg daily. 01/03/2023: Continue current medications and tx plan. 01/02/2023: Increase Trintellix to 15mg daily, continue sertraline 200mg daily. 01/01/2023: The patient was admitted to the [facility] ([facility] mental health unit) on q15 min checks (behavioral with suicide precautions) for safety. The patient will participate in group, recreational, and milieu therapies and will be offered additional individual and family sessions as clinically appropriate. Discussed a range of strategies including increasing sertraline above 200 mg/day, using a different augmentation agent (such as bupropion) instead of vortioxetine, increasing the vortioxetine. She elected to pursue increasing the vortioxetine. Pt will need to have family member bring in her vortioxetine from home since it's non-formulary here, and that will be necessary just for her to continue it. Inventory Assets Strengths: supportive relationships, has local supports,voluntary, intelligent, employed Needs: safety and stabilization, medication adjustment, additional coping skills Suicide Risk Level Suicide Risk Level: High-Moderate (q15 min suicide checks) (severe depression with SI but feels safe in the hospital and agrees to let nurses know if she feels unsafe or requires additional support) Risk Factors Assessment Male: No : Yes Do You Have Access To A Gun?: No Health Problems: No Mental Health Diagnoses: Yes Substance Use Disorders: No Previous Attempt: Yes Family History of Suicide: No Previous Psychiatric Hospitalization: Yes Protective Factors Assessment Employed: Yes ([employer]) Stable Relationships: Yes Supportive Family: Yes Interval History Identifying Information DEE DEE MENDIETA is a 47-year-old F who currently lives with and son, has a history of depression, and was admitted on 12/31/22 19:17 on a 201 voluntary commitment for suicidal thoughts. Chief Complaint "Ok not too much better". Review of Systems Sleep Information Total Hours of Sleep: 6.5 Meal Information Percent Meal Consumed - Breakfast: 100 Percent Meal Consumed - Lunch: 95 Percent Meal Consumed - Dinner: 70 Subjective Subjective Patient was seen & assessed and interval progress reviewed with treatment team nursing and social work. Attending groups and finds these helpful. Continues to feel very depressed, discouraged that she's not feeling any better yet. Discussed option of continuing with Trintellix titration to maximize augmentation dose of 20mg which she would like to do. Continues to have SI but this is lessening. Hasn't spoken with her except briefly and knows her son is still hospitalized but isn't sure how he is doing. 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 Reviewed again option for Wellbutrin, she prefers to stay with the Trintellix. She tried to look at the Feeling Good Workbook but found it quite overwhelming, discussed starting by just reading a few pages at a time. Physical Exam Psychiatric Orientation: alert and oriented x 3 Apperance: appropriately dressed and appropriately groomed Eye Contact: + fair eye contact Motor Behavior: no abnormal motor movements Affect: + blunted affect Mood: + depressed mood Thought Process: + concrete thought process Thought Content: + cognitive distortions, reality based without delusions, + hopelessness, + worthlessness, + loneliness and + self deprecation Suicidal Thoughts: denies suicidal plan and denies suicidal intent; + reports suicidal thoughts Homicidal Thoughts: denies homicidal thoughts Hallucinations: no auditory hallucinations and no visual hallucinations Cognition: recent memory grossly intact, remote memory grossly intact, attention grossly intact and language grossly intact Estimated Intelligence: average estimated intelligence Insight: + limited insight Judgment: + fair judgement Vital Signs (Past 24 Hours) Last Vital Signs Temp 36.6 C 01/04/23 06:41 Pulse 64 01/04/23 06:41 Resp 16 01/04/23 06:41 BP 105/69 01/04/23 06:41 Pulse Ox 99 01/03/23 06:00 O2 Del Method Room Air 01/03/23 06:00 Results & Data ([facility]) Current Inpatient Medications Current Inpatient Medications: Current Inpatient Medications Acetaminophen (Acetaminophen 325 Mg Tab) 650 mg PO Q4H PRN PRN Reason: Headache or Minor Fever Stop: 01/30/23 21:04 Al Hydrox/Mg Hydrox/Simethicone (Aluminum/Magnesium Susp 30 Ml Udc) 30 ml PO Q4H PRN PRN Reason: GI Upset Stop: 01/30/23 21:04 Bismuth Subsalicylate (Bismuth Subsalicylate Liqd 236 Ml) 15 ml PO PRN PRN PRN Reason: Loose Stool Stop: 01/30/23 21:04 Cetirizine HCl (Cetirizine Hcl 10 Mg Tablet) 10 mg PO DAILY AVELINO Stop: 01/31/23 14:59 Last Admin: 01/04/23 08:54 Dose: 10 mg Fluticasone Propionate (Fluticasone Propionate Na Spr 16 Gm Btl) 2 sprays NA DAILY AVELINO Stop: 02/01/23 08:59 Last Admin: 01/04/23 08:54 Dose: 2 sprays Hydroxyzine HCl (Hydroxyzine Hcl 25 Mg Tab) 50 mg PO HSZ PRN PRN Reason: Insomnia Stop: 01/30/23 21:04 Hydroxyzine HCl (Hydroxyzine Hcl 25 Mg Tab) 25 mg PO Q4H PRN PRN Reason: Anxiety Stop: 01/30/23 21:04 Levothyroxine Sodium (Levothyroxine Sodium 25 Mcg Tablet) 25 mcg PO DAILYBB AVELINO Stop: 02/01/23 07:59 Last Admin: 01/04/23 08:21 Dose: 25 mcg Magnesium Hydroxide (Magnesium Hydroxide Susp 30 Ml Udc) 30 ml PO DAILY PRN PRN Reason: Constipation Stop: 01/30/23 21:04 Montelukast Sodium (Montelukast Sodium 10 Mg Tablet) 10 mg PO DAILY AVELINO Stop: 02/01/23 08:59 Last Admin: 01/04/23 08:54 Dose: 10 mg Multivitamins (Multivitamin Tab) 1 tab PO QAM AVELINO Stop: 02/01/23 08:59 Last Admin: 01/04/23 08:55 Dose: 1 tab Rosuvastatin Calcium (Rosuvastatin Calcium 10 Mg Tab) 10 mg PO DAILY AVELINO Stop: 02/01/23 08:59 Last Admin: 01/04/23 08:55 Dose: 10 mg Sertraline HCl (Sertraline Hcl 100 Mg Tablet) 100 mg PO BID AVELINO Stop: 01/30/23 21:27 Last Admin: 01/04/23 08:55 Dose: 100 mg Sodium Chloride (Sodium Chloride 0.65% Na Soln 45 Ml ([place])) 1 - 2 sprays NA PRN PRN PRN Reason: Nasal Dryness/Congestion Stop: 01/30/23 21:04 Trazodone HCl (Trazodone Hcl 50 Mg Tab) 50 mg PO HS AVELINO Stop: 01/30/23 21:59 Last Admin: 01/03/23 22:36 Dose: 50 mg Vortioxetine (Vortioxetine Hydrobromide) 1.5 each PO DAILY AVELINO Stop: 02/02/23 08:59 Last Admin: 01/04/23 08:55 Dose: 1.5 each Mental Health & Subst Abuse Tx Psychiatrist Name of Psychiatrist: Areli Saul Psychiatrist's Date Of Appointment With Psychiatric Provider: 01/08/2023 Time of Appointment with Psychiatrist: 1:20pm Psychiatric Appointment Comment: [address] [place], [place] Therapist Name of Therapist: Domingo Matute Therapist's Date of Therapist Appointment: 01/06/2023, 01/13/2023 Time of Therapist Appointment: 12pm Therapy Appointment Comment: [address], [place] [address] Post Discharge Appointments Primary Care Physician Name Of Family Doctor/PCP: [facility] Time of Appointment with PCP: please follow up as needed Provider Appointment Comment: [address], [place], [place]
[2023-01-04] MEDS: traZODone HCL 50 MG TAB PO SCH (22:30)
[2023-01-05] MEDS: LEVOTHYROXINE SODIUM 25 MCG TABLET PO SCH (08:00)
[2023-01-05] MEDS: CETIRIZINE HCL 10 MG TABLET PO SCH (08:46)
[2023-01-05] MEDS: FLUTICASONE PROPIONATE NA SPR 16 GM BTL SCH (08:46)
[2023-01-05] MEDS: SERTRALINE HCL 100 MG TABLET PO SCH ×2 (08:47→22:45)
[2023-01-05] MEDS: MONTELUKAST SODIUM 10 MG TABLET PO SCH (08:47)
[2023-01-05] MEDS: MULTIVITAMIN TAB PO SCH (08:47)
[2023-01-05] MEDS: ROSUVASTATIN CALCIUM 10 MG TAB PO SCH (08:47)
[2023-01-05] MEDS: VORTIOXETINE HYDROBROMIDE 10 MG TABLET PO SCH (08:48)
--- NOTE | 2023-01-05 17:14 | Psychiatric Progress Note ---
Date of Service January 05, 2023 Impression / Recommendations Impression 47 y/o F with recurrent major depression who thinks of her symptoms as treatment-resistant but who really doesn't appear to have used more than 2 antidepressants (both SSRI's) and 2 augmentation strategies (fairly low-dose aripiprazole and now vortioxetine). She currently feels overwhelmed and suicidal. 01/05/2023: Ongoing severe depression with SI and hopelessness worsened after difficult family meeting as her feels unable to support her with her depression or goals of doing more as a family. SI more intense after meeting. Tolerating higher dose of Trintellix. (1) Major depressive disorder, recurrent severe without psychotic features: Plan 01/05/2023: Continue current medications and tx plan. 01/04/2023: Increase Trintellix to 20mg daily. Continue sertraline 200mg daily. 01/03/2023: Continue current medications and tx plan. 01/02/2023: Increase Trintellix to 15mg daily, continue sertraline 200mg daily. 01/01/2023: The patient was admitted to the [facility] ([facility] mental health unit) on q15 min checks (behavioral with suicide precautions) for safety. The patient will participate in group, recreational, and milieu therapies and will be offered additional individual and family sessions as clinically appropriate. Discussed a range of strategies including increasing sertraline above 200 mg/day, using a different augmentation agent (such as bupropion) instead of vortioxetine, increasing the vortioxetine. She elected to pursue increasing the vortioxetine. Pt will need to have family member bring in her vortioxetine from home since it's non-formulary here, and that will be necessary just for her to continue it. Inventory Assets Strengths: supportive relationships, has local supports,voluntary, intelligent, employed Needs: safety and stabilization, medication adjustment, additional coping skills Suicide Risk Level Suicide Risk Level: High-Moderate (q15 min suicide checks) (severe depression with SI but feels safe in the hospital and agrees to let nurses know if she feels unsafe or requires additional support) Risk Factors Assessment Male: No : Yes Do You Have Access To A Gun?: No Health Problems: No Mental Health Diagnoses: Yes Substance Use Disorders: No Previous Attempt: Yes Family History of Suicide: No Previous Psychiatric Hospitalization: Yes Protective Factors Assessment Employed: Yes ([employer]) Stable Relationships: Yes Supportive Family: Yes Interval History Identifying Information DEE DEE MENDIETA is a 47-year-old F who currently lives with and son, has a history of depression, and was admitted on 12/31/22 19:17 on a 201 voluntary commitment for suicidal thoughts. Chief Complaint "I'm just so frustrated". Review of Systems Sleep Information Total Hours of Sleep: 6.5 Meal Information Percent Meal Consumed - Breakfast: 100 Percent Meal Consumed - Lunch: 100 Percent Meal Consumed - Dinner: 80 Subjective Subjective Patient was seen & assessed and interval progress reviewed with treatment team nursing and social work. Had a difficult family meeting with her which left her feeling frustrated. Described how her is too "burned out to support me" and stresses of balancing her depression along with her children's mental health struggles and her 's disengagement. Discussed ways to try to incorporate more discussion within the family such as by sharing highs and lows over dinner as a way to start having more dialogue. Discussed other places Katherine can find support such as through her evangelical and with her friend who she walks with. No side effects from higher dose of Trintellix. Ongoing SI. Physical Exam Psychiatric Orientation: alert and oriented x 3 Apperance: appropriately dressed and appropriately groomed Eye Contact: + fair eye contact Motor Behavior: no abnormal motor movements Affect: + depressed affect Mood: + depressed mood Thought Process: + concrete thought process Thought Content: + cognitive distortions, reality based without delusions, + hopelessness and + loneliness Suicidal Thoughts: denies suicidal plan and denies suicidal intent; + reports suicidal thoughts Homicidal Thoughts: denies homicidal thoughts Hallucinations: no auditory hallucinations and no visual hallucinations Cognition: recent memory grossly intact, remote memory grossly intact, attention grossly intact and language grossly intact Estimated Intelligence: average estimated intelligence Insight: + limited insight Judgment: + fair judgement Vital Signs (Past 24 Hours) Last Vital Signs Temp 36.8 C 01/05/23 06:46 Pulse 68 01/05/23 06:47 Resp 16 01/05/23 06:46 BP 97/63 L 01/05/23 06:47 Pulse Ox 99 01/03/23 06:00 O2 Del Method Room Air 01/03/23 06:00 Results & Data ([facility]) Current Inpatient Medications Current Inpatient Medications: Current Inpatient Medications Acetaminophen (Acetaminophen 325 Mg Tab) 650 mg PO Q4H PRN PRN Reason: Headache or Minor Fever Stop: 01/30/23 21:04 Last Admin: 01/04/23 22:32 Dose: 650 mg Al Hydrox/Mg Hydrox/Simethicone (Aluminum/Magnesium Susp 30 Ml Udc) 30 ml PO Q4H PRN PRN Reason: GI Upset Stop: 01/30/23 21:04 Bismuth Subsalicylate (Bismuth Subsalicylate Liqd 236 Ml) 15 ml PO PRN PRN PRN Reason: Loose Stool Stop: 01/30/23 21:04 Cetirizine HCl (Cetirizine Hcl 10 Mg Tablet) 10 mg PO DAILY AVELINO Stop: 01/31/23 14:59 Last Admin: 01/05/23 08:46 Dose: 10 mg Fluticasone Propionate (Fluticasone Propionate Na Spr 16 Gm Btl) 2 sprays NA DAILY AVELINO Stop: 02/01/23 08:59 Last Admin: 01/05/23 08:46 Dose: 2 sprays Hydroxyzine HCl (Hydroxyzine Hcl 25 Mg Tab) 50 mg PO HSZ PRN PRN Reason: Insomnia Stop: 01/30/23 21:04 Hydroxyzine HCl (Hydroxyzine Hcl 25 Mg Tab) 25 mg PO Q4H PRN PRN Reason: Anxiety Stop: 01/30/23 21:04 Levothyroxine Sodium (Levothyroxine Sodium 25 Mcg Tablet) 25 mcg PO DAILYBB AVELINO Stop: 02/01/23 07:59 Last Admin: 01/05/23 08:00 Dose: 25 mcg Magnesium Hydroxide (Magnesium Hydroxide Susp 30 Ml Udc) 30 ml PO DAILY PRN PRN Reason: Constipation Stop: 01/30/23 21:04 Montelukast Sodium (Montelukast Sodium 10 Mg Tablet) 10 mg PO DAILY AVELINO Stop: 02/01/23 08:59 Last Admin: 01/05/23 08:47 Dose: 10 mg Multivitamins (Multivitamin Tab) 1 tab PO QAM AVELINO Stop: 02/01/23 08:59 Last Admin: 01/05/23 08:47 Dose: 1 tab Rosuvastatin Calcium (Rosuvastatin Calcium 10 Mg Tab) 10 mg PO DAILY AVLEINO Stop: 02/01/23 08:59 Last Admin: 01/05/23 08:47 Dose: 10 mg Sertraline HCl (Sertraline Hcl 100 Mg Tablet) 100 mg PO BID AVELINO Stop: 01/30/23 21:27 Last Admin: 01/05/23 08:47 Dose: 100 mg Sodium Chloride (Sodium Chloride 0.65% Na Soln 45 Ml ([place])) 1 - 2 sprays NA PRN PRN PRN Reason: Nasal Dryness/Congestion Stop: 01/30/23 21:04 Trazodone HCl (Trazodone Hcl 50 Mg Tab) 50 mg PO HS AVELINO Stop: 01/30/23 21:59 Last Admin: 01/04/23 22:30 Dose: 50 mg Vortioxetine (Vortioxetine Hydrobromide 10 Mg Tablet) 2 each PO DAILY AVELINO Stop: 02/04/23 08:59 Last Admin: 01/05/23 08:48 Dose: 2 each Mental Health & Subst Abuse Tx Psychiatrist Name of Psychiatrist: Areli Saul Psychiatrist's Date Of Appointment With Psychiatric Provider: 01/08/2023 Time of Appointment with Psychiatrist: 1:20pm Psychiatric Appointment Comment: [address] [place], [place] Therapist Name of Therapist: Domingo Matute Therapist's Date of Therapist Appointment: 01/06/2023, 01/13/2023 Time of Therapist Appointment: 12pm Therapy Appointment Comment: [address], [place] [address] Post Discharge Appointments Primary Care Physician Name Of Family Doctor/PCP: Francine [facility] Time of Appointment with PCP: please follow up as needed Provider Appointment Comment: [address], Mikey Alarcon [place]
[2023-01-05] MEDS: traZODone HCL 50 MG TAB PO SCH (22:45)
[2023-01-06] MEDS: LEVOTHYROXINE SODIUM 25 MCG TABLET PO SCH (09:06)
[2023-01-06] MEDS: CETIRIZINE HCL 10 MG TABLET PO SCH (09:06)
[2023-01-06] MEDS: FLUTICASONE PROPIONATE NA SPR 16 GM BTL SCH (09:06)
[2023-01-06] MEDS: MONTELUKAST SODIUM 10 MG TABLET PO SCH (09:06)
[2023-01-06] MEDS: SERTRALINE HCL 100 MG TABLET PO SCH ×2 (09:07→22:27)
[2023-01-06] MEDS: MULTIVITAMIN TAB PO SCH (09:07)
[2023-01-06] MEDS: ROSUVASTATIN CALCIUM 10 MG TAB PO SCH (09:07)
[2023-01-06] MEDS: VORTIOXETINE HYDROBROMIDE 10 MG TABLET PO SCH (09:07)
--- NOTE | 2023-01-06 20:53 | Psychiatric Progress Note ---
Date of Service January 06, 2023 Impression / Recommendations Impression 47 y/o F with recurrent major depression who thinks of her symptoms as treatment-resistant but who really doesn't appear to have used more than 2 antidepressants (both SSRI's) and 2 augmentation strategies (fairly low-dose aripiprazole and now vortioxetine). She currently feels overwhelmed and suicidal. 01/06/2023: Ongoing severe depression but without SI for the first time today, still feels hopeless about severity of depression symptoms but has slight hope that Trintellix may begin to offer benefit at some point. Tolerating higher dose of Trintellix. (1) Major depressive disorder, recurrent severe without psychotic features: Plan 01/06/2023: Continue current medications and tx plan. 01/05/2023: Continue current medications and tx plan. 01/04/2023: Increase Trintellix to 20mg daily. Continue sertraline 200mg daily. 01/03/2023: Continue current medications and tx plan. 01/02/2023: Increase Trintellix to 15mg daily, continue sertraline 200mg daily. 01/01/2023: The patient was admitted to the [facility] ([facility] mental health unit) on q15 min checks (behavioral with suicide precautions) for safety. The patient will participate in group, recreational, and milieu therapies and will be offered additional individual and family sessions as clinically appropriate. Discussed a range of strategies including increasing sertraline above 200 mg/day, using a different augmentation agent (such as bupropion) instead of vortioxetine, increasing the vortioxetine. She elected to pursue increasing the vortioxetine. Pt will need to have family member bring in her vortioxetine from home since it's non-formulary here, and that will be necessary just for her to continue it. Inventory Assets Strengths: supportive relationships, has local supports,voluntary, intelligent, employed Needs: safety and stabilization, medication adjustment, additional coping skills Suicide Risk Level Suicide Risk Level: Moderate (q15 min suicide checks) (severe depression with SI but no SI today and feels safe in the hospital and agrees to let nurses know if she feels unsafe or requires additional support) Suicide Risk Level Comments: readily contracts for safety while here Risk Factors Assessment Male: No : Yes Do You Have Access To A Gun?: No Health Problems: No Mental Health Diagnoses: Yes Substance Use Disorders: No Previous Attempt: Yes Family History of Suicide: No Previous Psychiatric Hospitalization: Yes Protective Factors Assessment Employed: Yes ([employer]) Stable Relationships: Yes Supportive Family: Yes Interval History Identifying Information DEE DEE MENDIETA is a 47-year-old F who currently lives with and son, has a history of depression, and was admitted on 12/31/22 19:17 on a 201 voluntary commitment for suicidal thoughts. Chief Complaint "ok, better than yesterday". Review of Systems Sleep Information Total Hours of Sleep: 6.5 Meal Information Percent Meal Consumed - Breakfast: 90 Percent Meal Consumed - Lunch: 90 Percent Meal Consumed - Dinner: 95 Subjective Subjective Patient was seen & assessed and interval progress reviewed with treatment team nursing and social work. Mood improved from yesterday. Enjoyed talking and processing with the unit counselor as he offered some ideas to help her think about ways to involve her family in more activities together. Denies SI today. No side effects from higher Trintellix dose but also not noticing any benefits yet. Physical Exam Psychiatric Orientation: alert and oriented x 3 Apperance: appropriately dressed and appropriately groomed Eye Contact: + fair eye contact Motor Behavior: no abnormal motor movements Affect: + depressed affect Mood: + depressed mood Thought Process: + concrete thought process Thought Content: + cognitive distortions, reality based without delusions, + hopelessness and + loneliness Suicidal Thoughts: denies suicidal thoughts, denies suicidal plan and denies suicidal intent Homicidal Thoughts: denies homicidal thoughts Hallucinations: no auditory hallucinations and no visual hallucinations Cognition: recent memory grossly intact, remote memory grossly intact, attention grossly intact and language grossly intact Estimated Intelligence: average estimated intelligence Insight: + limited insight Judgment: + fair judgement Vital Signs (Past 24 Hours) Last Vital Signs Temp 36.9 C 01/06/23 06:48 Pulse 74 01/06/23 06:49 Resp 16 01/06/23 06:48 BP 100/66 01/06/23 06:49 Pulse Ox 99 01/03/23 06:00 O2 Del Method Room Air 01/03/23 06:00 Results & Data ([facility]) Current Inpatient Medications Current Inpatient Medications: Current Inpatient Medications Acetaminophen (Acetaminophen 325 Mg Tab) 650 mg PO Q4H PRN PRN Reason: Headache or Minor Fever Stop: 01/30/23 21:04 Last Admin: 01/04/23 22:32 Dose: 650 mg Al Hydrox/Mg Hydrox/Simethicone (Aluminum/Magnesium Susp 30 Ml Udc) 30 ml PO Q4H PRN PRN Reason: GI Upset Stop: 01/30/23 21:04 Bismuth Subsalicylate (Bismuth Subsalicylate Liqd 236 Ml) 15 ml PO PRN PRN PRN Reason: Loose Stool Stop: 01/30/23 21:04 Cetirizine HCl (Cetirizine Hcl 10 Mg Tablet) 10 mg PO DAILY AVELINO Stop: 01/31/23 14:59 Last Admin: 01/06/23 09:06 Dose: 10 mg Fluticasone Propionate (Fluticasone Propionate Na Spr 16 Gm Btl) 2 sprays NA DAILY AVELINO Stop: 02/01/23 08:59 Last Admin: 01/06/23 09:06 Dose: 2 sprays Hydroxyzine HCl (Hydroxyzine Hcl 25 Mg Tab) 50 mg PO HSZ PRN PRN Reason: Insomnia Stop: 01/30/23 21:04 Hydroxyzine HCl (Hydroxyzine Hcl 25 Mg Tab) 25 mg PO Q4H PRN PRN Reason: Anxiety Stop: 01/30/23 21:04 Levothyroxine Sodium (Levothyroxine Sodium 25 Mcg Tablet) 25 mcg PO DAILYBB AVELINO Stop: 02/01/23 07:59 Last Admin: 01/06/23 09:06 Dose: 25 mcg Magnesium Hydroxide (Magnesium Hydroxide Susp 30 Ml Udc) 30 ml PO DAILY PRN PRN Reason: Constipation Stop: 01/30/23 21:04 Montelukast Sodium (Montelukast Sodium 10 Mg Tablet) 10 mg PO DAILY AVELINO Stop: 02/01/23 08:59 Last Admin: 01/06/23 09:06 Dose: 10 mg Multivitamins (Multivitamin Tab) 1 tab PO QAM AVELINO Stop: 02/01/23 08:59 Last Admin: 01/06/23 09:07 Dose: 1 tab Rosuvastatin Calcium (Rosuvastatin Calcium 10 Mg Tab) 10 mg PO DAILY AVELINO Stop: 02/01/23 08:59 Last Admin: 01/06/23 09:07 Dose: 10 mg Sertraline HCl (Sertraline Hcl 100 Mg Tablet) 100 mg PO BID AVELINO Stop: 01/30/23 21:27 Last Admin: 01/06/23 09:07 Dose: 100 mg Sodium Chloride (Sodium Chloride 0.65% Na Soln 45 Ml ([place])) 1 - 2 sprays NA PRN PRN PRN Reason: Nasal Dryness/Congestion Stop: 01/30/23 21:04 Trazodone HCl (Trazodone Hcl 50 Mg Tab) 50 mg PO HS AVELINO Stop: 01/30/23 21:59 Last Admin: 01/05/23 22:45 Dose: 50 mg Vortioxetine (Vortioxetine Hydrobromide 10 Mg Tablet) 2 each PO DAILY AVELINO Stop: 02/04/23 08:59 Last Admin: 01/06/23 09:07 Dose: 2 each Mental Health & Subst Abuse Tx Psychiatrist Name of Psychiatrist: Areli Saul Psychiatrist's Date Of Appointment With Psychiatric Provider: 01/08/2023 Time of Appointment with Psychiatrist: 1:20pm Psychiatric Appointment Comment: [address] [place], [place] Therapist Name of Therapist: Domingo Matute Therapist's Date of Therapist Appointment: 01/06/2023, 01/13/2023 Time of Therapist Appointment: 12pm Therapy Appointment Comment: [address], [place] [address] Post Discharge Appointments Primary Care Physician Name Of Family Doctor/PCP: Francine Johnson Primary [facility] Time of Appointment with PCP: please follow up as needed Provider Appointment Comment: [address], ANDREA Feldman
[2023-01-06] MEDS: traZODone HCL 50 MG TAB PO SCH (22:27)
[2023-01-07] MEDS: LEVOTHYROXINE SODIUM 25 MCG TABLET PO SCH (08:05)
[2023-01-07] MEDS: MULTIVITAMIN TAB PO SCH (08:51)
[2023-01-07] MEDS: FLUTICASONE PROPIONATE NA SPR 16 GM BTL SCH (08:51)
[2023-01-07] MEDS: CETIRIZINE HCL 10 MG TABLET PO SCH (08:51)
[2023-01-07] MEDS: MONTELUKAST SODIUM 10 MG TABLET PO SCH (08:51)
[2023-01-07] MEDS: ROSUVASTATIN CALCIUM 10 MG TAB PO SCH (08:51)
[2023-01-07] MEDS: SERTRALINE HCL 100 MG TABLET PO SCH ×2 (08:52→22:46)
[2023-01-07] MEDS: VORTIOXETINE HYDROBROMIDE 10 MG TABLET PO SCH (08:52)
--- NOTE | 2023-01-07 11:46 | Psychiatric Progress Note ---
Date of Service January 07, 2023 Impression / Recommendations Impression 47 y/o F with recurrent major depression who thinks of her symptoms as treatment-resistant but who really doesn't appear to have used more than 2 antidepressants (both SSRI's) and 2 augmentation strategies (fairly low-dose aripiprazole and now vortioxetine). She currently feels overwhelmed and suicidal. 01/07/2023: Depression starting to lessen a bit with ongoing behavioral activation strategies, group attendance and medication adjustments. Continues to deny SI today. (1) Major depressive disorder, recurrent severe without psychotic features: Plan 01/07/2023: Continue current medications and tx plan. Test script for Trintellix at higher dose sent to pharmacy and no prior authorization needed. 01/06/2023: Continue current medications and tx plan. 01/05/2023: Continue current medications and tx plan. 01/04/2023: Increase Trintellix to 20mg daily. Continue sertraline 200mg daily. 01/03/2023: Continue current medications and tx plan. 01/02/2023: Increase Trintellix to 15mg daily, continue sertraline 200mg daily. 01/01/2023: The patient was admitted to the [facility] ([facility] mental health unit) on q15 min checks (behavioral with suicide precautions) for safety. The patient will participate in group, recreational, and milieu therapies and will be offered additional individual and family sessions as clinically appropriate. Discussed a range of strategies including increasing sertraline above 200 mg/day, using a different augmentation agent (such as bupropion) instead of vortioxetine, increasing the vortioxetine. She elected to pursue increasing the vortioxetine. Pt will need to have family member bring in her vortioxetine from home since it's non-formulary here, and that will be necessary just for her to continue it. Inventory Assets Strengths: supportive relationships, has local supports,voluntary, intelligent, employed Needs: safety and stabilization, medication adjustment, additional coping skills Suicide Risk Level Suicide Risk Level: Moderate (q15 min suicide checks) (severe depression with SI but no SI today and feels safe in the hospital and agrees to let nurses know if she feels unsafe or requires additional support) Risk Factors Assessment Male: No : Yes Do You Have Access To A Gun?: No Health Problems: No Mental Health Diagnoses: Yes Substance Use Disorders: No Previous Attempt: Yes Family History of Suicide: No Previous Psychiatric Hospitalization: Yes Protective Factors Assessment Employed: Yes ([employer]) Stable Relationships: Yes Supportive Family: Yes Interval History Identifying Information DEE DEE MENDIETA is a 47-year-old F who currently lives with and son, has a history of depression, and was admitted on 12/31/22 19:17 on a 201 voluntary commitment for suicidal thoughts. Chief Complaint "I'm pretty goof". Review of Systems Sleep Information Total Hours of Sleep: 6.75 Meal Information Percent Meal Consumed - Breakfast: 85 Percent Meal Consumed - Lunch: 90 Percent Meal Consumed - Dinner: 95 Subjective Subjective Patient was seen & assessed and interval progress reviewed with treatment team nursing and social work. Had some anxiety this morning due to initiation energy of getting going in the morning but has felt "pretty good" since getting going for the day. Denies SI. Attending all groups. Brightens with interactions. No new side effects from medication. Physical Exam Psychiatric Orientation: alert and oriented x 3 Apperance: appropriately dressed and appropriately groomed Eye Contact: good eye contact Motor Behavior: no abnormal motor movements Affect: + constricted affect (but with a few smiles) Mood: + depressed mood and + anxious mood Thought Process: goal directed thought process Thought Content: reality based without delusions Suicidal Thoughts: denies suicidal thoughts, denies suicidal plan and denies suicidal intent Homicidal Thoughts: denies homicidal thoughts Hallucinations: no auditory hallucinations and no visual hallucinations Cognition: recent memory grossly intact, remote memory grossly intact, attention grossly intact and language grossly intact Estimated Intelligence: average estimated intelligence Insight: + fair insight Judgment: + fair judgement Vital Signs (Past 24 Hours) Last Vital Signs Temp 36.7 C 01/07/23 06:28 Pulse 73 01/07/23 06:29 Resp 16 01/07/23 06:28 BP 92/58 L 01/07/23 06:29 Pulse Ox 99 01/03/23 06:00 O2 Del Method Room Air 01/03/23 06:00 Results & Data ([facility]) Current Inpatient Medications Current Inpatient Medications: Current Inpatient Medications Acetaminophen (Acetaminophen 325 Mg Tab) 650 mg PO Q4H PRN PRN Reason: Headache or Minor Fever Stop: 01/30/23 21:04 Last Admin: 01/04/23 22:32 Dose: 650 mg Al Hydrox/Mg Hydrox/Simethicone (Aluminum/Magnesium Susp 30 Ml Udc) 30 ml PO Q4H PRN PRN Reason: GI Upset Stop: 01/30/23 21:04 Bismuth Subsalicylate (Bismuth Subsalicylate Liqd 236 Ml) 15 ml PO PRN PRN PRN Reason: Loose Stool Stop: 01/30/23 21:04 Cetirizine HCl (Cetirizine Hcl 10 Mg Tablet) 10 mg PO DAILY AVELINO Stop: 01/31/23 14:59 Last Admin: 01/07/23 08:51 Dose: 10 mg Fluticasone Propionate (Fluticasone Propionate Na Spr 16 Gm Btl) 2 sprays NA DAILY AVELINO Stop: 02/01/23 08:59 Last Admin: 01/07/23 08:51 Dose: 2 sprays Hydroxyzine HCl (Hydroxyzine Hcl 25 Mg Tab) 50 mg PO HSZ PRN PRN Reason: Insomnia Stop: 01/30/23 21:04 Hydroxyzine HCl (Hydroxyzine Hcl 25 Mg Tab) 25 mg PO Q4H PRN PRN Reason: Anxiety Stop: 01/30/23 21:04 Levothyroxine Sodium (Levothyroxine Sodium 25 Mcg Tablet) 25 mcg PO DAILYBB AVELINO Stop: 02/01/23 07:59 Last Admin: 01/07/23 08:05 Dose: 25 mcg Magnesium Hydroxide (Magnesium Hydroxide Susp 30 Ml Udc) 30 ml PO DAILY PRN PRN Reason: Constipation Stop: 01/30/23 21:04 Montelukast Sodium (Montelukast Sodium 10 Mg Tablet) 10 mg PO DAILY AVELINO Stop: 02/01/23 08:59 Last Admin: 01/07/23 08:51 Dose: 10 mg Multivitamins (Multivitamin Tab) 1 tab PO QAM AVELINO Stop: 02/01/23 08:59 Last Admin: 01/07/23 08:51 Dose: 1 tab Rosuvastatin Calcium (Rosuvastatin Calcium 10 Mg Tab) 10 mg PO DAILY AVELINO Stop: 02/01/23 08:59 Last Admin: 01/07/23 08:51 Dose: 10 mg Sertraline HCl (Sertraline Hcl 100 Mg Tablet) 100 mg PO BID AVELINO Stop: 01/30/23 21:27 Last Admin: 01/07/23 08:52 Dose: 100 mg Sodium Chloride (Sodium Chloride 0.65% Na Soln 45 Ml ([place])) 1 - 2 sprays NA PRN PRN PRN Reason: Nasal Dryness/Congestion Stop: 01/30/23 21:04 Trazodone HCl (Trazodone Hcl 50 Mg Tab) 50 mg PO HS AVELION Stop: 01/30/23 21:59 Last Admin: 01/06/23 22:27 Dose: 50 mg Vortioxetine (Vortioxetine Hydrobromide 10 Mg Tablet) 2 each PO DAILY AVELINO Stop: 02/04/23 08:59 Last Admin: 01/07/23 08:52 Dose: 2 each Mental Health & Subst Abuse Tx Psychiatrist Name of Psychiatrist: Areli Saul Psychiatrist's Date Of Appointment With Psychiatric Provider: 01/08/2023 Time of Appointment with Psychiatrist: 1:20pm Psychiatric Appointment Comment: [address] [place], [place] Therapist Name of Therapist: Domingo Matute Therapist's Date of Therapist Appointment: 01/06/2023, 01/13/2023 Time of Therapist Appointment: 12pm Therapy Appointment [facility] [address] [place] [address] Post Discharge Appointments Primary Care Physician Name Of Family Doctor/PCP: Francine Johnson Primary [facility] Time of Appointment with PCP: please follow up as needed Provider Appointment Comment: [address], [place]key [place]
[2023-01-07] MEDS: traZODone HCL 50 MG TAB PO SCH (22:46)
[2023-01-08 06:39] VITALS: BP 97/66; TEMP 99.5
[2023-01-08] MEDS: LEVOTHYROXINE SODIUM 25 MCG TABLET PO SCH (08:01)
[2023-01-08] MEDS: FLUTICASONE PROPIONATE NA SPR 16 GM BTL SCH (09:04)
[2023-01-08] MEDS: MONTELUKAST SODIUM 10 MG TABLET PO SCH (09:04)
[2023-01-08] MEDS: CETIRIZINE HCL 10 MG TABLET PO SCH (09:04)
[2023-01-08] MEDS: SERTRALINE HCL 100 MG TABLET PO SCH (09:05)
[2023-01-08] MEDS: MULTIVITAMIN TAB PO SCH (09:05)
[2023-01-08] MEDS: VORTIOXETINE HYDROBROMIDE 10 MG TABLET PO SCH (09:05)
[2023-01-08] MEDS: ROSUVASTATIN CALCIUM 10 MG TAB PO SCH (09:05)
--- NOTE | 2023-01-08 09:42 | Discharge Summary ---
Date of Service January 08, 2023 History of Present Illness As part of my review of the medical record, I read the following psychiatric immigration case worker note: "She states that she is really struggling this week and hasn't been able to get out of bed since Wednesday. She admits to having suicidal thoughts with no plan. She is not eating or drinking well. She is not sure what has triggered this, but does state that her son was here recently for a mental health evaluation and was admitted to the [facility]. She believes this may have "exacerbated the issue". She currently takes Sertraline, Trintellix, and Trazodone. Denies past history of suicide attempt, but was admitted to [address] [place] [address] this time last year. Denies A/V hallucinations and HI." "Neema stated she is experiencing thoughts of suicide that have been getting worse over the past few days. Neema stated she has a history of Major Depression and was inpatient on approx. 1 year ago. Neema denies past suicide attempts but did stated that she had thoughts to drive her car recklessly and crash in the past. Neema stated she feels her depression has gotten worse since her son is experiencing "an episode with his mental health and has been at the [facility] since Wednesday." Neema stated her brought her to the ED for evaluation because "I have not been able to get out of bed and not functioning." She stated "I haven't been able to do anything." Neema stated she has been in bed for several days. She stated she has not been showering, not eating, and not going to work. She stated she has lost a few pounds of weight. Neema stated she sleep is okay because of Trazodone. Neema sees Didi Saul at [facility] for medication management. She sees America Matute at [facility] for therapy. She denies HI or aggression. She denies SIB. She denies hallucinations, paranoia, or delusional thinking. She denies any medical issues. She denies legal issues. She denies alcohol or substance use. She denies history of trauma or abuse. Neema is seeking inpatient treatment at this time." and the following psychiatric liaison RN note: "Patient admits to suicidal ideation without a plan. Pt is depressed and was unable to get out of bed for several days. Depression is mostly due to a situational crisis of son who is currently in the [place]igh. ROIs were filled out for Didi Saul at [place], America Matute at [facility], PCP Dr. Johnson, and sOvaldo Davis. Pt is alert and oriented with no fall precautions, although can seem unsteady on her feet at times. Current medications are updated in chart. Pt had a previous stay at [facility] the [facility] 1 year ago in December. Pt does not have a family history of mental illness, but she and her son both suffer from depression. Pt's goal is to get past her severe depression and suicidal ideation. Pt is on a regular diet and ate well for her last two meals. Pt is underweight and states she lost 3 lbs recently. Pt denies any alcohol, substance abuse or cigarette smoking. Pt denies A/V hallucinations, HI, or self harm." Pt reports "a long struggle with depression" at maximal doses of 200 mg/day of sertraline. She says she's never taken anything to augment the response except vortioxetine which she started last summer. She thinks "it's helped, but I still get these relapses." She's done fairly well on trazodone but often 100 mg has seemed excessive and 50 mg inadequate - she's never taken 75 mg. At one point attempted augmentation with aripiprazole but doesn't recall any benefit; thinks the maximal dose has been 5 mg and isn't certain why it wasn't increased or why it was stopped. She's pretty certain she's never taken bupropion or any "mood stabilizer" other than aripiprazole (which was still on her list of current medications despite her saying she stopped it a month ago). Physical Exam Vital Signs (Past 24 Hours) Last Vital Signs Temp 37.5 C 01/08/23 06:36 Pulse 75 01/08/23 06:38 Resp 18 01/08/23 06:36 BP 97/66 L 01/08/23 06:38 Pulse Ox 99 01/03/23 06:00 O2 Del Method Room Air 01/03/23 06:00 See admission H&P and DOD summary. Principal Diagnosis Major Depressive Disorder Psychiatric Data See daily stay summary. In short, patient was engaged with the social/therapeutic milieu of the unit, safety was maintained and the patient was cooperative with care. Medication changes included discontinuation of abilify and increase of Trintellix to 20mg daily for depression augmentation and they tolerated this well. Reviewed use of light therapy to help with seasonal component to her depression. A family session was held and safety plan was completed prior to discharge. She actively and insightfully participated in safety planning and in discussions about ways to seek support and recognizing warning signs and utilizing coping skills. Reviewed mobile apps that could be used for additional ways to have their safety plan and contacts easily available should thoughts of SI re-emerge in the future. Reviewed importance of seeking emergency care should SI intensify, worsen or should they feel unsafe in the future which they agree to do. On the day of discharge she stated her mood was "pretty good" and remained future-oriented including sleeping in her own bed, getting outside, going for walks, seeing her family and pets and engaging in aftercare appointments for psychiatry and therapy. Day of Discharge Assessment Today the patient voices readiness for discharge. They note improvement in mood and anxiety. They deny thoughts of harm to self or others. Thoughts are organized and they are clinically improved from admission. There is no evidence of psychosis. They improved in the hospital with support and medication adjustments. They agree to take medications as prescribed and keep follow-up appointments. At the time of the discharge they are deemed to be stable and appropriate for outpatient level of care. They are not deemed to be at imminent risk of harm to self or others. They are aware of emergency and crisis services. Knows to call 911 or go to nearest emergency care center if in a crisis which cannot be handled as an outpatient. Transition of Care Transition Of Care Record: was reviewed with the patient Advance Directives Advance Directives Information Provided: No Advance Directives: No Mental Health Advance Directive: No Advance Directives on File: No Living Will: No Power of Mammalogist: No Advance Directives Reason:: Declines as Mental Health Visit. Suicide Risk Level Suicide Risk Level Comments: Acute risk is low given improvement in mood and denial of SI, lack of access to lethal means, improvement in sleep and hopefulness. Chronic risk is moderate given some non-modifiable risk factors: prior attempt, prior psychiatric hospitalizations, poor social support but also with protective factors including: employed, sense of responsibility to family and social supports, outpatient care in place, positive coping skills, capacity to establish therapeutic alliance, willingness to engage with treatment and capacity for self-observation. Counseled on ways to reduce acute and chronic risk including engaging with outpatient providers, using safety plan if needed, utilizing supports, taking medication, and using coping skills. Modifiable risk factors of SI and depression were addressed during hospitalization through development of new coping skills, family meeting, safety planning, and medication adjustments. Risk Factors Assessment Male: No : Yes Do You Have Access To A Gun?: No Health Problems: No Mental Health Diagnoses: Yes Substance Use Disorders: No Previous Attempt: Yes Family History of Suicide: No Previous Psychiatric Hospitalization: Yes Hopelessness: No Protective Factors Assessment Employed: Yes ([employer]) Stable Relationships: Yes Supportive Family: Yes Discharge Data Lab Results 12/31/22 12/31/22 12/31/22 14:10 14:19 14:19 WBC 6.58 RBC 5.17 Hgb 14.4 Hct 43.1 MCV 83.4 MCH 27.9 MCHC 33.4 RDW Std Deviation 40.1 RDW Coeff of Margo 13.2 Plt Count 213 MPV 9.9 Immature Gran % (Auto) 0.2 Neut % (Auto) 73.0 Lymph % (Auto) 20.8 [place] % (Auto) 5.0 Eos % (Auto) 0.2 Baso % (Auto) 0.8 Neut # (Auto) 4.81 Lymph # (Auto) 1.37 [place] # (Auto) 0.33 Eos # (Auto) 0.01 Baso # (Auto) 0.05 Immature Gran # (Auto) 0.01 Sodium 140 Potassium 3.6 Chloride 101 Carbon Dioxide 29 Anion Gap 10 BUN 19 Creatinine 0.99 Est Cr Clr Drug Dosing 61.7 Est GFR ( Amer) 78.1 Est GFR (Non-Af Amer) 67.4 BUN/Creatinine Ratio 19.2 Glucose 99 Calcium 9.3 Total Bilirubin 0.9 AST 23 ALT 18 Alkaline Phosphatase 77 Total Protein 7.3 Albumin 4.4 Globulin 2.9 Albumin/Globulin Ratio 1.5 Vitamin B12 25-OH Vitamin D Total Folate TSH Urine Color Yellow Urine Appearance Clear Urine pH 5.5 Ur Specific [place] 1.025 Urine Protein Negative Urine Glucose (UA) Negative Urine Ketones Negative Urine Blood Negative Urine Nitrite Negative Urine Bilirubin Negative Urine Urobilinogen Negative Ur Leukocyte Esterase Negative POC Ur Test Salicylates Urine Opiates Screen Ur Methadone, Qual Acetaminophen Urine Barbiturates Ur Phencyclidine (PCP) U Amphetamin/Meth Scrn MDMA (Ecstasy) Screen U OH-Alprazolam Confrm U Benzodiazepines Scrn 7-Amino Clonazepam Ur Nordiazepam Confirm U OH-ethylflurazepam U Lorazepam Cnf GC/MS U Oxazepam Confm GC/MS Ur Temazepam Confirm U OH-Triazolam Confirm U OH-Midazolam Confirm Ur Cocaine Metabolite U Marijuana (THC) Screen Drug Screen Comment Ethyl Alcohol mg/dL SARS-CoV-2, RNA, NAAT 12/31/22 12/31/22 12/31/22 14:19 14:19 14:19 WBC RBC Hgb Hct MCV MCH MCHC RDW Std Deviation RDW Coeff of Margo Plt Count MPV Immature Gran % (Auto) Neut % (Auto) Lymph % (Auto) [place] % (Auto) Eos % (Auto) Baso % (Auto) Neut # (Auto) Lymph # (Auto) [place] # (Auto) Eos # (Auto) Baso # (Auto) Immature Gran # (Auto) Sodium Potassium Chloride Carbon Dioxide Anion Gap BUN Creatinine Est Cr Clr Drug Dosing Est GFR ( Amer) Est GFR (Non-Af Amer) BUN/Creatinine Ratio Glucose Calcium Total Bilirubin AST ALT Alkaline Phosphatase Total Protein Albumin Globulin Albumin/Globulin Ratio Vitamin B12 25-OH Vitamin D Total Folate TSH 2.480 Urine Color Urine Appearance Urine pH Ur Specific [place] Urine Protein Urine Glucose (UA) Urine Ketones Urine Blood Urine Nitrite Urine Bilirubin Urine Urobilinogen Ur Leukocyte Esterase POC Ur Test Salicylates < 3.0 L Urine Opiates Screen Ur Methadone, Qual Acetaminophen < 3 L Urine Barbiturates Ur Phencyclidine (PCP) U Amphetamin/Meth Scrn MDMA (Ecstasy) Screen U OH-Alprazolam Confrm U Benzodiazepines Scrn 7-Amino Clonazepam Ur Nordiazepam Confirm U OH-ethylflurazepam U Lorazepam Cnf GC/MS U Oxazepam Confm GC/MS Ur Temazepam Confirm U OH-Triazolam Confirm U OH-Midazolam Confirm Ur Cocaine Metabolite U Marijuana (THC) Screen Drug Screen Comment Ethyl Alcohol mg/dL < 10.0 SARS-CoV-2, RNA, NAAT 12/31/22 12/31/22 12/31/22 14:19 14:19 14:19 WBC RBC Hgb Hct MCV MCH MCHC RDW Std Deviation RDW Coeff of Margo Plt Count MPV Immature Gran % (Auto) Neut % (Auto) Lymph % (Auto) [place] % (Auto) Eos % (Auto) Baso % (Auto) Neut # (Auto) Lymph # (Auto) [place] # (Auto) Eos # (Auto) Baso # (Auto) Immature Gran # (Auto) Sodium Potassium Chloride Carbon Dioxide Anion Gap BUN Creatinine Est Cr Clr Drug Dosing Est GFR ( Amer) Est GFR (Non-Af Amer) BUN/Creatinine Ratio Glucose Calcium Total Bilirubin AST ALT Alkaline Phosphatase Total Protein Albumin Globulin Albumin/Globulin Ratio Vitamin B12 25-OH Vitamin D Total Folate TSH Urine Color Urine Appearance Urine pH Ur Specific [place] Urine Protein Urine Glucose (UA) Urine Ketones Urine Blood Urine Nitrite Urine Bilirubin Urine Urobilinogen Ur Leukocyte Esterase POC Ur Test Salicylates Urine Opiates Screen Neg Ur Methadone, Qual Neg Acetaminophen Urine Barbiturates Neg Ur Phencyclidine (PCP) Neg U Amphetamin/Meth Scrn Neg MDMA (Ecstasy) Screen Neg U OH-Alprazolam Confrm NEGATIVE U Benzodiazepines Scrn Pos H 7-Amino Clonazepam NEGATIVE Ur Nordiazepam Confirm NEGATIVE U OH-ethylflurazepam NEGATIVE U Lorazepam Cnf GC/MS NEGATIVE U Oxazepam Confm GC/MS NEGATIVE Ur Temazepam Confirm NEGATIVE U OH-Triazolam Confirm NEGATIVE U OH-Midazolam Confirm NEGATIVE Ur Cocaine Metabolite Neg U Marijuana (THC) Screen Neg Drug Screen Comment SEE NOTE Ethyl Alcohol mg/dL SARS-CoV-2, RNA, NAAT NEGATIVE 12/31/22 01/01/23 14:33 14:19 WBC RBC Hgb Hct MCV MCH MCHC RDW Std Deviation RDW Coeff of Margo Plt Count MPV Immature Gran % (Auto) Neut % (Auto) Lymph % (Auto) [place] % (Auto) Eos % (Auto) Baso % (Auto) Neut # (Auto) Lymph # (Auto) [place] # (Auto) Eos # (Auto) Baso # (Auto) Immature Gran # (Auto) Sodium Potassium Chloride Carbon Dioxide Anion Gap BUN Creatinine Est Cr Clr Drug Dosing Est GFR ( Amer) Est GFR (Non-Af Amer) BUN/Creatinine Ratio Glucose Calcium Total Bilirubin AST ALT Alkaline Phosphatase Total Protein Albumin Globulin Albumin/Globulin Ratio Vitamin B12 725 25-OH Vitamin D Total 42.5 Folate 15.78 TSH Urine Color Urine Appearance Urine pH Ur Specific [place] Urine Protein Urine Glucose (UA) Urine Ketones Urine Blood Urine Nitrite Urine Bilirubin Urine Urobilinogen Ur Leukocyte Esterase POC Ur Test NEG Salicylates Urine Opiates Screen Ur Methadone, Qual Acetaminophen Urine Barbiturates Ur Phencyclidine (PCP) U Amphetamin/Meth Scrn MDMA (Ecstasy) Screen U OH-Alprazolam Confrm U Benzodiazepines Scrn 7-Amino Clonazepam Ur Nordiazepam Confirm U OH-ethylflurazepam U Lorazepam Cnf GC/MS U Oxazepam Confm GC/MS Ur Temazepam Confirm U OH-Triazolam Confirm U OH-Midazolam Confirm Ur Cocaine Metabolite U Marijuana (THC) Screen Drug Screen Comment Ethyl Alcohol mg/dL SARS-CoV-2, RNA, NAAT Hospital Course (1) Major depressive disorder, recurrent severe without psychotic features: Plan 01/07/2023: Continue current medications and tx plan. Test script for Trintellix at higher dose sent to pharmacy and no prior authorization needed. 01/06/2023: Continue current medications and tx plan. 01/05/2023: Continue current medications and tx plan. 01/04/2023: Increase Trintellix to 20mg daily. Continue sertraline 200mg daily. 01/03/2023: Continue current medications and tx plan. 01/02/2023: Increase Trintellix to 15mg daily, continue sertraline 200mg daily. 01/01/2023: The patient was admitted to the [facility] ([facility] mental health unit) on q15 min checks (behavioral with suicide precautions) for safety. The patient will participate in group, recreational, and milieu therapies and will be offered additional individual and family sessions as clinically appropriate. Discussed a range of strategies including increasing sertraline above 200 mg/day, using a different augmentation agent (such as bupropion) instead of vortioxetine, increasing the vortioxetine. She elected to pursue increasing the vortioxetine. Pt will need to have family member bring in her vortioxetine from home since it's non-formulary here, and that will be necessary just for her to continue it. Mental Health & Subst Abuse Tx Psychiatrist Name of Psychiatrist: Areli Saul Psychiatrist's Date Of Appointment With Psychiatric Provider: 01/08/2023 Time of Appointment with Psychiatrist: 1:20pm Psychiatric Appointment Comment: [address] [place], [place] Therapist Name of Therapist: Domingo Sarmiento Giovani Therapist's Date of Therapist Appointment: 01/06/2023, 01/13/2023 Time of Therapist Appointment: 12pm [facility] App[facility]ment [facility] [address] [facility] [address] [place] [address] Post Discharge Appointments Primary Care Physician Name Of Family Doctor/PCP: Francine Johnson Primary Care Time of Appointment with PCP: please follow up as needed Provider Appointment Comment: [address], ANDREA Feldman Discharge Plan Discharge Items Patient Disposition: Home - Self-Care Reason For Visit: ADJUSTMENT DISORDER Discharge Diagnosis: Major Depressive Disorder Activity: Resume your previous activity Non-emergency contact: Primary Care Provider, Psychiatrist and Therapist Call non-emergency contact if: you have any medication questions and your sy mptoms worsen Follow-up/Referrals: Andriy Johnson DO [Primary Care Provider] - Diet: Regular Addtl Attending Provider Instructions: Optional mobile apps we discussed: -Suicide safety plan -Virtual Hope Box SPECIAL CARE INSTRUCTIONS: 1. Follow through with your scheduled aftercare appointments. If unable to keep an appointment, please call to reschedule. 2. Take your medication only as prescribed. Medication should not be changed or stopped without the approval of your doctor. In the event of worsening symptoms or concerns about side effects, contact your doctor immediately. 3. Utilize new healthy coping skills, anger management skills, and stress management skills learned during your hospitalization. Journal feelings and process them with a support person. Identify stressors or situations that may result in relapse, deterioration or inappropriate behaviors and develop a plan to deal with those issues. 4. If your coping skills are ineffective and you are in crisis, contact your outpatient providers for direction. If unable to reach your providers, please call the [facility] CRISIS LINE AT , go to the [facility] walk-in center at [address], [place], or go to the closest Emergency Room. 5. Avoid alcohol and un-prescribed drugs. 6. You have been provided with the Mental Health Advance Directives Pamphlet for your review. 7. Your condition is stable for discharge to outpatient level of care, but recovery is an ongoing process. Ifthoughts to harm yourself or others return, follow the safety plan developed during your stay. Planning for a safe return home includes securing weapons. Our treatment team recommends weaponsbe removed from the home until your outpatient provider reassesses your progress. In rare cases where the items themselvescannot be removed, guns and ammunitionshould be secured separatelyand keys stored by a reliable personoutside of the home. If you were admitted on an involuntary commitment, the police or other legal authorities may be involved in this process. AFTERCARE APPOINTMENTS: * Please call your insurance company prior to your scheduled appointment to confirm your aftercare providers are covered. Take your insurance information to your appointments. WHO TO CALL AND WHEN: Medical Emergencies: For questions or emergencies related to your hospital stay, please contact the Inpatient Behavioral Health Unit at [phone]. A preventive maintenance engineer is on-call 12/04 for the Behavioral Health Unit for emergencies At any time you feel your situation is an emergency, you may also call 911 immediately. Pending Studies at Discharge: No Stand-Alone Forms: My [facility] Medications and DC Order Prescriptions: New Trintellix 20 mg tablet 20 mg PO DAILY 30 Days Qty: 30 0RF Continued montelukast [Singulair] 10 mg tablet 10 mg PO DAILY fluticasone propionate 50 mcg/actuation [place],Suspension 2 spray INTRANASAL DAILY cetirizine [Zyrtec] 10 mg Tablet 10 mg PO DAILY multivitamin Tablet 1 tab PO DAILY trazodone 50 mg tablet 50 mg PO HS PRN (Reason: Insomnia) levothyroxine 25 mcg tablet 25 mcg PO DAILYBB sertraline 100 mg tablet 100 mg PO BID rosuvastatin 10 mg tablet 10 mg PO DAILY Discontinued Trintellix 10 mg tablet 10 mg PO DAILY aripiprazole 5 mg tablet 5 mg PO HS Discharge Orders: Discharge Order (Routine); Ordered 01/08/23 Ordered By: Marilyn Duarte Admission Data Admit Date/Time: 12/31/22 19:17 Attending Provider: Marilyn Duarte Admit Provider: Leonides Hill Primary Care Provider: Andriy Johnson Coding Level of Care Code 78177 D/C day mgmt > 30 min Diagnoses Major depressive disorder, recurrent severe without psychotic features F33.2 Time Spent (min) 45
[2023-01-08 14:40] VITALS: PULSE 69
== END 2023-01-08 19:50 | disposition home or self-care (01) | DRG 885 ==
LOC: ED 13:35 → 3S 19:17 → SUATTDRO 19:17 → 3S 19:38

== ENCOUNTER 2023-03-01 18:12 | Inpatient (IN) ==
[2023-03-01 18:57] LABS: Appearance Urine Clear (Clear); Bilirubin Urine Negative (Negative); Blood Urine Negative (Negative); Color Urine Yellow; Glucose Urine UA Negative (Negative); Ketones Urine Negative (Negative); Leukocyte Esterase Urine Negative (Negative); Nitrite Urine Negative (Negative); Protein Urine Negative (Negative); Specific Gravity Urine 1.007 (1.000-1.030); Urobilinogen Urine Negative (Negative); pH Urine 7.5 (4.5-7.5)
[2023-03-01 18:58] LABS: Basophils # (auto) 0.04 K/uL (0-0.2); Basophils % (auto) 0.6 %; Eosinophils # (auto) 0.02 K/uL (0-0.50); Eosinophils % (auto) 0.3 %; Hemoglobin 14.9 g/dl (12.0-16.0); Immature Granulocytes # (auto) 0.01 K/uL (0.01-0.20); Immature Granulocytes % (auto) 0.2 %; Lymphocytes # (auto) 1.79 K/uL (1.2-3.4); Lymphocytes % (auto) 26.9 %; Mean Corpuscular Hemoglobin 27.8 pg (25.0-34.0); Mean Corpuscular Hgb Conc 33.1 g/dL (32.0-36.0); Mean Platelet Volume 9.9 fL (9.4-12.4); Monocytes # (auto) 0.32 K/uL (0.11-0.59); Monocytes % (auto) 4.8 %; Neutrophils # (auto) 4.48 K/uL (1.40-6.50); Neutrophils % (auto) 67.2 %; Platelet Count 212 K/uL (130-400); RDW Coefficient of Variation 13.5 % (11.5-14.5); RDW Standard Deviation 41.3 fL (36.4-46.3); Red Blood Count 5.36 M/uL (4.20-5.40); White Blood Count 6.66 K/ul (4.8-10.8)
[2023-03-01 19:14] LABS: Albumin Globulin Ratio 1.6 (0.9-2); Albumin Level 4.6 gm/dl (3.4-5.0); BUN Creatinine Ratio 13.8 (10-20); Bilirubin,Total 0.8 mg/dl (0.2-1.0); Creatinine Clr Calc Pharmacy 68.9 ml/min; Est GFR (African American) 91.3 ml/min; Est GFR (Non-African American) 78.8 ml/min; Globulin 2.8 gm/dl (2.5-4.0); Potassium 4.1 mmol/L (3.5-5.1); Total Protein 7.4 gm/dl (6.0-8.3)
[2023-03-01 19:17] LABS: Amphetamines+Metham, Urine Neg (Neg); Barbiturates, Urine Neg (Neg); Benzodiazepine, Urine Neg (Neg); Cocaine, Urine Neg (Neg); MDMA (Ecstacy), Urine Neg (Neg); Methadone, Urine Neg (Neg); Opiate, Urine Neg (Neg); Phencyclidine, Urine Neg (Neg)
[2023-03-01 19:17] LABS: Acetaminophen < 3 ug/ml (10-30); Salicylate < 3.0 mg/dl (3.0-30)
[2023-03-01 19:53] LABS: Pregnancy Test, Urine Negative (Negative)
[2023-03-01] MEDS ORDERED: hydrOXYzine HCl 25 MG TAB PO PRN ×2 (20:14)
[2023-03-01] MEDS ORDERED: BISMUTH SUBSALICYLATE LIQD 236 ML PO PRN (20:14)
[2023-03-01] MEDS ORDERED: SODIUM CHLORIDE 0.65% NA SOLN 45 ML (OCEAN) PRN (20:14)
[2023-03-01] MEDS ORDERED: ALUMINUM/MAGNESIUM SUSP 30 ML UDC PO PRN (20:14)
[2023-03-01] MEDS ORDERED: MAGNESIUM HYDROXIDE SUSP 30 ML UDC PO PRN (20:14)
[2023-03-01] MEDS ORDERED: ACETAMINOPHEN 325 MG TAB PO PRN (20:14)
--- NOTE | 2023-03-01 20:36 | Emergency Department Note ---
Impression & Plan Major depressive disorder, recurrent severe without psychotic features ED Provider Note NAME: DEE DEE MENDIETA AGE: 47 SEX: F : 1975 ARRIVES VIA: Walk-In INFORMANT: Patient, ED PROVIDER(S): Yeyo Mascorro DO CHIEF COMPLAINT: Depression HPI: Patient is a 47-year-old female who presents ER with past medical history of depression. Patient notes that she has a history of severe depression and she has been more depressed over the past week. She has not been getting out of bed. She has not been going to work. She is no longer eating. She notes that she does not want to live any longer but denies any active plan. notes that he cannot get her to do anything. He tried to get her set up with outpatient follow-up with her psychiatrist and has been unsuccessful and she will not leave the house. He was finally able to get her to come into the [facility]. She denies all other complaints. PAST MEDICAL HISTORY:See Below PAST SURGICAL HISTORY:See Below FAMILY HISTORY:See Below SOCIAL HISTORY:See Below HOME MEDICATIONS:See Below ALLERGIES:See Below VITALS:See Below PHYSICAL EXAMINATION: GENERAL: Sitting up in bed, alert, well appearing, well nourished, no distress, non-toxic EYE EXAM: normal conjunctiva. PERRL and EOM's grossly intact. OROPHARYNX: mucous membranes are moist LUNGS: Clear to auscultation. Normal chest wall mechanics HEART: no murmurs, S1 normal and S2 normal ABDOMEN: abdomen soft, non-tender, normo-active bowel sounds, no masses, no rebound or guarding. UPPER EXTREMITIES: upper extremities are grossly normal. LOWER EXTREMITIES: No pitting edema. NEURO EXAM: Normal sensorium, cranial nerves II-XII grossly intact, normal speech, no gross weakness of arms, no gross weakness of legs. PSYCH: Admits to depression and not leaving bed. Denies any suicidal or homicidal ideations. Admits to not wanting to live. MEDICAL DECISION MAKING: Patient is a 47-year-old female who presents ER for above-stated complaint. Blood work was obtained showed no significant leukocytosis or anemia. BMP along with LFTs bilirubin and TSH was unremarkable. UA was clean. negative. Tox negative. Alcohol negative. COVID-negative. Patient was seen evaluated by her psychiatric ambulatory care nurse. History was also obtained from . Patient was excepted to 3 S. on a 201. Triage Nursing notes reviewed. Limited review of prior medical records performed Vital Signs: reviewed and remarkable for no significant abnormalities Differential diagnosis: Mood disorder, infection, hypoglycemia, electrolyte abnormalities, cardiac sources, intracerebral event, toxicologic, trauma, neurologic, as well as other pathologies. ER treatment provided: See below Diagnostics interpreted by me include EKG and cardiac monitoring as listed be low: -ECG: none -Laboratory studies:Interpreted by me as stated above in MDM and shown below. Imaging studies: Xrays: As interpreted by me:none CTs show: none Consultation(s): As described in MDM Procedures:none Critical Care: None Past Med/Surg History Medical History (Updated 03/01/23 @ 20:36 by Yeyo Mascorro DO) Breast cancer (12/06/14) "Left breast mass detected on physical examination Status post mammography and ultrasound followed by biopsy Biopsy 12/06/2014 2:00 biopsy invasive carcinoma grade 2 3:00 biopsy invasive carcinoma grade 2 Status post bilateral mastectomies with left sentinel lymph node biopsy and axillary dissection right sentinel lymph node biopsy 02/25/2015 Right breast benign 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 Two separate primaries 3.0 and 1.5 cm Pathologic stage [id number] stage IIB Oncotype DX score of 32 Status post systemic chemotherapy Taxotere and Cytoxan for 4 cycles Status post completion of radiation therapy 09/25/2015 received 6120 cGy Plan treatment with tamoxifen Status post genetic testing of BRCA1 and BRCA2 negative" On 10/24/15 16:20 Diana Flores wrote "Left breast mass detected on physical examination Status post mammography and ultrasound followed by biopsy Biopsy 12/06/2014 2:00 biopsy invasive carcinoma grade 2 3:00 biopsy invasive carcinoma grade 2 Status post bilateral mastectomies with left sentinel lymph node biopsy and axillary dissection right sentinel lymph node biopsy 02/25/2015 Right breast benign 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 Two separate primaries 3.0 and 1.5 cm Pathologic stage [id number] stage IIB Oncotype DX score of 32 Status post systemic chemotherapy Taxotere and Cytoxan for 4 cycles Status post completion of radiation therapy 09/25/2015 received 6120 cGy Plan treatment with tamoxifen Status post genetic testing of BRCA1 and BRCA2 negative" On 09/30/15 18:37 Diana Flores wrote "Left breast mass detected on physical examination Status post mammography and ultrasound followed by biopsy Biopsy 12/06/2014 2:00 biopsy invasive carcinoma grade 2 3:00 biopsy invasive carcinoma grade 2 Status post bilateral mastectomies with left sentinel lymph node biopsy and axillary dissection right sentinel lymph node biopsy 02/25/2015 Right breast benign 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 Two separate primaries 3.0 and 1.5 cm Pathologic stage [id number] stage IIB Oncotype DX score of 32 Status post systemic chemotherapy Taxotere and Cytoxan for 4 cycles Status post completion of radiation therapy 09/25/2015 received 6120 cGy Plan treatment with tamoxifen" On 09/30/15 16:44 Diana Flores wrote "Left breast mass detected on physical examination Status post mammography and ultrasound followed by biopsy Biopsy 12/06/2014 2:00 biopsy invasive carcinoma grade 2 3:00 biopsy invasive carcinoma grade 2 Status post bilateral mastectomies with left sentinel lymph node biopsy and axillary dissection right sentinel lymph node biopsy 02/25/2015 Right breast benign 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 Pathologic stage [id number] stage IIB Oncotype DX score of 32 Status post systemic chemotherapy Taxotere and Cytoxan for 4 cycles Status post completion of radiation therapy 09/25/2015 received 6120 cGy Plan treatment with tamoxifen" On 09/30/15 16:44 Diana Flores wrote "Left breast mass detected on physical examination Status post mammography and ultrasound followed by biopsy Biopsy 12/06/2014 2:00 biopsy invasive carcinoma grade 2 3:00 biopsy invasive carcinoma grade 2 Status post bilateral mastectomies with left sentinel lymph node biopsy and axillary dissection right sentinel lymph node biopsy 02/25/2015 Right breast benign 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 Pathologic stage [id number] stage IIB Oncotype DX score of 32 Status post systemic chemotherapy Taxotere and Cytoxan for 4 cycles Status post completion of radiation therapy 09/25/2015 received 6120 cGy Plan treatment with tamoxifen" On 09/30/15 16:19 Diana Flores wrote "Left breast mass detected on physical examination Status post mammography and ultrasound followed by biopsy Biopsy 12/06/2014 2:00 biopsy invasive carcinoma grade 2 3:00 biopsy invasive carcinoma grade 2 Status post bilateral mastectomies with left sentinel lymph node biopsy and axillary dissection right sentinel lymph node biopsy 02/25/2015 Right breast benign 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 Pathologic stage [id number] stage IIB Oncotype DX score of 32 Status post systemic chemotherapy Taxotere and Cytoxan for 4 cycles Status post completion of radiation therapy 09/25/2015 received 6120 cGy Plan treatment with tamoxifen" On 09/30/15 16:19 Diana Flores wrote "Left breast mass detected on physical examination Status post mammography and ultrasound followed by biopsy Biopsy 12/06/2014 2:00 biopsy invasive carcinoma grade 2 3:00 biopsy invasive carcinoma grade 2 Status post bilateral mastectomies with left sentinel lymph node biopsy and axillary dissection right sentinel lymph node biopsy 02/25/2015 Right breast benign 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 Pathologic stage [id number] stage IIB Oncotype DX score of 32 Status post systemic chemotherapy Taxotere and Cytoxan for 4 cycles Status post completion of radiation therapy 09/25/2015 received 6120 cGy Plan treatment with tamoxifen" On 07/16/15 16:02 Diana Flores wrote "Left breast mass detected on physical examination Status post mammography and ultrasound followed by biopsy Biopsy 12/06/2014 2:00 biopsy invasive carcinoma grade 2 3:00 biopsy invasive carcinoma grade 2 Status post bilateral mastectomies with left sentinel lymph node biopsy and axillary dissection right sentinel lymph node biopsy 02/25/2015 Right breast benign 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 Pathologic stage [id number] stage IIB Oncotype DX score of 32 Status post systemic chemotherapy Taxotere and Cytoxan for 4 cycles Tamoxifen therapy" Major depressive disorder with current active episode Suicidal ideations Surgical History H/O breast biopsy Social History Smoking Status: Never smoker Preferred Language: Maltese Communication Ability: Effective Pharmacy Helper Required: No Beliefs That Will Affect Care: Holiness Holiness Beliefs: caodaism Feels Safe at Home: Yes Gender Identity: Female Assistive Devices: Glasses Allergies Allergies Allergy/AdvReac Type Severity Reaction Status Date / Time Cephalosporins Allergy Intermediate KEFLEX--CRIS Verified 01/12/22 00:01 SEA/VOMITIN G cephalexin [From Keflex] AdvReac Intermediate NAUSEA/VOMI Verified 01/12/22 00:01 TING Home Meds Home Medications Medication Instructions Recorded Confirmed montelukast 10 mg tablet 10 mg PO DAILY 04/26/19 03/01/23 (Singulair) cetirizine 10 mg tablet (Zyrtec) 10 mg PO DAILY 12/27/21 03/01/23 fluticasone propionate 50 2 spray intranasal DAILY 12/27/21 03/01/23 mcg/actuation nasal spray,suspension multivitamin 1 tab PO DAILY 01/12/22 03/01/23 levothyroxine 25 mcg tablet 25 mcg PO DAILYBB 12/31/22 03/01/23 rosuvastatin 10 mg tablet 10 mg PO DAILY 12/31/22 03/01/23 sertraline 100 mg tablet 100 mg PO BID 12/31/22 03/01/23 trazodone 50 mg tablet 50 mg PO HS PRN Insomnia 12/31/22 03/01/23 vortioxetine 20 mg tablet 20 mg PO DAILY 03/01/23 03/01/23 (Trintellix) Results & Data (ED) Vital Signs Vital Signs - 24 hr 03/01/23 18:12 Temperature 36.8 C Temperature Source Temporal Artery Scan Pulse Rate 74 Respiratory Rate 20 Respiratory Effort / Characteristics Non-Labored Spontaneous Respiratory Depth Normal Blood Pressure 127/86 Blood Pressure Mean 99 Pulse Oximetry 97 Oxygen Delivery Method Room Air Sepsis Recent Fever Within 48 Hours No Sepsis New/Unexplained Change in Mental Status No Sepsis Action Taken by Nursing No Action Required Laboratory Data 03/01/23 18:36 03/01/23 18:36 Lab Results 03/01/23 03/01/23 03/01/23 Range/Units 18:32 18:36 18:36 WBC 6.66 (4.8-10.8) K/ul RBC 5.36 (4.20-5.40) M/uL Hgb 14.9 (12.0-16.0) g/dl Hct 45.0 (37.0-47.0) % MCV 84.0 (80.0-100.0) fL MCH 27.8 (25.0-34.0) pg MCHC 33.1 (32.0-36.0) g/dL RDW Std Deviation 41.3 (36.4-46.3) fL RDW Coeff of Margo 13.5 (11.5-14.5) % Plt Count 212 (130-400) K/uL MPV 9.9 (9.4-12.4) fL Immature Gran % (Auto) 0.2 % Neut % (Auto) 67.2 % Lymph % (Auto) 26.9 % Kidder % (Auto) 4.8 % Eos % (Auto) 0.3 % Baso % (Auto) 0.6 % Neut # (Auto) 4.48 (1.40-6.50) K/uL Lymph # (Auto) 1.79 (1.2-3.4) K/uL Kidder # (Auto) 0.32 (0.11-0.59) K/uL Eos # (Auto) 0.02 (0-0.50) K/uL Baso # (Auto) 0.04 (0-0.2) K/uL Immature Gran # (Auto) 0.01 (0.01-0.20) K/uL Sodium 138 (136-145) mmol/L Potassium 4.1 (3.5-5.1) mmol/L Chloride 101 (98-107) mmol/L Carbon Dioxide 31 (21-32) mmol/L Anion Gap 6 (3-11) BUN 12 (6-23) mg/dl Creatinine 0.87 (0.6-1.2) mg/dl Est Cr Clr Drug Dosing 68.9 ml/min Est GFR ( Amer) 91.3 ml/min Est GFR (Non-Af Amer) 78.8 ml/min BUN/Creatinine Ratio 13.8 (10-20) Glucose 88 (70-99(Fasting)) mg/dl Calcium 10.0 (8.6-10.3) mg/dl Total Bilirubin 0.8 (0.2-1.0) mg/dl AST 21 (13-39) U/L ALT 17 (7-52) U/L Alkaline Phosphatase 86 (34-104) U/L Total Protein 7.4 (6.0-8.3) gm/dl Albumin 4.6 (3.4-5.0) gm/dl Globulin 2.8 (2.5-4.0) gm/dl Albumin/Globulin Ratio 1.6 (0.9-2) TSH (0.300-4.500) uIu/ml Urine Color Urine Appearance (Clear) Urine pH (4.5-7.5) Ur Specific Edwards (1.000-1.030) Urine Protein (Negative) Urine Glucose (UA) (Negative) Urine Ketones (Negative) Urine Blood (Negative) Urine Nitrite (Negative) Urine Bilirubin (Negative) Urine Urobilinogen (Negative) Ur Leukocyte Esterase (Negative) Urine Test (Negative) Salicylates (3.0-30) mg/dl Urine Opiates Screen (Neg) Ur Methadone, Qual (Neg) Acetaminophen (10-30) ug/ml Urine Barbiturates (Neg) Ur Phencyclidine (PCP) (Neg) U Amphetamin/Meth Scrn (Neg) MDMA (Ecstasy) Screen (Neg) U Benzodiazepines Scrn (Neg) Ur Cocaine Metabolite (Neg) U Marijuana (THC) Screen (Neg) Ethyl Alcohol mg/dL (<10.0) mg/dl SARS-CoV-2, RNA, NAAT NEGATIVE (NEGATIVE) 03/01/23 03/01/23 03/01/23 Range/Units 18:36 18:36 19:43 WBC (4.8-10.8) K/ul RBC (4.20-5.40) M/uL Hgb (12.0-16.0) g/dl Hct (37.0-47.0) % MCV (80.0-100.0) fL MCH (25.0-34.0) pg MCHC (32.0-36.0) g/dL RDW Std Deviation (36.4-46.3) fL RDW Coeff of Margo (11.5-14.5) % Plt Count (130-400) K/uL MPV (9.4-12.4) fL Immature Gran % (Auto) % Neut % (Auto) % Lymph % (Auto) % Kidder % (Auto) % Eos % (Auto) % Baso % (Auto) % Neut # (Auto) (1.40-6.50) K/uL Lymph # (Auto) (1.2-3.4) K/uL Kidder # (Auto) (0.11-0.59) K/uL Eos # (Auto) (0-0.50) K/uL Baso # (Auto) (0-0.2) K/uL Immature Gran # (Auto) (0.01-0.20) K/uL Sodium (136-145) mmol/L Potassium (3.5-5.1) mmol/L Chloride (98-107) mmol/L Carbon Dioxide (21-32) mmol/L Anion Gap (3-11) BUN (6-23) mg/dl Creatinine (0.6-1.2) mg/dl Est Cr Clr Drug Dosing ml/min Est GFR ( Amer) ml/min Est GFR (Non-Af Amer) ml/min BUN/Creatinine Ratio (10-20) Glucose (70-99(Fasting)) mg/dl Calcium (8.6-10.3) mg/dl Total Bilirubin (0.2-1.0) mg/dl AST (13-39) U/L ALT (7-52) U/L Alkaline Phosphatase (34-104) U/L Total Protein (6.0-8.3) gm/dl Albumin (3.4-5.0) gm/dl Globulin (2.5-4.0) gm/dl Albumin/Globulin Ratio (0.9-2) TSH 2.216 (0.300-4.500) uIu/ml Urine Color Urine Appearance (Clear) Urine pH (4.5-7.5) Ur Specific Edwards (1.000-1.030) Urine Protein (Negative) Urine Glucose (UA) (Negative) Urine Ketones (Negative) Urine Blood (Negative) Urine Nitrite (Negative) Urine Bilirubin (Negative) Urine Urobilinogen (Negative) Ur Leukocyte Esterase (Negative) Urine Test (Negative) Salicylates < 3.0 L (3.0-30) mg/dl Urine Opiates Screen (Neg) Ur Methadone, Qual (Neg) Acetaminophen < 3 L (10-30) ug/ml Urine Barbiturates (Neg) Ur Phencyclidine (PCP) (Neg) U Amphetamin/Meth Scrn (Neg) MDMA (Ecstasy) Screen (Neg) U Benzodiazepines Scrn (Neg) Ur Cocaine Metabolite (Neg) U Marijuana (THC) Screen (Neg) Ethyl Alcohol mg/dL < 10.0 (<10.0) mg/dl SARS-CoV-2, RNA, NAAT (NEGATIVE) 03/01/23 03/01/23 03/01/23 Range/Units 19:44 Unknown Unknown WBC (4.8-10.8) K/ul RBC (4.20-5.40) M/uL Hgb (12.0-16.0) g/dl Hct (37.0-47.0) % MCV (80.0-100.0) fL MCH (25.0-34.0) pg MCHC (32.0-36.0) g/dL RDW Std Deviation (36.4-46.3) fL RDW Coeff of Margo (11.5-14.5) % Plt Count (130-400) K/uL MPV (9.4-12.4) fL Immature Gran % (Auto) % Neut % (Auto) % Lymph % (Auto) % Kidder % (Auto) % Eos % (Auto) % Baso % (Auto) % Neut # (Auto) (1.40-6.50) K/uL Lymph # (Auto) (1.2-3.4) K/uL Kidder # (Auto) (0.11-0.59) K/uL Eos # (Auto) (0-0.50) K/uL Baso # (Auto) (0-0.2) K/uL Immature Gran # (Auto) (0.01-0.20) K/uL Sodium (136-145) mmol/L Potassium (3.5-5.1) mmol/L Chloride (98-107) mmol/L Carbon Dioxide (21-32) mmol/L Anion Gap (3-11) BUN (6-23) mg/dl Creatinine (0.6-1.2) mg/dl Est Cr Clr Drug Dosing ml/min Est GFR ( Amer) ml/min Est GFR (Non-Af Amer) ml/min BUN/Creatinine Ratio (10-20) Glucose (70-99(Fasting)) mg/dl Calcium (8.6-10.3) mg/dl Total Bilirubin (0.2-1.0) mg/dl AST (13-39) U/L ALT (7-52) U/L Alkaline Phosphatase (34-104) U/L Total Protein (6.0-8.3) gm/dl Albumin (3.4-5.0) gm/dl Globulin (2.5-4.0) gm/dl Albumin/Globulin Ratio (0.9-2) TSH (0.300-4.500) uIu/ml Urine Color Yellow Urine Appearance Clear (Clear) Urine pH 7.5 (4.5-7.5) Ur Specific Edwards 1.007 (1.000-1.030) Urine Protein Negative (Negative) Urine Glucose (UA) Negative (Negative) Urine Ketones Negative (Negative) Urine Blood Negative (Negative) Urine Nitrite Negative (Negative) Urine Bilirubin Negative (Negative) Urine Urobilinogen Negative (Negative) Ur Leukocyte Esterase Negative (Negative) Urine Test Negative (Negative) Salicylates (3.0-30) mg/dl Urine Opiates Screen Neg (Neg) Ur Methadone, Qual Neg (Neg) Acetaminophen (10-30) ug/ml Urine Barbiturates Neg (Neg) Ur Phencyclidine (PCP) Neg (Neg) U Amphetamin/Meth Scrn Neg (Neg) MDMA (Ecstasy) Screen Neg (Neg) U Benzodiazepines Scrn Neg (Neg) Ur Cocaine Metabolite Neg (Neg) U Marijuana (THC) Screen Neg (Neg) Ethyl Alcohol mg/dL (<10.0) mg/dl SARS-CoV-2, RNA, NAAT (NEGATIVE) Discharge Plan Visit Data Chief Complaint: Mental Health Evaluation Stated Complaint: MENTAL HEALTH CRISIS ED Provider: Yeyo Mascorro Discharge Problem: Major depressive disorder, recurrent severe without psychotic features Forms Stand Alone Forms: My [facility], Suicide Prevention Resources Prescriptions Prescriptions: No Action montelukast [Singulair] 10 mg tablet 10 mg PO DAILY fluticasone propionate 50 mcg/actuation [place],Suspension 2 spray INTRANASAL DAILY cetirizine [Zyrtec] 10 mg Tablet 10 mg PO DAILY multivitamin Tablet 1 tab PO DAILY trazodone 50 mg tablet 50 mg PO HS PRN (Reason: Insomnia) levothyroxine 25 mcg tablet 25 mcg PO DAILYBB sertraline 100 mg tablet 100 mg PO BID rosuvastatin 10 mg tablet 10 mg PO DAILY Trintellix 20 mg Tablet 20 mg PO DAILY Referrals Referrals: Andriy Johnson DO [Primary Care Provider] -
[2023-03-01] MEDS ORDERED: SERTRALINE HCL 100 MG TABLET PO SCH (21:00)
[2023-03-01 21:33] VITALS: O2SAT 98
[2023-03-01] MEDS: traZODone HCL 50 MG TAB PO SCH (22:40)
[2023-03-02] MEDS ORDERED: traZODone HCL 50 MG TAB PO PRN (08:34)
[2023-03-02] MEDS: FLUTICASONE PROPIONATE NA SPR 16 GM BTL SCH (08:57)
[2023-03-02] MEDS: MULTIVITAMIN TAB PO SCH (08:58)
[2023-03-02] MEDS: ROSUVASTATIN CALCIUM 10 MG TAB PO SCH (08:58)
[2023-03-02] MEDS: CETIRIZINE HCL 10 MG TABLET PO SCH (08:58)
[2023-03-02] MEDS: MONTELUKAST SODIUM 10 MG TABLET PO SCH (08:58)
[2023-03-02] MEDS: SERTRALINE HCL 100 MG TABLET PO SCH ×2 (08:59→21:21)
--- NOTE | 2023-03-02 12:18 | History & Physical ---
Date of Service March 02, 2023 Impression / Recommendations Wilbur Murphy is a 47 year old woman with a history of MDD and BÁRBARA who was admitted for worsening depression leading to difficulty attending to ADLs, missing work and unable to get out of bed with weight loss and SI. Diagnostically consistent with exacerbation of major depressive disorder. She is deemed in need of psychiatric hospitalization for diagnostic clarification, safety and stabilization, medication management and development of further coping skills. Discussed medication treatment options in detail including SSRIs, SNRIs, Wellbutrin and augmentation strategies including mood stabilizers/antipsychotics. Discussed risks, benefits and alternatives. Patient would like to start and consented to lamictal for depression augmentation as well as starting Wellbutrin for MDD. Reviewed side effects including but not limited to: elevated HR/BP, insomnia, decreased appetite, lowered seizure threshold and confirmed no history of eating disorder for Wellbutrin; as well as potential for fatal toxic rash and need to follow slow titration, to stop immediately and seek medical treatment if rash occurs and to restart at initial dose if ever misses more than 3 days of doses for lamictal. (1) Major depressive disorder, recurrent severe without psychotic features: (2) Suicidal ideations: Plan 03/02/2023: The patient was admitted to the [facility] ([facility] mental health unit) on q15 min checks (behavioral with suicide precautions) for safety. The patient will participate in group, recreational, and milieu therapies and will be offered additional individual and family sessions as clinically appropriate. -Start Wellbutrin XL 150mg -Start lamictal 25mg po HS -Stop Trintellix -Continue sertraline 100mg BID and trazodone 50mg hs prn for insomnia Inventory Assets Strengths: supportive relationships, willing to get treatment Needs: safety and stabilization, medication adjustment, additional coping skills, increased outpatient services Suicide Risk Level Suicide Risk Level: High-Moderate (q15 min suicide checks) (severe depression with SI prior to admission but feels safe in the hospital, able to safety contract and agrees to let nursing/staff know should they develop plan, intent or feel unable to remain safe.) Suicide Risk Level Comments: Risk Factors Assessment Male: No : Yes Do You Have Access To A Gun?: No Health Problems: Yes Mental Health Diagnoses: Yes Substance Use Disorders: No Previous Attempt: No Family History of Suicide: No Previous Psychiatric Hospitalization: Yes Protective Factors Assessment Restoration Beliefs: Yes : Yes Responsible for Young Children: No Employed: Yes Stable Relationships: Yes Supportive Family: Yes Good Rapport with Provider: Yes Psychiatric History Identifying Data DEE DEE MENDIETA is a 47-year-old F who currently lives in [facility] with her and sons, has a history of depression and anxiety, and was admitted on 03/01/23 20:14 on a 201 voluntary commitment for severe depression with inability to function or attend to ADLs and SI. Chief Complaint "I just started spiraling down". History of Present Illness Katherine presented to the hospital with her for worsening depression. Since her last admission in December she recalls starting to feel better and felt good for most of January but then at the beginning of February she started to become very depressed again. There were some increased stressors related to her work starting in early February and she has been considering asking for a divorce. She been increasingly depressed over the last week including anhedonia, lack of motivation, has been unable to get out of bed, unable to make herself any meals so has been losing weight, hopelessness, decreased psychomotor activity and SI. She feels like her body "flipped like a light switch" back to severe depression. She saw Didi Saul last week and was going to start on a new medication, lamictal, but was too depressed to get to the pharmacy to pick this up because "I don't function when I get like this". Past Psychiatric History Current Psychiatric Diagnosis: MDD Outpatient Services: Didi Saul at [place], [place] at [facility] Previous Psych Admissions: [facility] in December 2021, [facility] December 2022 Do You Have Access To A Gun?: No History of Previous Suicide Attempt: No Past Medication Trials: Paroxetine in which only stopped as wanted to get , lorazepam prn sleep, sertraline started a few years ago after completed breast CA treatment (which was sucessful but "I just fell apart'); augmentation with abilify with no noticeable benefit Past Head Trauma/Neuro History History of Concussion/Seizure: No Allergies Allergy/AdvReac Type Severity Reaction Status Date / Time Cephalosporins Allergy Intermediate KEFLEX--CRIS Verified 01/12/22 00:01 SEA/VOMITIN G cephalexin [From Keflex] AdvReac Intermediate NAUSEA/VOMI Verified 01/12/22 00:01 TING Home Medications Medication Instructions Recorded Confirmed Type montelukast 10 mg tablet 10 mg PO DAILY 04/26/19 03/01/23 History (Singulair) cetirizine 10 mg tablet (Zyrtec) 10 mg PO DAILY 12/27/21 03/01/23 History fluticasone propionate 50 2 spray intranasal DAILY 12/27/21 03/01/23 History mcg/actuation nasal spray,suspension multivitamin 1 tab PO DAILY 01/12/22 03/01/23 History levothyroxine 25 mcg tablet 25 mcg PO DAILYBB 12/31/22 03/01/23 History rosuvastatin 10 mg tablet 10 mg PO DAILY 12/31/22 03/01/23 History sertraline 100 mg tablet 100 mg PO BID 12/31/22 03/01/23 History trazodone 50 mg tablet 50 mg PO HS PRN Insomnia 12/31/22 03/01/23 History vortioxetine 20 mg tablet 20 mg PO DAILY 03/01/23 03/01/23 History (Trintellix) Family History Family History of: Depression (son) Alcohol History Hx of Alcohol Use Over the Past 12 Months: No AUDIT Total Score: 0 Smoking Use Have You Smoked or Used Tobacco Products in the Last 30 Days: No Smoking Status: Never smoker Substance History Hx of Prescription Med Misuse Over the Past 12 Months: No Hx of Over the Counter Med Misuse Over the Past 12 Months: No Hx of Inhalent Misuse Over the Past 12 Months: No Hx of Organic Substance Use Over the Past 12 Months: No Hx of Illegal Substances/Street Drug Use Over Past 12 Months: No Problems as a Result of Past Substance Use: None Identified Personal History Living Arrangements: Home Highest Grade Completed: College Employment Status: [employer] Employed Marital Status: Number Of Children: 2 Beliefs That Will Affect Care: Restoration Hx Legal Problems: No Hx Traumatic Life Events: No Patient History Medical History (Updated 03/02/23 @ 17:29 by Marilyn Duarte MD) Breast cancer (12/06/14) "Left breast mass detected on physical examination Status post mammography and ultrasound followed by biopsy Biopsy 12/06/2014 2:00 biopsy invasive carcinoma grade 2 3:00 biopsy invasive carcinoma grade 2 Status post bilateral mastectomies with left sentinel lymph node biopsy and axillary dissection right sentinel lymph node biopsy 02/25/2015 Right breast benign 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 Two separate primaries 3.0 and 1.5 cm Pathologic stage [id number] stage IIB Oncotype DX score of 32 Status post systemic chemotherapy Taxotere and Cytoxan for 4 cycles Status post completion of radiation therapy 09/25/2015 received 6120 cGy Plan treatment with tamoxifen Status post genetic testing of BRCA1 and BRCA2 negative" On 10/24/15 16:20 Diana Flores wrote "Left breast mass detected on physical examination Status post mammography and ultrasound followed by biopsy Biopsy 12/06/2014 2:00 biopsy invasive carcinoma grade 2 3:00 biopsy invasive carcinoma grade 2 Status post bilateral mastectomies with left sentinel lymph node biopsy and axillary dissection right sentinel lymph node biopsy 02/25/2015 Right breast benign 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 Two separate primaries 3.0 and 1.5 cm Pathologic stage [id number] stage IIB Oncotype DX score of 32 Status post systemic chemotherapy Taxotere and Cytoxan for 4 cycles Status post completion of radiation therapy 09/25/2015 received 6120 cGy Plan treatment with tamoxifen Status post genetic testing of BRCA1 and BRCA2 negative" On 09/30/15 18:37 Diana Flores wrote "Left breast mass detected on physical examination Status post mammography and ultrasound followed by biopsy Biopsy 12/06/2014 2:00 biopsy invasive carcinoma grade 2 3:00 biopsy invasive carcinoma grade 2 Status post bilateral mastectomies with left sentinel lymph node biopsy and axillary dissection right sentinel lymph node biopsy 02/25/2015 Right breast benign 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 Two separate primaries 3.0 and 1.5 cm Pathologic stage [id number] stage IIB Oncotype DX score of 32 Status post systemic chemotherapy Taxotere and Cytoxan for 4 cycles Status post completion of radiation therapy 09/25/2015 received 6120 cGy Plan treatment with tamoxifen" On 09/30/15 16:44 Diana Flores wrote "Left breast mass detected on physical examination Status post mammography and ultrasound followed by biopsy Biopsy 12/06/2014 2:00 biopsy invasive carcinoma grade 2 3:00 biopsy invasive carcinoma grade 2 Status post bilateral mastectomies with left sentinel lymph node biopsy and axillary dissection right sentinel lymph node biopsy 02/25/2015 Right breast benign 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 Pathologic stage [id number] stage IIB Oncotype DX score of 32 Status post systemic chemotherapy Taxotere and Cytoxan for 4 cycles Status post completion of radiation therapy 09/25/2015 received 6120 cGy Plan treatment with tamoxifen" On 09/30/15 16:44 Diana Flores wrote "Left breast mass detected on physical examination Status post mammography and ultrasound followed by biopsy Biopsy 12/06/2014 2:00 biopsy invasive carcinoma grade 2 3:00 biopsy invasive carcinoma grade 2 Status post bilateral mastectomies with left sentinel lymph node biopsy and axillary dissection right sentinel lymph node biopsy 02/25/2015 Right breast benign 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 Pathologic stage [id number] stage IIB Oncotype DX score of 32 Status post systemic chemotherapy Taxotere and Cytoxan for 4 cycles Status post completion of radiation therapy 09/25/2015 received 6120 cGy Plan treatment with tamoxifen" On 09/30/15 16:19 Diana Flores wrote "Left breast mass detected on physical examination Status post mammography and ultrasound followed by biopsy Biopsy 12/06/2014 2:00 biopsy invasive carcinoma grade 2 3:00 biopsy invasive carcinoma grade 2 Status post bilateral mastectomies with left sentinel lymph node biopsy and axillary dissection right sentinel lymph node biopsy 02/25/2015 Right breast benign 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 Pathologic stage [id number] stage IIB Oncotype DX score of 32 Status post systemic chemotherapy Taxotere and Cytoxan for 4 cycles Status post completion of radiation therapy 09/25/2015 received 6120 cGy Plan treatment with tamoxifen" On 09/30/15 16:19 Diana Flores wrote "Left breast mass detected on physical examination Status post mammography and ultrasound followed by biopsy Biopsy 12/06/2014 2:00 biopsy invasive carcinoma grade 2 3:00 biopsy invasive carcinoma grade 2 Status post bilateral mastectomies with left sentinel lymph node biopsy and axillary dissection right sentinel lymph node biopsy 02/25/2015 Right breast benign 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 Pathologic stage [id number] stage IIB Oncotype DX score of 32 Status post systemic chemotherapy Taxotere and Cytoxan for 4 cycles Status post completion of radiation therapy 09/25/2015 received 6120 cGy Plan treatment with tamoxifen" On 07/16/15 16:02 Diana Flores wrote "Left breast mass detected on physical examination Status post mammography and ultrasound followed by biopsy Biopsy 12/06/2014 2:00 biopsy invasive carcinoma grade 2 3:00 biopsy invasive carcinoma grade 2 Status post bilateral mastectomies with left sentinel lymph node biopsy and axillary dissection right sentinel lymph node biopsy 02/25/2015 Right breast benign 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 Pathologic stage [id number] stage IIB Oncotype DX score of 32 Status post systemic chemotherapy Taxotere and Cytoxan for 4 cycles Tamoxifen therapy" Major depressive disorder with current active episode Suicidal ideations Surgical History H/O breast biopsy Social History Smoking Status: Never smoker Preferred Language: Indonesian Communication Ability: Effective [employer] Required: No Beliefs That Will Affect Care: Restoration Restoration Beliefs: dylan Feels Safe at Home: Yes Gender Identity: Female Assistive Devices: Glasses Review of Systems Review of Systems: All systems reviewed & are unremarkable except as noted in HPI & below Physical Exam Psychiatric: Orientation: alert and oriented x 3 Apperance: appropriately dressed and appropriately groomed Eye Contact: + fair eye contact Motor Behavior: + psychomotor retardation Speech: normal rate/rhythm/volume of speech Affect: + depressed affect and + anxious affect Mood: + depressed mood and + anxious mood Thought Process: + circumstantial thought process Thought Content: reality based without delusions, + hopelessness and + worthlessness Suicidal Thoughts: denies suicidal plan and denies suicidal intent; + reports suicidal thoughts (intermittent thoughts ) Homicidal Thoughts: denies homicidal thoughts Hallucinations: no auditory halluci nations and no visual hallucinations Cognition: recent memory grossly intact, remote memory grossly intact, attention grossly intact and language grossly intact Estimated Intelligence: consistent with education level Insight: + fair insight Judgment: + limited judgement Vital Signs (Past 24 Hours): Last Vital Signs Temp 36.5 C 03/02/23 06:33 Pulse 71 03/02/23 06:34 Resp 16 03/02/23 06:33 BP 93/59 L 03/02/23 06:34 Pulse Ox 98 03/01/23 21:03 O2 Del Method Room Air 03/01/23 21:03 Exam Statement: A physical exam was performed in the ED by Dr. Mascorro for the purposes of medical clearance. I accept that physical as correct and adequate for the purposes of the inpatient physical exam. Results & Data ([facility]) Laboratory Results Laboratory Results - last 24 hr 03/01/23 03/01/23 03/01/23 18:32 18:36 18:36 WBC 6.66 RBC 5.36 Hgb 14.9 Hct 45.0 MCV 84.0 MCH 27.8 MCHC 33.1 RDW Std Deviation 41.3 RDW Coeff of Margo 13.5 Plt Count 212 MPV 9.9 Immature Gran % (Auto) 0.2 Neut % (Auto) 67.2 Lymph % (Auto) 26.9 Tyler % (Auto) 4.8 Eos % (Auto) 0.3 Baso % (Auto) 0.6 Neut # (Auto) 4.48 Lymph # (Auto) 1.79 Tyler # (Auto) 0.32 Eos # (Auto) 0.02 Baso # (Auto) 0.04 Immature Gran # (Auto) 0.01 Sodium 138 Potassium 4.1 Chloride 101 Carbon Dioxide 31 Anion Gap 6 BUN 12 Creatinine 0.87 Est Cr Clr Drug Dosing 68.9 Est GFR ( Amer) 91.3 Est GFR (Non-Af Amer) 78.8 BUN/Creatinine Ratio 13.8 Glucose 88 Calcium 10.0 Total Bilirubin 0.8 AST 21 ALT 17 Alkaline Phosphatase 86 Total Protein 7.4 Albumin 4.6 Globulin 2.8 Albumin/Globulin Ratio 1.6 TSH Urine Color Urine Appearance Urine pH Ur Specific Redwood Urine Protein Urine Glucose (UA) Urine Ketones Urine Blood Urine Nitrite Urine Bilirubin Urine Urobilinogen Ur Leukocyte Esterase Urine Test Salicylates Urine Opiates Screen Ur Methadone, Qual Acetaminophen Urine Barbiturates Ur Phencyclidine (PCP) U Amphetamin/Meth Scrn MDMA (Ecstasy) Screen U Benzodiazepines Scrn Ur Cocaine Metabolite U Marijuana (THC) Screen Ethyl Alcohol mg/dL SARS-CoV-2, RNA, NAAT NEGATIVE 03/01/23 03/01/23 03/01/23 18:36 18:36 19:43 WBC RBC Hgb Hct MCV MCH MCHC RDW Std Deviation RDW Coeff of Margo Plt Count MPV Immature Gran % (Auto) Neut % (Auto) Lymph % (Auto) Tyler % (Auto) Eos % (Auto) Baso % (Auto) Neut # (Auto) Lymph # (Auto) Tyler # (Auto) Eos # (Auto) Baso # (Auto) Immature Gran # (Auto) Sodium Potassium Chloride Carbon Dioxide Anion Gap BUN Creatinine Est Cr Clr Drug Dosing Est GFR ( Amer) Est GFR (Non-Af Amer) BUN/Creatinine Ratio Glucose Calcium Total Bilirubin AST ALT Alkaline Phosphatase Total Protein Albumin Globulin Albumin/Globulin Ratio TSH 2.216 Urine Color Urine Appearance Urine pH Ur Specific [place] Urine Protein Urine Glucose (UA) Urine Ketones Urine Blood Urine Nitrite Urine Bilirubin Urine Urobilinogen Ur Leukocyte Esterase Urine Test Salicylates < 3.0 L Urine Opiates Screen Ur Methadone, Qual Acetaminophen < 3 L Urine Barbiturates Ur Phencyclidine (PCP) U Amphetamin/Meth Scrn MDMA (Ecstasy) Screen U Benzodiazepines Scrn Ur Cocaine Metabolite U Marijuana (THC) Screen Ethyl Alcohol mg/dL < 10.0 SARS-CoV-2, RNA, NAAT 03/01/23 03/01/23 03/01/23 19:44 Unknown Unknown WBC RBC Hgb Hct MCV MCH MCHC RDW Std Deviation RDW Coeff of Margo Plt Count MPV Immature Gran % (Auto) Neut % (Auto) Lymph % (Auto) Tyler % (Auto) Eos % (Auto) Baso % (Auto) Neut # (Auto) Lymph # (Auto) Tyler # (Auto) Eos # (Auto) Baso # (Auto) Immature Gran # (Auto) Sodium Potassium Chloride Carbon Dioxide Anion Gap BUN Creatinine Est Cr Clr Drug Dosing Est GFR ( Amer) Est GFR (Non-Af Amer) BUN/Creatinine Ratio Glucose Calcium Total Bilirubin AST ALT Alkaline Phosphatase Total Protein Albumin Globulin Albumin/Globulin Ratio TSH Urine Color Yellow Urine Appearance Clear Urine pH 7.5 Ur Specific Redwood 1.007 Urine Protein Negative Urine Glucose (UA) Negative Urine Ketones Negative Urine Blood Negative Urine Nitrite Negative Urine Bilirubin Negative Urine Urobilinogen Negative Ur Leukocyte Esterase Negative Urine Test Negative Salicylates Urine Opiates Screen Neg Ur Methadone, Qual Neg Acetaminophen Urine Barbiturates Neg Ur Phencyclidine (PCP) Neg U Amphetamin/Meth Scrn Neg MDMA (Ecstasy) Screen Neg U Benzodiazepines Scrn Neg Ur Cocaine Metabolite Neg U Marijuana (THC) Screen Neg Ethyl Alcohol mg/dL SARS-CoV-2, RNA, NAAT Current Inpatient Medications Current Inpatient Medications: Current Inpatient Medications Acetaminophen (Acetaminophen 325 Mg Tab) 650 mg PO Q4H PRN PRN Reason: Headache or Minor Fever Stop: 03/31/23 20:13 Al Hydrox/Mg Hydrox/Simethicone (Aluminum/Magnesium Susp 30 Ml Udc) 30 ml PO Q4H PRN PRN Reason: GI Upset Stop: 03/31/23 20:13 Bismuth Subsalicylate (Bismuth Subsalicylate Liqd 236 Ml) 15 ml PO PRN PRN PRN Reason: Loose Stool Stop: 03/31/23 20:13 Cetirizine HCl (Cetirizine Hcl 10 Mg Tablet) 10 mg PO DAILY AVELINO Stop: 04/01/23 08:59 Last Admin: 03/02/23 08:58 Dose: 10 mg Fluticasone Propionate (Fluticasone Propionate Na Spr 16 Gm Btl) 2 sprays NA DAILY AVELINO Stop: 04/01/23 08:59 Last Admin: 03/02/23 08:57 Dose: 2 sprays Hydroxyzine HCl (Hydroxyzine Hcl 25 Mg Tab) 50 mg PO HSZ PRN PRN Reason: Insomnia Stop: 03/31/23 20:13 Hydroxyzine HCl (Hydroxyzine Hcl 25 Mg Tab) 25 mg PO Q4H PRN PRN Reason: Anxiety Stop: 03/31/23 20:13 Levothyroxine Sodium (Levothyroxine Sodium 25 Mcg Tablet) 25 mcg PO DAILYBB AVELINO Stop: 04/02/23 07:59 Magnesium Hydroxide (Magnesium Hydroxide Susp 30 Ml Udc) 30 ml PO DAILY PRN PRN Reason: Constipation Stop: 03/31/23 20:13 Miscellaneous (Vortioxetine [Trintellix] 20 Mg Tablet) ~ Order Awaiting Action) 1 each N/A QS [facility] Stop: 04/01/23 15:59 Montelukast Sodium (Montelukast Sodium 10 Mg Tablet) 10 mg PO DAILY AVELINO Stop: 04/01/23 08:59 Last Admin: 03/02/23 08:58 Dose: 10 mg Multivitamins (Multivitamin Tab) 1 tab PO DAILY AVELINO Stop: 04/01/23 08:59 Last Admin: 03/02/23 08:58 Dose: 1 tab Rosuvastatin Calcium (Rosuvastatin Calcium 10 Mg Tab) 10 mg PO DAILY AVELINO Stop: 04/01/23 08:59 Last Admin: 03/02/23 08:58 Dose: 10 mg Sertraline HCl (Sertraline Hcl 100 Mg Tablet) 100 mg PO BID AVELINO Stop: 04/01/23 08:59 Last Admin: 03/02/23 08:59 Dose: 100 mg Sodium Chloride (Sodium Chloride 0.65% Na Soln 45 Ml ([place])) 1 - 2 sprays NA PRN PRN PRN Reason: Nasal Dryness/Congestion Stop: 03/31/23 20:13 Trazodone HCl (Trazodone Hcl 50 Mg Tab) 50 mg PO HS AVELINO Stop: 03/31/23 21:59 Last Admin: 03/01/23 22:40 Dose: 50 mg Trazodone HCl (Trazodone Hcl 50 Mg Tab) 50 mg PO HS PRN PRN Reason: Insomnia Stop: 04/01/23 08:33
[2023-03-02] MEDS: lamoTRIgine 25 MG TAB PO SCH (21:19)
[2023-03-02] MEDS: traZODone HCL 50 MG TAB PO SCH (21:20)
[2023-03-03] MEDS: LEVOTHYROXINE SODIUM 25 MCG TABLET PO SCH (08:45)
--- NOTE | 2023-03-03 08:53 | Psychiatric Progress Note ---
Date of Service March 03, 2023 Impression / Recommendations Wilbur Murphy is a 47 year old woman with a history of MDD and BÁRBARA who was admitted for worsening depression leading to difficulty attending to ADLs, missing work and unable to get out of bed with weight loss and SI. Diagnostically consistent with exacerbation of major depressive disorder. She is deemed in need of psychiatric hospitalization for diagnostic clarification, safety and stabilization, medication management and development of further coping skills. 03/03/2023: Still with depression, tolerating initial doses of Wellbutrin and lamictal (1) Major depressive disorder, recurrent severe without psychotic features: (2) Suicidal ideations: Plan 03/03/2023: Continue current medications and treatment plan 03/02/2023: The patient was admitted to the [facility] ([facility] mental [facility]) on q15 min checks (behavioral with suicide precautions) for safety. The patient will participate in group, recreational, and milieu therapies and will be offered additional individual and family sessions as clinically appropriate. -Start Wellbutrin XL 150mg -Start lamictal 25mg po HS -Stop Trintellix -Continue sertraline 100mg BID and trazodone 50mg hs prn for insomnia Inventory Assets Strengths: supportive relationships, willing to get treatment Needs: safety and stabilization, medication adjustment, additional coping skills, increased outpatient services Suicide Risk Level Suicide Risk Level: Moderate (q15 min suicide checks) (severe depression with SI prior to admission but feels safe in the hospital, able to safety contract and agrees to let nursing/staff know should they develop plan, intent or feel unable to remain safe.) Suicide Risk Level Comments: Risk Factors Assessment Male: No : Yes Do You Have Access To A Gun?: No Health Problems: Yes Mental Health Diagnoses: Yes Substance Use Disorders: No Previous Attempt: No Family History of Suicide: No Previous Psychiatric Hospitalization: Yes Protective Factors Assessment Jainism Beliefs: Yes : Yes Responsible for Young Children: No Employed: Yes Stable Relationships: Yes Supportive Family: Yes Good Rapport with Provider: Yes Interval History Identifying Information DEE DEE MENDIETA is a 47-year-old F who currently lives in [facility] with her and sons, has a history of depression and anxiety, and was admitted on 03/01/23 20:14 on a 201 voluntary commitment for severe depression with inability to function or attend to ADLs and SI. Chief Complaint "I'm ok". Review of Systems Sleep Information Total Hours of Sleep: 6.5 Meal Information Percent Meal Consumed - Breakfast: 75 Percent Meal Consumed - Lunch: 100 Percent Meal Consumed - Dinner: 75 Subjective Subjective Patient was seen & assessed and interval progress reviewed with treatment team nursing and social work. She feels "ok" today and thinks she may have "a little bit more energy". No negative side effects from Wellbutrin nor lamictal initiation. Denies SI. Physical Exam Psychiatric Orientation: alert and oriented x 3 Apperance: appropriately dressed and appropriately groomed Eye Contact: + fair eye contact Motor Behavior: no abnormal motor movements Speech: normal rate/rhythm/volume of speech Affect: + depressed affect and + anxious affect Mood: + depressed mood and + anxious mood Thought Process: + circumstantial thought process Thought Content: reality based without delusions, + hopelessness and + worthlessness Suicidal Thoughts: denies suicidal thoughts (intermittent thoughts, none so far today ), denies suicidal plan and denies suicidal intent Homicidal Thoughts: denies homicidal thoughts Hallucinations: no auditory hallucinations and no visual hallucinations Cognition: recent memory grossly intact, remote memory grossly intact, attention grossly intact and language grossly intact Estimated Intelligence: consistent with education level Insight: + fair insight Judgment: + limited judgement Vital Signs (Past 24 Hours) Last Vital Signs Temp 36.7 C 03/03/23 06:41 Pulse 78 03/03/23 06:42 Resp 16 03/03/23 06:41 BP 92/57 L 03/03/23 06:42 Pulse Ox 98 03/01/23 21:03 O2 Del Method Room Air 03/01/23 21:03 Results & Data ([facility]) Current Inpatient Medications Current Inpatient Medications: Current Inpatient Medications Acetaminophen (Acetaminophen 325 Mg Tab) 650 mg PO Q4H PRN PRN Reason: Headache or Minor Fever Stop: 03/31/23 20:13 Al Hydrox/Mg Hydrox/Simethicone (Aluminum/Magnesium Susp 30 Ml Udc) 30 ml PO Q4H PRN PRN Reason: GI Upset Stop: 03/31/23 20:13 Bismuth Subsalicylate (Bismuth Subsalicylate Liqd 236 Ml) 15 ml PO PRN PRN PRN Reason: Loose Stool Stop: 03/31/23 20:13 Bupropion HCl (Bupropion Xl 150 Mg Tabcr) 150 mg PO QAM AVELINO Stop: 04/02/23 08:59 Cetirizine HCl (Cetirizine Hcl 10 Mg Tablet) 10 mg PO DAILY AVELINO Stop: 04/01/23 08:59 Last Admin: 03/02/23 08:58 Dose: 10 mg Fluticasone Propionate (Fluticasone Propionate Na Spr 16 Gm Btl) 2 sprays NA DAILY AVELINO Stop: 04/01/23 08:59 Last Admin: 03/02/23 08:57 Dose: 2 sprays Hydroxyzine HCl (Hydroxyzine Hcl 25 Mg Tab) 50 mg PO HSZ PRN PRN Reason: Insomnia Stop: 03/31/23 20:13 Hydroxyzine HCl (Hydroxyzine Hcl 25 Mg Tab) 25 mg PO Q4H PRN PRN Reason: Anxiety Stop: 03/31/23 20:13 Lamotrigine (Lamotrigine 25 Mg Tab) 25 mg PO HS AVELINO Stop: 04/01/23 21:59 Last Admin: 03/02/23 21:19 Dose: 25 mg Levothyroxine Sodium (Levothyroxine Sodium 25 Mcg Tablet) 25 mcg PO DAILYBB AVELINO Stop: 04/02/23 07:59 Last Admin: 03/03/23 08:45 Dose: 25 mcg Magnesium Hydroxide (Magnesium Hydroxide Susp 30 Ml Udc) 30 ml PO DAILY PRN PRN Reason: Constipation Stop: 03/31/23 20:13 Montelukast Sodium (Montelukast Sodium 10 Mg Tablet) 10 mg PO DAILY AVELINO Stop: 04/01/23 08:59 Last Admin: 03/02/23 08:58 Dose: 10 mg Multivitamins (Multivitamin Tab) 1 tab PO DAILY AVELINO Stop: 04/01/23 08:59 Last Admin: 03/02/23 08:58 Dose: 1 tab Rosuvastatin Calcium (Rosuvastatin Calcium 10 Mg Tab) 10 mg PO DAILY AVELINO Stop: 04/01/23 08:59 Last Admin: 03/02/23 08:58 Dose: 10 mg Sertraline HCl (Sertraline Hcl 100 Mg Tablet) 100 mg PO BID AVELINO Stop: 04/01/23 08:59 Last Admin: 03/02/23 21:21 Dose: 100 mg Sodium Chloride (Sodium Chloride 0.65% Na Soln 45 Ml ([place])) 1 - 2 sprays NA PRN PRN PRN Reason: Nasal Dryness/Congestion Stop: 03/31/23 20:13 Trazodone HCl (Trazodone Hcl 50 Mg Tab) 50 mg PO HS AVELINO Stop: 03/31/23 21:59 Last Admin: 03/02/23 21:20 Dose: 50 mg Trazodone HCl (Trazodone Hcl 50 Mg Tab) 50 mg PO HS PRN PRN Reason: Insomnia Stop: 04/01/23 08:33 Mental Health & Subst Abuse Tx Psychiatrist Name of Psychiatrist: Areli Saul Psychiatrist's Date Of Appointment With Psychiatric Provider: 03/15/23 Time of Appointment with Psychiatrist: 10:20 AM Psychiatric Appointment Comment: [address], [place] [address] Therapist Name of Therapist: Domingo Matute Therapist's Date of Therapist Appointment: 03/10/23 Time of Therapist Appointment: 12:00 PM Therapy Appointment Comment: [address] [facility], [address], [place] [address] Post Discharge Appointments Primary Care Physician Name Of Family Doctor/PCP: Angeli Johnson Primary Care Date of Future Appointment with PCP: 03/08/23 Time of Appointment with PCP: arrival 11:45 AM, appointment at 12:00 PM Provider Appointment Comment: [address], [place] [address] Contact Information Discharge Discharge Address: [facility] [address], [place] [address]
[2023-03-03] MEDS: MONTELUKAST SODIUM 10 MG TABLET PO SCH (09:30)
[2023-03-03] MEDS: MULTIVITAMIN TAB PO SCH (09:30)
[2023-03-03] MEDS: CETIRIZINE HCL 10 MG TABLET PO SCH (09:30)
[2023-03-03] MEDS: buPROPion XL 150 MG TABCR PO SCH (09:30)
[2023-03-03] MEDS: ROSUVASTATIN CALCIUM 10 MG TAB PO SCH (09:31)
[2023-03-03] MEDS: SERTRALINE HCL 100 MG TABLET PO SCH ×2 (09:31→22:31)
[2023-03-03] MEDS: FLUTICASONE PROPIONATE NA SPR 16 GM BTL SCH (09:34)
[2023-03-03] MEDS: lamoTRIgine 25 MG TAB PO SCH (22:31)
[2023-03-03] MEDS: traZODone HCL 50 MG TAB PO SCH (22:32)
[2023-03-04] MEDS: LEVOTHYROXINE SODIUM 25 MCG TABLET PO SCH (08:02)
[2023-03-04] MEDS: buPROPion XL 150 MG TABCR PO SCH (08:43)
[2023-03-04] MEDS: ROSUVASTATIN CALCIUM 10 MG TAB PO SCH (08:43)
[2023-03-04] MEDS: SERTRALINE HCL 100 MG TABLET PO SCH ×2 (08:44→22:30)
[2023-03-04] MEDS: MULTIVITAMIN TAB PO SCH (08:44)
[2023-03-04] MEDS: CETIRIZINE HCL 10 MG TABLET PO SCH (08:44)
[2023-03-04] MEDS: FLUTICASONE PROPIONATE NA SPR 16 GM BTL SCH (08:45)
[2023-03-04] MEDS: MONTELUKAST SODIUM 10 MG TABLET PO SCH (08:46)
--- NOTE | 2023-03-04 08:59 | Psychiatric Progress Note ---
Date of Service March 04, 2023 Impression / Recommendations Wilbur Murphy is a 47 year old woman with a history of MDD and BÁRBARA who was admitted for worsening depression leading to difficulty attending to ADLs, missing work and unable to get out of bed with weight loss and SI. Diagnostically consistent with exacerbation of major depressive disorder. She is deemed in need of psychiatric hospitalization for diagnostic clarification, safety and stabilization, medication management and development of further coping skills. 03/04/2023: Ongoing depression but energy improving slightly since starting Wellbutrin. Still with significant lack of motivation. (1) Major depressive disorder, recurrent severe without psychotic features: (2) Suicidal ideations: Plan 03/04/2023: Continue current medications and treatment plan. 03/03/2023: Continue current medications and treatment plan 03/02/2023: The patient was admitted to the [facility] ([facility]) on q15 min checks (behavioral with suicide precautions) for safety. The patient will participate in group, recreational, and milieu therapies and will be offered additional individual and family sessions as clinically appropriate. -Start Wellbutrin XL 150mg -Start lamictal 25mg po HS -Stop Trintellix -Continue sertraline 100mg BID and trazodone 50mg hs prn for insomnia Inventory Assets Strengths: supportive relationships, willing to get treatment Needs: safety and stabilization, medication adjustment, additional coping skills, increased outpatient services Suicide Risk Level Suicide Risk Level: Moderate (q15 min suicide checks) (severe depression with SI prior to admission but feels safe in the hospital, able to safety contract and agrees to let nursing/staff know should they develop plan, intent or feel unable to remain safe.) Suicide Risk Level Comments: Risk Factors Assessment Male: No : Yes Do You Have Access To A Gun?: No Health Problems: Yes Mental Health Diagnoses: Yes Substance Use Disorders: No Previous Attempt: No Family History of Suicide: No Previous Psychiatric Hospitalization: Yes Protective Factors Assessment Methodist Beliefs: Yes : Yes Responsible for Young Children: No Employed: Yes Stable Relationships: Yes Supportive Family: Yes Good Rapport with Provider: Yes Interval History Identifying Information DEE DEE MENDIETA is a 47-year-old F who currently lives in [facility] with her and sons, has a history of depression and anxiety, and was admitted on 03/01/23 20:14 on a 201 voluntary commitment for severe depression with inability to function or attend to ADLs and SI. Chief Complaint "I'm ok". Review of Systems Sleep Information Total Hours of Sleep: 6.5 Meal Information Percent Meal Consumed - Breakfast: 80 Percent Meal Consumed - Lunch: 95 Percent Meal Consumed - Dinner: 95 Subjective Subjective Patient was seen & assessed and interval progress reviewed with treatment team nursing and social work. Attending groups, working on puzzles, engaging with pe ers. Hasn't noticed any new side effects to her medications. No signs of rash. Still having a lot of difficulty getting out of bed but feels like energy improves a little bit after taking Wellbutrin XL. No increase in anxiety. Physical Exam Psychiatric Orientation: alert and oriented x 3 Apperance: appropriately dressed and appropriately groomed Eye Contact: + fair eye contact Motor Behavior: no abnormal motor movements Speech: normal rate/rhythm/volume of speech Affect: + depressed affect and + anxious affect Mood: + depressed mood and + anxious mood Thought Process: goal directed thought process Thought Content: reality based without delusions Suicidal Thoughts: denies suicidal thoughts (intermittent thoughts, none so far today ), denies suicidal plan and denies suicidal intent Homicidal Thoughts: denies homicidal thoughts Hallucinations: no auditory hallucinations and no visual hallucinations Cognition: recent memory grossly intact, remote memory grossly intact, attention grossly intact and language grossly intact Estimated Intelligence: consistent with education level Insight: + fair insight Judgment: + limited judgement Vital Signs (Past 24 Hours) Last Vital Signs Temp 36.6 C 03/04/23 06:32 Pulse 75 03/04/23 06:34 Resp 16 03/04/23 06:32 BP 88/61 L 03/04/23 06:34 Pulse Ox 98 03/01/23 21:03 O2 Del Method Room Air 03/01/23 21:03 Results & Data ([facility]) Current Inpatient Medications Current Inpatient Medications: Current Inpatient Medications Acetaminophen (Acetaminophen 325 Mg Tab) 650 mg PO Q4H PRN PRN Reason: Headache or Minor Fever Stop: 03/31/23 20:13 Al Hydrox/Mg Hydrox/Simethicone (Aluminum/Magnesium Susp 30 Ml Udc) 30 ml PO Q4H PRN PRN Reason: GI Upset Stop: 03/31/23 20:13 Bismuth Subsalicylate (Bismuth Subsalicylate Liqd 236 Ml) 15 ml PO PRN PRN PRN Reason: Loose Stool Stop: 03/31/23 20:13 Bupropion HCl (Bupropion Xl 150 Mg Tabcr) 150 mg PO QAM AVELINO Stop: 04/02/23 08:59 Last Admin: 03/04/23 08:43 Dose: 150 mg Cetirizine HCl (Cetirizine Hcl 10 Mg Tablet) 10 mg PO DAILY AVELINO Stop: 04/01/23 08:59 Last Admin: 03/04/23 08:44 Dose: 10 mg Fluticasone Propionate (Fluticasone Propionate Na Spr 16 Gm Btl) 2 sprays NA DAILY AVELINO Stop: 04/01/23 08:59 Last Admin: 03/04/23 08:45 Dose: 2 sprays Hydroxyzine HCl (Hydroxyzine Hcl 25 Mg Tab) 50 mg PO HSZ PRN PRN Reason: Insomnia Stop: 03/31/23 20:13 Hydroxyzine HCl (Hydroxyzine Hcl 25 Mg Tab) 25 mg PO Q4H PRN PRN Reason: Anxiety Stop: 03/31/23 20:13 Lamotrigine (Lamotrigine 25 Mg Tab) 25 mg PO HS AVELINO Stop: 04/01/23 21:59 Last Admin: 03/03/23 22:31 Dose: 25 mg Levothyroxine Sodium (Levothyroxine Sodium 25 Mcg Tablet) 25 mcg PO DAILYBB AVELINO Stop: 04/02/23 07:59 Last Admin: 03/04/23 08:02 Dose: 25 mcg Magnesium Hydroxide (Magnesium Hydroxide Susp 30 Ml Udc) 30 ml PO DAILY PRN PRN Reason: Constipation Stop: 03/31/23 20:13 Montelukast Sodium (Montelukast Sodium 10 Mg Tablet) 10 mg PO DAILY AVELINO Stop: 04/01/23 08:59 Last Admin: 03/04/23 08:46 Dose: 10 mg Multivitamins (Multivitamin Tab) 1 tab PO DAILY AVELINO Stop: 04/01/23 08:59 Last Admin: 03/04/23 08:44 Dose: 1 tab Rosuvastatin Calcium (Rosuvastatin Calcium 10 Mg Tab) 10 mg PO DAILY AVELINO Stop: 04/01/23 08:59 Last Admin: 03/04/23 08:43 Dose: 10 mg Sertraline HCl (Sertraline Hcl 100 Mg Tablet) 100 mg PO BID AVELINO Stop: 04/01/23 08:59 Last Admin: 03/04/23 08:44 Dose: 100 mg Sodium Chloride (Sodium Chloride 0.65% Na Soln 45 Ml ([place])) 1 - 2 sprays NA PRN PRN PRN Reason: Nasal Dryness/Congestion Stop: 03/31/23 20:13 Trazodone HCl (Trazodone Hcl 50 Mg Tab) 50 mg PO HS AVELINO Stop: 03/31/23 21:59 Last Admin: 03/03/23 22:32 Dose: 50 mg Trazodone HCl (Trazodone Hcl 50 Mg Tab) 50 mg PO HS PRN PRN Reason: Insomnia Stop: 04/01/23 08:33 Mental Health & Subst Abuse Tx Psychiatrist Name of Psychiatrist: Areli Saul Psychiatrist's Date Of Appointment With Psychiatric Provider: 03/15/23 Time of Appointment with Psychiatrist: 10:20 AM Psychiatric Appointment Comment: [address], [place] [address] Therapist Name of Therapist: Domingo Matute Therapist's Date of Therapist Appointment: 03/10/23 Time of Therapist Appointment: 12:00 PM Therapy Appointment Comment: [address] [facility] [address] [facility], [address], [place] [address] Construction Secretary Name of Construction Secretary: [employer] Phone Number for Construction Secretary: [phone] Time of Appointment with Construction Secretary: TBD Case Management Appointment Comment: Your Blended Construction Secretary will reach out to schedule. Post Discharge Appointments Primary Care Physician Name Of Family Doctor/PCP: Angeli Johnson Primary Care Date of Future Appointment with PCP: 03/08/23 Time of Appointment with PCP: arrival 11:45 AM, appointment at 12:00 PM Provider Appointment Comment: [address], [place] [address] Contact Information Discharge Discharge Address: [address], [place] [address]
[2023-03-04] MEDS: lamoTRIgine 25 MG TAB PO SCH (22:30)
[2023-03-04] MEDS: traZODone HCL 50 MG TAB PO SCH (22:30)
[2023-03-05] MEDS: LEVOTHYROXINE SODIUM 25 MCG TABLET PO SCH (07:41)
[2023-03-05] MEDS: MULTIVITAMIN TAB PO SCH (08:53)
[2023-03-05] MEDS: CETIRIZINE HCL 10 MG TABLET PO SCH (08:53)
[2023-03-05] MEDS: ROSUVASTATIN CALCIUM 10 MG TAB PO SCH (08:53)
[2023-03-05] MEDS: buPROPion XL 150 MG TABCR PO SCH (08:53)
[2023-03-05] MEDS: FLUTICASONE PROPIONATE NA SPR 16 GM BTL SCH (08:53)
[2023-03-05] MEDS: SERTRALINE HCL 100 MG TABLET PO SCH ×2 (08:53→22:33)
[2023-03-05] MEDS: MONTELUKAST SODIUM 10 MG TABLET PO SCH (08:53)
--- NOTE | 2023-03-05 16:18 | Psychiatric Progress Note ---
Date of Service March 05, 2023 Impression / Recommendations Wilbur Murphy is a 47 year old woman with a history of MDD and BÁRBARA who was admitted for worsening depression leading to difficulty attending to ADLs, missing work and unable to get out of bed with weight loss and SI. Diagnostically consistent with exacerbation of major depressive disorder. She is deemed in need of psychiatric hospitalization for diagnostic clarification, safety and stabilization, medication management and development of further coping skills. 03/05/2023: Mood starting to improve, denies SI. Poor sleep last night and still with still with some difficulty getting out of bed in the morning but has been engaged with morning activities and groups here. Tolerating Wellbutrin and lamictal additions. (1) Major depressive disorder, recurrent severe without psychotic features: (2) Suicidal ideations: Plan 03/05/2023: Continue current medications and treatment plan. 03/04/2023: Continue current medications and treatment plan. 03/03/2023: Continue current medications and treatment plan 03/02/2023: The patient was admitted to the [facility] ([facility]) on q15 min checks (behavioral with suicide precautions) for safety. The patient will participate in group, recreational, and milieu therapies and will be offered additional individual and family sessions as clinically appropriate. -Start Wellbutrin XL 150mg -Start lamictal 25mg po HS -Stop Trintellix -Continue sertraline 100mg BID and trazodone 50mg hs prn for insomnia Inventory Assets Strengths: supportive relationships, willing to get treatment Needs: safety and stabilization, medication adjustment, additional coping skills, increased outpatient services Suicide Risk Level Suicide Risk Level: Moderate (q15 min suicide checks) (severe depression with SI prior to admission but now denies SI, mood improving, feels safe in the hospital, able to safety contract and agrees to let nursing/staff know should they develop plan, intent or feel unable to remain safe.) Suicide Risk Level Comments: Risk Factors Assessment Male: No : Yes Do You Have Access To A Gun?: No Health Problems: Yes Mental Health Diagnoses: Yes Substance Use Disorders: No Previous Attempt: No Family History of Suicide: No Previous Psychiatric Hospitalization: Yes Protective Factors Assessment Buddhist Beliefs: Yes : Yes Responsible for Young Children: No Employed: Yes Stable Relationships: Yes Supportive Family: Yes Good Rapport with Provider: Yes Interval History Identifying Information DEE DEE MENDIETA is a 47-year-old F who currently lives in [facility] with her and sons, has a history of depression and anxiety, and was admitted on 03/01/23 20:14 on a 201 voluntary commitment for severe depression with inability to function or attend to ADLs and SI. Chief Complaint "I'm good". Review of Systems Sleep Information Total Hours of Sleep: 4.5 Sleep Comments: patient received PRN Trazodone to help with sleep Meal Information Percent Meal Consumed - Breakfast: 100 Percent Meal Consumed - Lunch: 100 Percent Meal Consumed - Dinner: 100 Subjective Subjective Patient was seen & assessed and interval progress reviewed with treatment team nursing and social work. Still struggling with low motivation especially in the morning but has been able to get out of bed. No new medication side effects. Thinks Wellbutrin may be offering a little bit of energy. Met her new CM and feels hopeful about this. Didn't sleep well last night. Discussed potential strategies to make the morning easier such as prepping breakfast ahead and having something to look forward to like a podcast or TV show to watch with breakfast. Physical Exam Psychiatric Orientation: alert and oriented x 3 Apperance: appropriately dressed and appropriately groomed Eye Contact: good eye contact Motor Behavior: no abnormal motor movements Speech: normal rate/rhythm/volume of speech Affect: + constricted affect Mood: + depressed mood and + anxious mood Thought Process: goal directed thought process Thought Content: reality based without delusions Suicidal Thoughts: denies suicidal thoughts, denies suicidal plan and denies suicidal intent Homicidal Thoughts: denies homicidal thoughts Hallucinations: no auditory hallucinations and no visual hallucinations Cognition: recent memory grossly intact, remote memory grossly intact, attention grossly intact and language grossly intact Estimated Intelligence: consistent with education level Insight: + fair insight Judgment: + limited judgement Vital Signs (Past 24 Hours) Last Vital Signs Temp 36.5 C 03/05/23 06:43 Pulse 68 03/05/23 06:43 Resp 16 03/05/23 06:43 BP 108/69 03/05/23 06:43 Pulse Ox 98 03/01/23 21:03 O2 Del Method Room Air 03/01/23 21:03 Results & Data ([facility]) Current Inpatient Medications Current Inpatient Medications: Current Inpatient Medications Acetaminophen (Acetaminophen 325 Mg Tab) 650 mg PO Q4H PRN PRN Reason: Headache or Minor Fever Stop: 03/31/23 20:13 Al Hydrox/Mg Hydrox/Simethicone (Aluminum/Magnesium Susp 30 Ml Udc) 30 ml PO Q4H PRN PRN Reason: GI Upset Stop: 03/31/23 20:13 Bismuth Subsalicylate (Bismuth Subsalicylate Liqd 236 Ml) 15 ml PO PRN PRN PRN Reason: Loose Stool Stop: 03/31/23 20:13 Bupropion HCl (Bupropion Xl 150 Mg Tabcr) 150 mg PO QAM AVELINO Stop: 04/02/23 08:59 Last Admin: 03/05/23 08:53 Dose: 150 mg Cetirizine HCl (Cetirizine Hcl 10 Mg Tablet) 10 mg PO DAILY AVELINO Stop: 04/01/23 08:59 Last Admin: 03/05/23 08:53 Dose: 10 mg Fluticasone Propionate (Fluticasone Propionate Na Spr 16 Gm Btl) 2 sprays NA DAILY AVELINO Stop: 04/01/23 08:59 Last Admin: 03/05/23 08:53 Dose: 2 sprays Hydroxyzine HCl (Hydroxyzine Hcl 25 Mg Tab) 50 mg PO HSZ PRN PRN Reason: Insomnia Stop: 03/31/23 20:13 Hydroxyzine HCl (Hydroxyzine Hcl 25 Mg Tab) 25 mg PO Q4H PRN PRN Reason: Anxiety Stop: 03/31/23 20:13 Lamotrigine (Lamotrigine 25 Mg Tab) 25 mg PO HS AVELINO Stop: 04/01/23 21:59 Last Admin: 03/04/23 22:30 Dose: 25 mg Levothyroxine Sodium (Levothyroxine Sodium 25 Mcg Tablet) 25 mcg PO DAILYBB AVELINO Stop: 04/02/23 07:59 Last Admin: 03/05/23 07:41 Dose: 25 mcg Magnesium Hydroxide (Magnesium Hydroxide Susp 30 Ml Udc) 30 ml PO DAILY PRN PRN Reason: Constipation Stop: 03/31/23 20:13 Montelukast Sodium (Montelukast Sodium 10 Mg Tablet) 10 mg PO DAILY AVELINO Stop: 04/01/23 08:59 Last Admin: 03/05/23 08:53 Dose: 10 mg Multivitamins (Multivitamin Tab) 1 tab PO DAILY AVELINO Stop: 04/01/23 08:59 Last Admin: 03/05/23 08:53 Dose: 1 tab Rosuvastatin Calcium (Rosuvastatin Calcium 10 Mg Tab) 10 mg PO DAILY AVELINO Stop: 04/01/23 08:59 Last Admin: 03/05/23 08:53 Dose: 10 mg Sertraline HCl (Sertraline Hcl 100 Mg Tablet) 100 mg PO BID AVELINO Stop: 04/01/23 08:59 Last Admin: 03/05/23 08:53 Dose: 100 mg Sodium Chloride (Sodium Chloride 0.65% Na Soln 45 Ml ([place])) 1 - 2 sprays NA PRN PRN PRN Reason: Nasal Dryness/Congestion Stop: 03/31/23 20:13 Trazodone HCl (Trazodone Hcl 50 Mg Tab) 50 mg PO HS AVELINO Stop: 03/31/23 21:59 Last Admin: 03/04/23 22:30 Dose: 50 mg Trazodone HCl (Trazodone Hcl 50 Mg Tab) 50 mg PO HS PRN PRN Reason: Insomnia Stop: 04/01/23 08:33 Last Admin: 03/04/23 23:58 Dose: 50 mg Mental Health & Subst Abuse Tx Psychiatrist Name of Psychiatrist: Areli Saul Psychiatrist's Date Of Appointment With Psychiatric Provider: 03/15/23 Time of Appointment with Psychiatrist: 10:20 AM Psychiatric Appointment Comment: [address], [place] [address] Therapist Name of Therapist: Domingo Matute Therapist's Date of Therapist Appointment: 03/10/23 Time of Therapist Appointment: 12:00 PM Therapy Appointment Comment: [address] [facility], [address], [place] [address] Asbestos Removal Worker Name of Asbestos Removal Worker: [facility] Madhu Patricia Phone Number for Asbestos Removal Worker: [phone] Date of Appointment with Asbestos Removal Worker: 03/09/23 Time of Appointment with Asbestos Removal Worker: 11:30 AM Case Management Appointment Comment: Your Asbestos Removal Worker will meet you at [facility]. Post Discharge Appointments Primary Care Physician Name Of Family Doctor/PCP: Angeli Johnson Primary Care Date of Future Appointment with PCP: 03/08/23 Time of Appointment with PCP: arrival 11:45 AM, appointment at 12:00 PM Provider Appointment Comment: [address], [place] [address] Contact Information Discharge Discharge Address: [address], [place] [address]
[2023-03-05] MEDS: traZODone HCL 50 MG TAB PO SCH (22:34)
[2023-03-05] MEDS: lamoTRIgine 25 MG TAB PO SCH (22:34)
[2023-03-06 06:39] VITALS: BP 107/70; PULSE 76; TEMP 98.2
--- NOTE | 2023-03-06 08:52 | Discharge Summary ---
Date of Service March 06, 2023 History of Present Illness As per Dr. Duarte on admission: Katherine presented to the hospital with her for worsening depression. Since her last admission in December she recalls starting to feel better and felt good for most of January but then at the beginning of February she started to become very depressed again. There were some increased stressors related to her work starting in early February and she has been considering asking for a divorce. She been increasingly depressed over the last week including anhedonia, lack of motivation, has been unable to get out of bed, unable to make herself any meals so has been losing weight, hopelessness, decreased psychomotor activity and SI. She feels like her body "flipped like a light switch" back to severe depression. She saw Didi Saul last week and was going to start on a new medication, lamictal, but was too depressed to get to the pharmacy to pick this up because "I don't function when I get like this". Physical Exam Psychiatric See admission H&P and DOD assessment. Vital Signs (Past 24 Hours) Last Vital Signs Temp 36.8 C 03/06/23 06:38 Pulse 76 03/06/23 06:38 Resp 16 03/06/23 06:38 BP 107/70 03/06/23 06:38 Pulse Ox 98 03/01/23 21:03 O2 Del Method Room Air 03/01/23 21:03 Principal Diagnosis major depressive disorder Psychiatric Data See daily stay summary. In short, safety was maintained and the patient was cooperative with care. Medication changes included addition of Wellbutrin in place of Trintellix and initiation of lamictal and they tolerated this well. A safety plan was completed prior to discharge. Aware of need for slow titration of lamictal on outpatient basis to minimize risk of rash, hold if develops rash and notify provider. Reconfirmed no hx of seizure. Day of Discharge Assessment Today the patient voices readiness for discharge. They note improvement in mood and deny thoughts to harm self or others. Thoughts remain organized and they are improved from admission. There is no evidence of psychosis. They agree to take mediations as prescribed and keep follow-up appointments. They are stable for discharge to outpatient level of care. Transition of Care Transition Of Care Record: was reviewed with the patient Advance Directives Advance Directives Information Provided: Yes Advance Directives: No Mental Health Advance Directive: No Advance Directives on File: No Living Will: No Power of Security Escort: No Advance Directives Reason:: Declines as Mental Health Visit. Suicide Risk Level Suicide Risk Level Comments: Suicide risk at discharge is deemed low as the patient is no longer requiring 24-hr monitoring, has a safety plan, and is free of suicidal ideation at discharge. Risk Factors Assessment Male: No : Yes Do You Have Access To A Gun?: No Health Problems: Yes Mental Health Diagnoses: Yes Substance Use Disorders: No Previous Attempt: No Family History of Suicide: No Previous Psychiatric Hospitalization: Yes Protective Factors Assessment Mandaeism Beliefs: Yes : Yes Responsible for Young Children: No Employed: Yes Stable Relationships: Yes Supportive Family: Yes Good Rapport with Provider: Yes Tobacco Cessation at Discharge Tobacco Cessation Medication Prescribed at Discharge: Not Applicable/Non-Smoker Total Time Total Time Spent: Greater Than 30 Minutes Total Time Includes: Examination of the patient, Discharge Planning and Medication Reconciliation Discharge Data Lab Results 03/01/23 03/01/23 03/01/23 18:32 18:36 18:36 WBC 6.66 RBC 5.36 Hgb 14.9 Hct 45.0 MCV 84.0 MCH 27.8 MCHC 33.1 RDW Std Deviation 41.3 RDW Coeff of Margo 13.5 Plt Count 212 MPV 9.9 Immature Gran % (Auto) 0.2 Neut % (Auto) 67.2 Lymph % (Auto) 26.9 Carbon % (Auto) 4.8 Eos % (Auto) 0.3 Baso % (Auto) 0.6 Neut # (Auto) 4.48 Lymph # (Auto) 1.79 Carbon # (Auto) 0.32 Eos # (Auto) 0.02 Baso # (Auto) 0.04 Immature Gran # (Auto) 0.01 Sodium 138 Potassium 4.1 Chloride 101 Carbon Dioxide 31 Anion Gap 6 BUN 12 Creatinine 0.87 Est Cr Clr Drug Dosing 68.9 Est GFR ( Amer) 91.3 Est GFR (Non-Af Amer) 78.8 BUN/Creatinine Ratio 13.8 Glucose 88 Calcium 10.0 Total Bilirubin 0.8 AST 21 ALT 17 Alkaline Phosphatase 86 Total Protein 7.4 Albumin 4.6 Globulin 2.8 Albumin/Globulin Ratio 1.6 TSH Urine Color Urine Appearance Urine pH Ur Specific [place] Urine Protein Urine Glucose (UA) Urine Ketones Urine Blood Urine Nitrite Urine Bilirubin Urine Urobilinogen Ur Leukocyte Esterase Urine Test Salicylates Urine Opiates Screen Ur Methadone, Qual Acetaminophen Urine Barbiturates Ur Phencyclidine (PCP) U Amphetamin/Meth Scrn MDMA (Ecstasy) Screen U Benzodiazepines Scrn Ur Cocaine Metabolite U Marijuana (THC) Screen Ethyl Alcohol mg/dL SARS-CoV-2, RNA, NAAT NEGATIVE 03/01/23 03/01/23 03/01/23 18:36 18:36 19:43 WBC RBC Hgb Hct MCV MCH MCHC RDW Std Deviation RDW Coeff of Margo Plt Count MPV Immature Gran % (Auto) Neut % (Auto) Lymph % (Auto) Carbon % (Auto) Eos % (Auto) Baso % (Auto) Neut # (Auto) Lymph # (Auto) Carbon # (Auto) Eos # (Auto) Baso # (Auto) Immature Gran # (Auto) Sodium Potassium Chloride Carbon Dioxide Anion Gap BUN Creatinine Est Cr Clr Drug Dosing Est GFR ( Amer) Est GFR (Non-Af Amer) BUN/Creatinine Ratio Glucose Calcium Total Bilirubin AST ALT Alkaline Phosphatase Total Protein Albumin Globulin Albumin/Globulin Ratio TSH 2.216 Urine Color Urine Appearance Urine pH Ur Specific [place] Urine Protein Urine Glucose (UA) Urine Ketones Urine Blood Urine Nitrite Urine Bilirubin Urine Urobilinogen Ur Leukocyte Esterase Urine Test Salicylates < 3.0 L Urine Opiates Screen Ur Methadone, Qual Acetaminophen < 3 L Urine Barbiturates Ur Phencyclidine (PCP) U Amphetamin/Meth Scrn MDMA (Ecstasy) Screen U Benzodiazepines Scrn Ur Cocaine Metabolite U Marijuana (THC) Screen Ethyl Alcohol mg/dL < 10.0 SARS-CoV-2, RNA, NAAT 03/01/23 03/01/23 03/01/23 19:44 Unknown Unknown WBC RBC Hgb Hct MCV MCH MCHC RDW Std Deviation RDW Coeff of Margo Plt Count MPV Immature Gran % (Auto) Neut % (Auto) Lymph % (Auto) Carbon % (Auto) Eos % (Auto) Baso % (Auto) Neut # (Auto) Lymph # (Auto) Carbon # (Auto) Eos # (Auto) Baso # (Auto) Immature Gran # (Auto) Sodium Potassium Chloride Carbon Dioxide Anion Gap BUN Creatinine Est Cr Clr Drug Dosing Est GFR ( Amer) Est GFR (Non-Af Amer) BUN/Creatinine Ratio Glucose Calcium Total Bilirubin AST ALT Alkaline Phosphatase Total Protein Albumin Globulin Albumin/Globulin Ratio TSH Urine Color Yellow Urine Appearance Clear Urine pH 7.5 Ur Specific [place] 1.007 Urine Protein Negative Urine Glucose (UA) Negative Urine Ketones Negative Urine Blood Negative Urine Nitrite Negative Urine Bilirubin Negative Urine Urobilinogen Negative Ur Leukocyte Esterase Negative Urine Test Negative Salicylates Urine Opiates Screen Neg Ur Methadone, Qual Neg Acetaminophen Urine Barbiturates Neg Ur Phencyclidine (PCP) Neg U Amphetamin/Meth Scrn Neg MDMA (Ecstasy) Screen Neg U Benzodiazepines Scrn Neg Ur Cocaine Metabolite Neg U Marijuana (THC) Screen Neg Ethyl Alcohol mg/dL SARS-CoV-2, RNA, NAAT Hospital Course (1) Major depressive disorder, recurrent severe without psychotic features: (2) Suicidal ideations: Plan 03/05/2023: Continue current medications and treatment plan. 03/04/2023: Continue current medications and treatment plan. 03/03/2023: Continue current medications and treatment plan 03/02/2023: The patient was admitted to the [facility] ([facility] mental health unit) on q15 min checks (behavioral with suicide precautions) for safety. The patient will participate in group, recreational, and milieu therapies and will be offered additional individual and family sessions as clinically appropri ate. -Start Wellbutrin XL 150mg -Start lamictal 25mg po HS -Stop Trintellix -Continue sertraline 100mg BID and trazodone 50mg hs prn for insomnia Mental Health & Subst Abuse Tx Psychiatrist Name of Psychiatrist: Areli Saul Psychiatrist's Date Of Appointment With Psychiatric Provider: 03/15/23 Time of Appointment with Psychiatrist: 10:20 AM Psychiatric Appointment Comment: [address], [place] [address] Therapist Name of Therapist: Domingo Matute Therapist's Date of Therapist Appointment: 03/10/23 Time of Therapist Appointment: 12:00 PM Therapy Appointment Comment: [address], [address], [place] [address] Ticket Marker Name of Ticket Marker: [facility] Phone Number for Ticket Marker: [phone] Date of Appointment with Ticket Marker: 03/09/23 Time of Appointment with Ticket Marker: 11:30 AM Case Management Appointment Comment: Your Ticket Marker will meet you at [facility]. Post Discharge Appointments Primary Care Physician Name Of Family Doctor/PCP: Angeli Johnson Primary [facility] Date of Future Appointment with PCP: 03/08/23 Time of Appointment with PCP: arrival 11:45 AM, appointment at 12:00 PM Provider Appointment Comment: [address], [place] [id number] Smoking Cessation Counseling Tobacco Cessation Medication Prescribed at Discharge: Not Applicable/Non-Smoker Contact Information Discharge Discharge Address: [address], [place] [address] Discharge Plan Discharge Items Patient Disposition: Home - Self-Care Reason For Visit: MDD Discharge Diagnosis: major depressive disorder Activity: Resume your previous activity Non-emergency contact: Primary Care Provider, Psychiatrist and Therapist Call non-emergency contact if: you have any medication questions and your symptoms worsen Follow-up/Referrals: Andriy Johnson DO [Primary Care Provider] - Diet: Regular Addtl Attending Provider Instructions: SPECIAL CARE INSTRUCTIONS: 1. Follow through with your scheduled aftercare appointments. If unable to keep an appointment, please call to reschedule. 2. Take your medication only as prescribed. Medication should not be changed or stopped without the approval of your doctor. In the event of worsening symptoms or concerns about side effects, contact your doctor immediately. 3. Utilize new healthy coping skills, anger management skills, and stress management skills learned during your hospitalization. Journal feelings and process them with a support person. Identify stressors or situations that may result in relapse, deterioration or inappropriate behaviors and develop a plan to deal with those issues. 4. If your coping skills are ineffective and you are in crisis, contact your outpatient providers for direction. If unable to reach your providers, please call the [facility] CRISIS LINE AT , go to the [facility] walk-in center at [address], [address], [place], or go to the closest Emergency Room. 5. Avoid alcohol and un-prescribed drugs. 6. You have been provided with the Mental Health Advance Directives Pamphlet for your review. 7. Your condition is stable for discharge to outpatient level of care, but recovery is an ongoing process. Ifthoughts to harm yourself or others return, follow the safety plan developed during your stay. Planning for a safe return home includes securing weapons. Our treatment team recommends weaponsbe removed from the home until your outpatient provider reassesses your progress. In rare cases where the items themselvescannot be removed, guns and ammunitionshould be secured separatelyand keys stored by a reliable personoutside of the home. If you were admitted on an involuntary commitment, the police or other legal authorities may be involved in this process. AFTERCARE APPOINTMENTS: * Please call your insurance company prior to your scheduled appointment to confirm your aftercare providers are covered. Take your insurance information to your appointments. WHO TO CALL AND WHEN: Medical Emergencies: For questions or emergencies related to your hospital stay, please contact the Inpatient Behavioral Health Unit at [phone]. A financial investment adviser is on-call 12/04 for the Behavioral Health Unit for emergencies At any time you feel your situation is an emergency, you may also call 911 immediately. Pending Studies at Discharge: No Stand-Alone Forms: [facility], Smoking Cessation Medications and DC Order Prescriptions: New lamotrigine [Lamictal] 25 mg Tablet 25 mg PO HS Qty: 30 0RF bupropion HCl 150 mg Tablet Extended Release 24 Hr 150 mg PO QAM Qty: 30 0RF Continued montelukast [Singulair] 10 mg tablet 10 mg PO DAILY fluticasone propionate 50 mcg/actuation [place],Suspension 2 spray INTRANASAL DAILY cetirizine [Zyrtec] 10 mg Tablet 10 mg PO DAILY levothyroxine 25 mcg tablet 25 mcg PO DAILYBB sertraline 100 mg tablet 100 mg PO BID rosuvastatin 10 mg tablet 10 mg PO DAILY multivitamin Tablet 1 tab PO DAILY Qty: 1 0RF Changed trazodone 50 mg tablet 50 mg PO HS Qty: 1 0RF Discontinued Trintellix 20 mg Tablet 20 mg PO DAILY Discharge Orders: Discharge Order (Routine); Ordered 03/06/23 Ordered By: Triny Corea Admission Data Admit Date/Time: 03/01/23 20:14 Attending Provider: Marilyn Duarte Admit Provider: Marilyn Duarte Primary Care Provider: Andriy Johnson Coding Level of Care Code 06878 D/C day mgmt > 30 min Diagnoses Major depressive disorder, recurrent severe without psychotic features F33.2 Suicidal ideations R45.850
[2023-03-06] MEDS: ROSUVASTATIN CALCIUM 10 MG TAB PO SCH (08:54)
[2023-03-06] MEDS: FLUTICASONE PROPIONATE NA SPR 16 GM BTL SCH (08:54)
[2023-03-06] MEDS: buPROPion XL 150 MG TABCR PO SCH (08:54)
[2023-03-06] MEDS: MULTIVITAMIN TAB PO SCH (08:54)
[2023-03-06] MEDS: LEVOTHYROXINE SODIUM 25 MCG TABLET PO SCH (08:54)
[2023-03-06] MEDS: SERTRALINE HCL 100 MG TABLET PO SCH (08:54)
[2023-03-06] MEDS: MONTELUKAST SODIUM 10 MG TABLET PO SCH (08:54)
[2023-03-06] MEDS: CETIRIZINE HCL 10 MG TABLET PO SCH (08:54)
== END 2023-03-06 14:07 | disposition home or self-care (01) | DRG 885 ==
LOC: ED 18:12 → 3S 20:14